=== PATIENT | male | born 1975 | race Caucasian/White ===

== ENCOUNTER 2021-03-02 14:43 | Inpatient (IN) ==
--- NOTE | 2021-03-02 15:54 | XRay Report ---
XR chest 2V PA/lateral CLINICAL HISTORY: Atypical chest pain TECHNIQUE: AP and lateral frontal radiograph of the chest was obtained. Comparison: None available at the time of this dictation. FINDINGS: No lines and tubes are seen. Cardiomegaly is noted. Faint bibasilar airspace opacities are seen. No e vidence of pleural effusion or pneumothorax. IMPRESSION: Faint bibasilar airspace opacities which may represent atelectasis, pneumonia, and/or aspiration. ACT 112: Negative or not required by law. Electronically signed by: Bhavesh Bourgeois M.D. 03/02/2021 3:52 PM
[2021-03-02 16:29] LABS: Basophils # (auto) 0.03 K/uL (0-0.2); Basophils % (auto) 0.5 %; Eosinophils # (auto) 0.11 K/uL (0-0.5); Eosinophils % (auto) 1.8 %; Hematocrit (blood only) 40.8 % (42-52); Hemoglobin 13.3 g/dL (14.0-18.0); Lymphocytes # (auto) 0.91 K/uL (1.2-3.4); Mean Corpuscular Hgb Conc 32.6 g/dL (32-36); Mean Corpuscular Volume 89.1 fL (80-100); Mean Platelet Volume 10.5 fL (7.4-10.4); Monocytes # (auto) 0.48 K/uL (0.11-0.59); Monocytes % (auto) 7.9 %; Neutrophils # (auto) 4.53 K/uL (1.4-6.5); Neutrophils % (auto) 74.8 %; Platelet Count 204 K/uL (130-400); RDW Coefficient of Variation 13.8 % (11.5-14.5); RDW Standard Deviation 44.6 fL (36.4-46.3); Red Blood Count 4.58 M/uL (4.7-6.1); White Blood Count 6.06 K/uL (4.8-10.8)
[2021-03-02 16:40] LABS: INR 1.1 (0.9-1.1); Partial Thromboplastin Time 25.7 Seconds (21.0-31.0); Prothrombin Time 11.5 Seconds (9.0-12.0)
[2021-03-02 16:46] LABS: Albumin Level 3.4 gm/dl (3.4-5.0); BUN Creatinine Ratio 17.5 (10-20); Creatinine Clr Calc Pharmacy 90.6 ml/min; Est GFR (African American) 81.1 ml/min; Potassium 3.5 mmol/L (3.5-5.1)
[2021-03-02] MEDS ORDERED: FUROSEMIDE 40 MG/4 ML VIAL IV ONE (16:54)
[2021-03-02] MEDS ORDERED: NITROGLYCERIN 2% OINTMENT 30GM TUBE EXT STA (16:57)
--- NOTE | 2021-03-02 16:57 | Emergency Department Note ---
Impression & Plan SOB (shortness of breath), Cardiomyopathy, Pedal edema, CHF (congestive heart failure), Elevated troponin ED Provider Note NAME: SUE QUINN AGE: 45 SEX: M : 1975 ARRIVES VIA: Walk-In INFORMANT: [Patient] ED PROVIDER(S): [Parrish Summers MD] CHIEF COMPLAINT: Swelling, short of breath HISTORY OF PRESENT ILLNESS: The patient is a 45-year-old male who presents to the ER with a cough that has been ongoing for multiple months. No fever. The cough has been dry. In the last several months, he has also noticed increasing edema. The swelling started in his feet and has now spread to his abdomen. He has noticed exertional shortness of breath and some difficulty sleeping. The patient states that any exertion causes him to be winded. There has been no chest pain. No vomiting or diarrhea. No urinary difficulty. He has no history of heart or lung disease. The patient spoke with his [facility] office and was referred to the ED for further testing. Of note, the patient is not vaccinated for COVID-19 or influenza. No Covid exposures. REVIEW OF SYSTEMS: See HPI for pertinent positives and negatives. A total of ten systems were reviewed and were otherwise negative. PMHx/PSHx: See Below SOCIAL HISTORY: See Below. PHYSICAL EXAM: GENERAL: Patient is in no acute distress. HEENT: No acute trauma, normocephalic atraumatic, mucous membranes moist, no nasal congestion, no scleral icterus. NECK: No stridor, no adenopathy, no meningismus, trachea is midline. LUNGS: He does have some crackles bilaterally, worse on the left. No wheezing. No respiratory distress. HEART: Tachycardic, no murmurs, regular rhythm. ABDOMEN: Soft, nontender, bowel sounds positive, no hernias, no peritonitis. Abdominal wall edema noted. EXTREMITIES: No cyanosis. Marked bilateral pedal edema extending up from the feet to the thighs. NEUROLOGIC: Oriented x 3, no acute motor or sensory deficits, no focal weakness. SKIN: No rash, no jaundice, no diaphoresis. DIFFERENTIAL DIAGNOSIS: Reactive airway disease, pneumonia, cardiomyopathy, COVID-19, renal or liver failure, pleural effusion, pneumothorax, COPD, CHF, infection, cardiac ischemia, pulmonary embolism, bronchitis, musculoskeletal, gastrointestinal, as well as other pathologies. EMERGENCY DEPARTMENT COURSE/PROCEDURES: ECG: Indication was shortness of breath. The ECG shows a sinus tachycardia with a rate of 109. There is some nonspecific ST change particularly in the lateral leads. There is no ST elevation, no PVCs. The QTc is 495. No old ECGs available for comparison. Continuous Cardiac Monitoring: An order was placed for continuous cardiac monitoring. The monitor shows a rate of 106 with sinus tachycardia. MEDICAL DECISION MAKING: There is no leukocytosis. A very mild anemia was present. There was a normal platelet count. No coagulopathy. No significant electrolyte abnormality or kidney failure. No concerning liver enzyme elevation. TSH was normal. BNP was quite elevated consistent with fluid overload and CHF. Chest film does show marked cardiomegaly as well as some presumed mild CHF. ECG shows a sinus tachycardia with some nonspecific change, no ST elevation. Cardiac enzyme testing x1 does show a slight elevation indicating some cardiac injury or strain. Covid testing is pending. The patient presents hypertensive, tachycardic and short of breath. He is markedly edematous. He appears to have CHF and cardiomegaly by work-up. The patient had a Dias catheter ordered. He was given IV Lasix, nitroglycerin paste. I did speak with cardiology. Hospitalization, diuresis, further work-up is in order. He will require a cardiac echo. I did speak with the patient about his findings, I spoke with the employment case manager. The on-call hospitalist was consulted. Past Med/Surg History Medical History No significant medical problems Social History Smoking Status: Never smoker Feels Safe at Home: Yes Allergies Allergies Allergy/AdvReac Type Severity Reaction Status Date / Time No Known Allergies Allergy Unverified 03/02/21 17:41 Home Meds Home Medications Medication Instructions Recorded Confirmed ibuprofen 200 mg tablet 0 mg PO Q6H PRN 03/02/21 03/02/21 Results & Data (ED) Vital Signs Vital Signs - 24 hr 03/02/21 15:15 Temperature 36.8 C Temperature Source Temporal Artery Scan Pulse Rate 110 H Respiratory Rate 22 Respiratory Effort / Characteristics Non-Labored Spontaneous Respiratory Depth Normal Blood Pressure 221/140 H Blood Pressure Mean 167 Pulse Oximetry 99 Oxygen Delivery Method Room Air Sepsis Recent Fever Within 48 Hours No Sepsis New/Unexplained Change in Mental Status No Sepsis Action Taken by Nursing No Action Required Home Medications Current Medication List: was personally reviewed by me Laboratory Data Attestation: I reviewed the patient's lab results. Result diagrams: 03/02/21 16:10 03/02/21 16:10 Lab Results 03/02/21 03/02/21 03/02/21 Range/Units 16:10 16:10 16:10 WBC 6.06 (4.8-10.8) K/uL RBC 4.58 L (4.7-6.1) M/uL Hgb 13.3 L (14.0-18.0) g/dL Hct 40.8 L (42-52) % MCV 89.1 (80-100) fL MCH 29.0 (25-34) pg MCHC 32.6 (32-36) g/dL RDW Std Deviation 44.6 (36.4-46.3) fL RDW Coeff of Sri 13.8 (11.5-14.5) % Plt Count 204 (130-400) K/uL MPV 10.5 H (7.4-10.4) fL Immature Gran % (Auto) 0.0 % Neut % (Auto) 74.8 % Lymph % (Auto) 15.0 % [place] % (Auto) 7.9 % Eos % (Auto) 1.8 % Baso % (Auto) 0.5 % Neut # (Auto) 4.53 (1.4-6.5) K/uL Lymph # (Auto) 0.91 L (1.2-3.4) K/uL [place] # (Auto) 0.48 (0.11-0.59) K/uL Eos # (Auto) 0.11 (0-0.5) K/uL Baso # (Auto) 0.03 (0-0.2) K/uL Immature Gran # (Auto) 0.00 (0.00-0.02) K/uL PT 11.5 (9.0-12.0) Seconds INR 1.1 (0.9-1.1) APTT 25.7 (21.0-31.0) Seconds PTT Ratio 1.0 Sodium 138 (136-145) mmol/L Potassium 3.5 (3.5-5.1) mmol/L Chloride 103 (98-107) mmol/L Carbon Dioxide 30 (21-32) mmol/L Anion Gap 5.0 (3-11) BUN 22 H (7-18) mg/dl Creatinine 1.23 (0.6-1.4) mg/dl Est Cr Clr Drug Dosing 90.6 ml/min Est GFR ( Amer) 81.1 ml/min Est GFR (Non-Af Amer) 70.0 ml/min BUN/Creatinine Ratio 17.5 (10-20) Glucose 124 H (70-99) mg/dl Calcium 9.0 (8.5-10.1) mg/dl Magnesium (1.8-2.4) mg/dl Total Bilirubin 0.9 (0.2-1) mg/dl AST 29 (15-37) U/L ALT 41 (12-78) Alkaline Phosphatase 81 (45-117) U/L Troponin I 0.059 H* (0-0.045) ng/ml NT-Pro-B Natriuret Pep (0-450) pg/ml Total Protein 7.7 (6.4-8.2) gm/dl Albumin 3.4 (3.4-5.0) gm/dl Globulin 4.3 H (2.5-4.0) gm/dl Albumin/Globulin Ratio 0.8 L (0.9-2) TSH (0.300-4.500) uIu/ml 03/02/21 Range/Units 16:10 WBC (4.8-10.8) K/uL RBC (4.7-6.1) M/uL Hgb (14.0-18.0) g/dL Hct (42-52) % MCV (80-100) fL MCH (25-34) pg MCHC (32-36) g/dL RDW Std Deviation (36.4-46.3) fL RDW Coeff of Sri (11.5-14.5) % Plt Count (130-400) K/uL MPV (7.4-10.4) fL Immature Gran % (Auto) % Neut % (Auto) % Lymph % (Auto) % [place] % (Auto) % Eos % (Auto) % Baso % (Auto) % Neut # (Auto) (1.4-6.5) K/uL Lymph # (Auto) (1.2-3.4) K/uL [place] # (Auto) (0.11-0.59) K/uL Eos # (Auto) (0-0.5) K/uL Baso # (Auto) (0-0.2) K/uL Immature Gran # (Auto) (0.00-0.02) K/uL PT (9.0-12.0) Seconds INR (0.9-1.1) APTT (21.0-31.0) Seconds PTT Ratio Sodium (136-145) mmol/L Potassium (3.5-5.1) mmol/L Chloride (98-107) mmol/L Carbon Dioxide (21-32) mmol/L Anion Gap (3-11) BUN (7-18) mg/dl Creatinine (0.6-1.4) mg/dl Est Cr Clr Drug Dosing ml/min Est GFR ( Amer) ml/min Est GFR (Non-Af Amer) ml/min BUN/Creatinine Ratio (10-20) Glucose (70-99) mg/dl Calcium (8.5-10.1) mg/dl Magnesium 2.2 (1.8-2.4) mg/dl Total Bilirubin (0.2-1) mg/dl AST (15-37) U/L ALT (12-78) Alkaline Phosphatase (45-117) U/L Troponin I (0-0.045) ng/ml NT-Pro-B Natriuret Pep 96295 H (0-450) pg/ml Total Protein (6.4-8.2) gm/dl Albumin (3.4-5.0) gm/dl Globulin (2.5-4.0) gm/dl Albumin/Globulin Ratio (0.9-2) TSH 2.190 (0.300-4.500) uIu/ml Imaging Data Radiologist's Impression: Chest X-Ray 03/02/21 15:18 XR chest 2V PA/lateral CLINICAL HISTORY: Atypical chest pain TECHNIQUE: AP and lateral frontal radiograph of the chest was obtained. Comparison: None available at the time of this dictation. FINDINGS: No lines and tubes are seen. Cardiomegaly is noted. Faint bibasilar airspace opacities are seen. No evidence of pleural effusion or pneumothorax. IMPRESSION: Faint bibasilar airspace opacities which may represent atelectasis, pneumonia, and/or aspiration. ACT 112: Negative or not required by law. Electronically signed by: Bhavesh Bourgeois M.D. 03/02/2021 3:52 PM Discharge Plan Visit Data Chief Complaint: Swelling/Edema to Extremity Stated Complaint: SWELLING IN FEET, SOB, COUGH ED Provider: Parrish Summers Discharge Problem: SOB (shortness of breath), Cardiomyopathy, Pedal edema, CHF (congestive heart failure), Elevated troponin Patient Disposition: Admitted As Inpatient Condition: Fair Forms Stand Alone Forms: [facility] Prescriptions Prescriptions: No Action ibuprofen 200 mg Tablet 0 mg PO Q6H PRN (Reason: Pain) RF: 0 Referrals Referrals: PCP,NO [Primary Care Provider] -
[2021-03-02 16:58] LABS: Albumin Globulin Ratio 0.8 (0.9-2); Bilirubin,Total 0.9 mg/dl (0.2-1); Globulin 4.3 gm/dl (2.5-4.0); Total Protein 7.7 gm/dl (6.4-8.2); Troponin I 0.059 ng/ml (0-0.045)
[2021-03-02 17:24] LABS: Magnesium 2.2 mg/dl (1.8-2.4); Thyroid Stimulating Hormone 2.19 uIu/ml (0.300-4.500)
--- NOTE | 2021-03-02 18:05 | History & Physical Report ---
Date of Service March 02, 2021 Assessment & Plan (1) Hypertensive emergency: Plan: This is a 45-year-old male with no known past medical history who presents with progressive swelling over the past 2 months and was found to have hypertensive emergency with decompensated heart failure. Initial BP 221/140, received 1" paste, repeat BP 234/153 Evidence of heart failure, proteinuria indicating end organ damage Given 20mg IV Labetalol in ED, but BP increased again Case discussed with Dr. Weller and Dr. Mark. Admitting to ICU for ntg drip and close monitoring During first 24 hours, SBP no lower than 170 (2) Acute decompensated heart failure: Plan: Progressive edema over past 2 months extending from feet up to chest. Also with cough, dyspnea on exertion, orthopnea, PND pro-BNP 17,147 CXR with faint bibasilar airspace opacities which may represent atelectasis, pneumonia, and/or aspiration Case discussed with Dr. Weller in ED and 60mg IV Lasix given in ED Echocardiogram in AM Strict I&Os with barrientos in place, daily weights, low sodium diet, supplemental O2 as needed (3) Elevated troponin: Plan: Initial trop 0.059 in setting of hypertensive emergency and heart failure No CP or significant ischemia on EKG Trend troponin, monitor on tele (4) Alcohol use: Plan: History of heavy alcohol use, has decreased to 2 beers 3x/week AWSS protocol, IV ativan as needed DVT Ppx: SQ heparin Code status: FULL PCP: Previously followed with [facility] Dispo: Admitted to ICU Patient seen in collaboration with Dr. De Luna. Please see addendum. History of Present Illness Chief Complaint: Edema Primary Care Provider: NO PCP This is a 45-year-old male with no known past medical history who presents with progressive swelling over the past 2 months. First noted swelling in feet and then legs and it extended up to chest earlier this week. Patient endorsing dry cough, dyspnea on exertion, orthopnea and PND. Has a high sodium diet. Denies any previous diagnosis of cardiomyopathy or heart failure but does have significant heart disease history and family. Denies any fever, chills or chest pain. No nausea, vomiting, abdominal pain, dysuria, diarrhea constipation. Did not take any home medications besides occasional Advil. Last seen by [facility] provider back in 2014. States he was started on a blood pressure med then that was discontinued. Has not followed up with primary care since then. Chews tobacco. Has significant alcohol history but is decreased use to 2 beers 3x/week. Called [facility] for appointment today but was directed to come to ER for further evaluation. Allergies Allergy/AdvReac Type Severity Reaction Status Date / Time No Known Allergies Allergy Unverified 03/02/21 17:41 Home Medications Medication Instructions Recorded Confirmed Type ibuprofen 200 mg tablet 0 mg PO Q6H PRN 03/02/21 03/02/21 History Past Med/Surg History Medical History (Updated 03/03/21 @ 15:37 by Laly De Luna, DO) No significant medical problems Surgical History No history of previous surgery Family History Other Diabetes Heart disease Social History (Updated 03/02/21 @ 21:28 by Monica Santos PA-C) Smoking Status: Never smoker Tobacco Type: Smokeless Tobacco (Dip or Chew) Hx Alcohol Use: Yes Alcohol type: beer Alcohol type Comment: 2 beers 3x/week Hx Substance Use: No Preferred Language: Hungarian Communication Ability: Effective Director News Required: No Beliefs That Will Affect Care: None marital status: Current Living Situation: Spouse and Family Feels Safe at Home: Yes Assistive Devices: Oxygen - at Night Review of Systems Review of Systems: At least ten systems reviewed and negative except as noted in the HPI. Physical Exam Physical Exam: General Appearance: WD/WN, vitals as above, NAD, sitting up in bed, pleasant, conversing easily Head: normocephalic, atraumatic Eyes: normal inspection, PERRL, conjunctivae normal, anicteric sclerae ENT: external ear and nose normal, oropharynx normal Neck: normal visual inspection, trachea midline, no thyromegaly Respiratory: normal respiratory effort, bibasilar rales. No accessory muscle use Cardiovascular: tachycardic rate, regular rhythm, no murmur, normal peripheral pulses, 2+ BLE edema extending from feet up to chest wall. Vessels: + JVD Chest: normal inspection of chest Abdomen/GI: normal bowel sounds, soft but distended, nontender, no hepatosplenomegaly Extremities/Musculoskeletal: no cyanosis or clubbing, extremities motor strength 5/5 Neurologic: PERRL, EOMI, accommodation nl, no face palsy, no dysarthria, CN's II-XI intact bilaterally and moves all extremities Psychiatric: A+Ox3, euthymic affect Skin: no rashes, normal color, warm/dry Results & Data Results & Data ([facility]) Vital Signs (Past 12 Hours) Vital Signs Temp Pulse Resp BP Pulse Ox 03/02/21 15:15 36.8 C 110 H 22 221/140 H 99 Laboratory Results Short CBC 03/02/21 Range/Units 16:10 WBC 6.06 (4.8-10.8) K/uL Hgb 13.3 L (14.0-18.0) g/dL Hct 40.8 L (42-52) % Plt Count 204 (130-400) K/uL BMP 03/02/21 16:10 Sodium 138 Potassium 3.5 Chloride 103 Carbon Dioxide 30 BUN 22 H Creatinine 1.23 Glucose 124 H Calcium 9.0 Cardiac Enzymes 03/02/21 Range/Units 16:10 Troponin I 0.059 H* (0-0.045) ng/ml Liver Function 03/02/21 Range/Units 16:10 Total Bilirubin 0.9 (0.2-1) mg/dl AST 29 (15-37) U/L ALT 41 (12-78) Alkaline Phosphatase 81 (45-117) U/L Albumin 3.4 (3.4-5.0) gm/dl Urine 03/02/21 Range/Units 18:40 Urine Color Dark Yellow Urine Appearance Clear (Clear) Urine pH 5.0 (4.5-7.5) Ur Specific [place] 1.020 (1.000-1.030) Urine Protein 3+ H (Negative) Urine Glucose (UA) Negative (Negative) Diagnostic Findings Chest X-Ray 03/02/21 15:18 XR chest 2V PA/lateral CLINICAL HISTORY: Atypical chest pain TECHNIQUE: AP and lateral frontal radiograph of the chest was obtained. Comparison: None available at the time of this dictation. FINDINGS: No lines and tubes are seen. Cardiomegaly is noted. Faint bibasilar airspace opacities are seen. No evidence of pleural effusion or pneumothorax. IMPRESSION: Faint bibasilar airspace opacities which may represent atelectasis, pneumonia, and/or aspiration. ACT 112: Negative or not required by law. Electronically signed by: Bhavesh Bourgeois M.D. 03/02/2021 3:52 PM Code Status & VTE Plan VTE Prophylaxis Plan VTE Prophylaxis will be ordered: Yes Supervising Physician Co-Signing Physician Notes I have seen and examined the patient and have discussed the case with the provider above. I agree with the assessment and plan as stated. 45 yo M with hypervolemia 2/2 uncertain etiology. No medical history. Suspect involvement from heart, liver and/or kidneys. He appears WNWD and hypervolemic. He is comfortable and laid back, not working to breathe. Lungs are clear to auscultation and cardiac auscultation reveals S1/2 without murmurs, gallops or rubs. There is pitting edema above his hips bilaterally. He reports scrotum is swollen and , who is at bedside, states that he has sacral pitting edema. Check UA for protein, echo as above. Agree with ICU for parenteral management of hypertensive emergency and continued investigation. Otherwise cont plan as above. DO Calixto
[2021-03-02] MEDS ORDERED: LABETALOL HCL IV 5 MG/ML 20ML IV STA ×2 (18:33→22:00)
[2021-03-02 18:53] LABS: Appearance Urine Clear (Clear); Bacteria Urine Automated Negative (Negative); Bilirubin Urine Negative (Negative); Blood Urine 1+ (Negative); Color Urine Dark Yellow; Epithelial Cell Urine Auto >30 /lpf (0-5); Glucose Urine UA Negative (Negative); Ketones Urine Negative (Negative); Leukocyte Esterase Urine Negative (Negative); Nitrite Urine Negative (Negative); Protein Urine 3+ (Negative); Urobilinogen Urine Negative (Negative)
[2021-03-02] MEDS ORDERED: STAT IV Infusion **Titration per Protocol STA (19:00)
[2021-03-02] MEDS ORDERED: NITROGLYCERIN/D5W 100MCG/ML 250 ML IV SCH (19:32)
[2021-03-02] MEDS ORDERED: POLYETHYLENE (MIRALAX) 17 GM PACK PO PRN (19:32)
[2021-03-02] MEDS ORDERED: ONDANSETRON INJ 2 MG/ML 2 ML VIAL IV PRN (19:32)
[2021-03-02] MEDS ORDERED: ACETAMINOPHEN 325 MG TAB PO PRN (19:32)
[2021-03-02] MEDS ORDERED: ICU PROTOCOL FOR HYPERGLYCEMIA PRN (19:32)
[2021-03-02] MEDS: NITROGLYCERIN/D5W 100 MCG/ML BTL ONE ×2 (19:37)
[2021-03-02] MEDS ORDERED: LORazepam 1 MG/2 ML VIAL IV PRN (21:34)
[2021-03-02] MEDS ORDERED: amLODIPine BESYLATE 5 MG TAB PO ONE (22:03)
--- NOTE | 2021-03-02 22:05 | Critical Care Consultation ---
Date of Consultation March 02, 2021 Assessment & Plan (1) Hypertensive emergency: Impression: 45-year-old male presents to the ICU with hypertensive emergency requiring nitro drip and decompensated heart failure. Currently undergoing blood pressure control with high parameters and diuresis. Neuro - [facility] ICU: Negative Cardiac - Hypertensive emergencyinitial blood pressure of 221/140 treated with IV labetalol and Nitropaste but became increasingly hypertensive and now requiring nitro drip. -Mildly elevated troponin, will trend for now. +3 proteins in urine -Added on IV labetalol as needed in hopes to titrate nitro drip. Goal SBP 170-190 for the first 24 hours -Cardiology consulted, will appreciate recommendations Decompensated heart failureno known history of heart failure but does have family history -Received IV Lasix in ED with good response, thus far -1.6 L. We will continue with diuresis as patient has BNP 17,000 and volume overloaded on exam. -Mildly elevated troponin (trending), no ST changes on EKG -Follow-up cardiology recommendations -Echo pending -Continuous monitoring on telemetry Respiratory - No history of pulmonary disease. History of tobacco use is smokeless. Patient does have dyspnea with exertion, expect to improve with diuresis. He is currently maintaining oxygen saturation on room air without respiratory distress. Continuous monitoring pulse ox BLE Doppler negative for DVT GI - Low-sodium diet RENAL/LYTES - Creatinine stable at 1.23. Monitor routine BMPs and replete electrolytes as indicated. - Strict I's and O's ENDO - No history of diabetes or thyroid disease. TSH within normal limits ICU hyperglycemic protocol HEME - H&H stable, monitor routine CBCs ID - No indication for infectious process at this time LINES/IV ACCESS - Peripheral IVs x2 DVT PROPHYLAXIS - SCDs, subcu heparin Thank you for allowing us to participate in the care of this patient. Please refer to my attending physician's documentation for any further recommendations. (2) Elevated troponin: (3) Acute decompensated heart failure: (4) Alcohol use: History of Present Illness Attending Physician: Laly De Luna, History of Present Illness Patient is a 45-year-old male with out known past medical history who presents today emergency department with complaints of generalized swelling primarily in the lower extremities bilaterally, cough, dyspnea with exertion. Patient states that he has not been to primary care physician in the past 6 years but has no previous history of hypertension or heart failure. Patient had attempted to schedule a clinic appointment earlier today but was directed to come to the ER for evaluation. On arrival to the emergency department he was found to be in hypertensive emergency with blood pressure 221/140. Patient had mildly elevated troponin and +3 proteins in urine, elevated BNP 17,000. He is initially given Lasix and labetalol and 1 inch Nitropaste was administered. Patient became hypertensive again and was placed on nitro drip. He is now admitted to ICU for further management. On evaluation, patient denies headache or dizziness, recent illnesses or fevers or sore throat, chest pain or palpitations, abdominal pain, nausea or vomiting or diarrhea. He does condone shortness of breath and's what appears to be pleuritic chest pain with coughing. Patient states that he has had a dry cough for the past few months without sputum production. Patient has +3 edema bilaterally in lower extremities. Allergies Allergy/AdvReac Type Severity Reaction Status Date / Time No Known Allergies Allergy Unverified 03/02/21 17:41 Home Medications Medication Instructions Recorded Confirmed Type ibuprofen 200 mg tablet 0 mg PO Q6H PRN 03/02/21 03/02/21 History Patient History Medical History (Updated 03/02/21 @ 21:20 by Monica Santos PA-C) No significant medical problems Surgical History No history of previous surgery Family History Other Diabetes Heart disease Social History (Updated 03/02/21 @ 21:28 by Monica Santos PA-C) Tobacco Type: Smokeless Tobacco (Dip or Chew) Hx Alcohol Use: Yes Alcohol type: beer Alcohol type Comment: 2 beers 3x/week Hx Substance Use: No Feels Safe at Home: Yes Review of Systems Review of Systems: All systems reviewed & are unremarkable except as noted in HPI & below Physical Exam Constitutional: cooperative and comfortable Eyes: PERRL, conjunctivae normal, anicteric sclerae ENMT: external ear and nose normal, oropharynx normal Neck: trachea midline, no thyromegaly Respiratory: normal respiratory effort, lungs clear to auscultation + cough (Nonproductive); no labored breathing and not tachypneic Cardiovascular: RRR, no murmur, no edema Heart Sounds: normal S1 and normal S2; no murmur Extremities: + edema (+3 bilateral lower extremity) Gastrointestinal (Abdomen): Inspection/Auscultation: normal bowel sounds and + abdominal edema Percussion/Palpation: abdomen nontender Musculoskeletal: no cyanosis or clubbing, extremities motor strength 5/5 Skin: no rashes, warm and dry Neurologic: PERRL, EOMI, accommodation nl, no face palsy, no dysarthria Psychiatric: A+Ox3, euthymic affect Results & Data Results & Data ([facility]) Vital Signs (Past 12 Hours) Vital Signs Temp Pulse Pulse Resp BP BP Pulse Ox 03/02/21 20:45 97 H 22 189/124 H 92 03/02/21 20:40 97 H 20 179/115 H 92 03/02/21 20:35 97 H 20 175/109 H 92 03/02/21 20:30 98 H 20 181/118 H 95 03/02/21 20:26 94 H 20 179/107 H 96 03/02/21 20:20 96 H 20 191/130 H 94 03/02/21 20:10 80 20 172/124 H 94 03/02/21 20:05 78 20 185/140 H 94 03/02/21 20:00 83 20 179/123 H 94 03/02/21 19:55 75 18 165/123 H 95 03/02/21 19:50 79 18 168/120 H 95 03/02/21 19:41 78 18 167/115 H 96 03/02/21 18:46 191/149 H 03/02/21 18:00 234/153 H 03/02/21 15:15 36.8 C 110 H 22 221/140 H 99 Coding Level of Care Code 95659 Inpt Consult Level 3 Diagnoses Elevated troponin R77.8 Hypertensive emergency I16.1 Acute decompensated heart failure I50.9 Alcohol use Z72.89
[2021-03-02] MEDS: HEPARIN SOD 5,000 UNIT/0.5 ML VIAL SQ SCH (22:25)
--- NOTE | 2021-03-02 22:32 | Ultrasound Report ---
US venous doppler LE BI CLINICAL HISTORY: Bilateral leg swelling COMPARISON: None available at the time of this dictation. TECHNIQUE: Bilateral lower extremity real-time compression venous ultrasound with Color Doppler imagi ng. Utilizing real-time ultrasonic imaging multiple real time high-resolution ultrasonic images with comp ression and noncompression maneuvers of the deep venous system in addition to color doppler imaging w ere performed from the common femoral vein through the proximal calf veins. FINDINGS: Currently there is normal compressibility of the deep venous system from the common femoral vein thro ugh the proximal calf veins. No current evidence of acute thrombosis is identified. Incidental note is made of a popliteal cyst on the right measuring approximately 2.8 x 3.5 x 1.1 cm. Impression: No evidence of deep venous thrombus. Right popliteal cyst. ACT 112: Negative or not required by law. Electronically signed by: Jackson Juares M.D. 03/02/2021 10:30 PM
[2021-03-03] MEDS ORDERED: COUGH DROP (SUGAR FREE) LOZ 24 LOZ/1 BOX BUCCAL ONE (01:05)
[2021-03-03] MEDS: LABETALOL HCL IV 5 MG/ML 20ML IV PRN ×4 (04:28→23:41)
[2021-03-03] MEDS ORDERED: KETOROLAC TROMETHAMINE 15 MG/ML VIAL IV ONE (04:42)
[2021-03-03 04:51] LABS: Hematocrit (blood only) 37.9 % (42-52); Hemoglobin 12.2 g/dL (14.0-18.0); Mean Corpuscular Hemoglobin 28.9 pg (25-34); Mean Corpuscular Hgb Conc 32.2 g/dL (32-36); Mean Corpuscular Volume 89.8 fL (80-100); Mean Platelet Volume 10.4 fL (7.4-10.4); Platelet Count 210 K/uL (130-400); RDW Standard Deviation 45.4 fL (36.4-46.3); Red Blood Count 4.22 M/uL (4.7-6.1); White Blood Count 6.51 K/uL (4.8-10.8)
[2021-03-03 05:20] LABS: BUN Creatinine Ratio 17.2 (10-20); Calcium 8.7 mg/dl (8.5-10.1); Creatinine Clr Calc Pharmacy 82.5 ml/min; Est GFR (African American) 68.7 ml/min; Est GFR (Non-African American) 59.3 ml/min; Magnesium 2.1 mg/dl (1.8-2.4); Potassium 3.3 mmol/L (3.5-5.1)
[2021-03-03 05:24] LABS: Phosphorus 3.8 mg/dl (2.5-4.9)
[2021-03-03] MEDS ORDERED: LABETALOL HCL IV 5 MG/ML 20ML IV STA (05:37)
[2021-03-03] MEDS: HEPARIN SOD 5,000 UNIT/0.5 ML VIAL SQ SCH ×3 (05:54→21:25)
[2021-03-03] MEDS ORDERED: NITROGLYCERIN 2% OINTMENT 30GM TUBE EXT SCH (06:00)
--- NOTE | 2021-03-03 07:33 | XRay Report ---
XR chest 1V portable CLINICAL HISTORY: Resp failure TECHNIQUE: Single frontal radiograph of the chest was obtained. Comparison: Comparison is made to chest 2 views 03/02/2021 FINDINGS: No lines and tubes are seen. Cardiomegaly is noted. Prominence and cephalization of the vasculature i s seen. There is a left retrocardiac opacity. No evidence of pleural effusion or pneumothorax. IMPRESSION: Mild pulmonary edema. A left retrocardiac opacity may reflect atelectasis, pneumonia, and/or aspirati on. ACT 112: Negative or not required by law. Electronically signed by: Bhavesh Bourgeois M.D. 03/03/2021 7:31 AM
[2021-03-03 07:38] LABS: Estimated Average Glucose 120 mg/dl; Hemoglobin A1C 5.8 % (4.5-5.6)
[2021-03-03] MEDS ORDERED: POTASSIUM CHLORIDE CRTAB 20 MEQ TABCR PO STA ×2 (08:07→17:21)
--- NOTE | 2021-03-03 08:29 | Cardiology Consultation ---
Date of Consultation March 03, 2021 Assessment & Plan (1) Hypertensive emergency: (2) Acute HFrEF (heart failure with reduced ejection fraction): (3) Proteinuria: -Bedside Echocardiogram performed this morning and reviewed independently. Formal report to follow. At least moderate (perhaps severe) concentric left ventricular hypertrophy is present along with a trace circumferential pericardial effusion, and severe global left ventricular hypokinesis, qualitative left ventricular ejection fraction 25-29%. Patient has been found to have 3+ protein on urinalysis. A Dias catheter is in place. The patient has risk factors for coronary heart disease especially given his family history, his presentation suggests a nonischemic cardiomyopathy. Perhaps this is related to severe longstanding uncontrolled hypertension with hypertension related heart and kidney disease. Secondary hypertension is a consideration. Also echocardiogram findings could be consistent with infiltrative cardiomyopathy such as cardiac amyloidosis. With regards to his hypertension, his systolic blood pressure is now down from a presenting measurement of greater than 200 mmHg, to the 170s to 180s mm Hg range. IV nitroglycerin has been discontinued. Continue toprical nitroglycerin for now. Continue furosemide 40 mg IV this am , although , an additional dose this afternoon will be considered. Amlodipine has been discontinued due to concerns that it may worsend fluide retention. The patient's mildly elevated troponin is related to his volume overload, and left ventricular systolic dysfunction and does not represent an acute coronary syndrome. His EKG may be reflective of underlying ischemia or left ventricular hypertrophy. Diagnostics: Proceed with 24-hour urine collection for protein, urine catecholamines, urine metanephrines. Serum aldosterone and renin levels have been ordered. Serum electrophoresis, protein electrophoresis have been requested. A renal ultrasound has been requested. Therapeutics: Potassium chloride supplementation already ordered per the ICU team. We will consider adding spironolactone after the serum renin/aldosterone levels have been drawn as well as the 24-hour urine collection. Start carvedilol furosemide as noted, topical nitrates. A goal reduction in the presenting systolic BP of 25% has already been achieved. Agree with SQ heparin for DVT prophylaxis. History of Present Illness Attending Physician: Laly De Luna, History of Present Illness Dayton Holliday is a 45 year old male seen in cardiology consultation per the request of Monica Santos PA-C for the evaluation of edema, cardiomegaly on chest X-ray, and hypertensive emergency. The patient states that his recent complaints detracted to October, when he started noticing a cough and shortness of breath. Shortness of breath would occur both at rest when trying to lie down as well as with minimal exertion. By November, he started noticing swelling, first in his feet, but it has since progressed. Over the last few weeks, the patient spouse became progressively more concerned with the degree of severe swelling in his lower legs and abdomen. He ultimately presented to the emergency room yesterday and was found to have edema up to his mid chest. Chest x-ray revealed severe enlargement of the cardiac silhouette, left pleural effusion is noted. He was severely hypertensive upon presentation with a systolic blood pressure in excess of 200 mmHg. Patient has not seen medical care for approximately 5 years. He recalls being diagnosed with high blood pressure when he was around 39 years old and there was discussion with regards to placing him on medication. He was later diagnosed with "whitecoat" hypertension, and has not been on medication. Due to the severe hypertension requiring IV medications he was admitted to the intensive care unit from the emergency room last evening and received transient treatment with IV nitroglycerin which has since been titrated off. He received 60 mg of IV furosemide last evening, and is due to receive another 40 mg now. Dias catheter has been placed, and he has also received several doses of IV labetalol. His most recent systolic blood pressure is down to the upper 170s to 180 range. He feels comfortable, lying flat at present. He denies any chest discomfort. Denies subjective palpitations. Telemetry reveals sinus rhythm in the 90s. Past Medical History: Perhaps hypertension, untreated Family History: Mother at the age of 64 with h/o brain aneurysm possibly esophageal or lung carcinoma (pt not sure) Father, Dayton Holliday, alive at age of 67, h/o CAD, MS, CABG, coronary stents Perhaps has a pacemaker or AICD 2 Brothers, no heart disease Social History: Non smoker 2 beers, 3 x per week. Previously worked in construction More recently works in [email or web address] , spouse, Maddie Allergies Allergy/AdvReac Type Severity Reaction Status Date / Time No Known Allergies Allergy Unverified 03/02/21 17:41 Home Medications Medication Instructions Recorded Confirmed Type ibuprofen 200 mg tablet 0 mg PO Q6H PRN 03/02/21 03/02/21 History Patient History Medical History (Updated 03/03/21 @ 09:48 by Randy Weller DO) No significant medical problems Surgical History No history of previous surgery Family History Other Diabetes Heart disease Social History (Updated 03/02/21 @ 21:28 by Monica Santos PA-C) Smoking Status: Never smoker Tobacco Type: Smokeless Tobacco (Dip or Chew) Hx Alcohol Use: Yes Alcohol type: beer Alcohol type Comment: 2 beers 3x/week Hx Substance Use: No Preferred Language: Luxembourgish Communication Ability: Effective Analytical Engineer Required: No Beliefs That Will Affect Care: None Current Living Situation: Spouse and Family Other Information That Helps Us Care for You: No Feels Safe at Home: Yes Safety Concerns: Feels Safe At This Time Assistive Devices: None Review of Systems Review of Systems: All systems reviewed & are unremarkable except as noted in HPI & below Physical Exam Physical Exam: Temp Pulse Resp BP Pulse Ox 36.8 C 96 H 21 177/122 H 99 03/03/21 00:22 03/03/21 08:45 03/03/21 08:45 03/03/21 08:45 03/03/21 08:45 Constitutional: WD/WN, vitals as above Respiratory: Auscultation: + diminished lung sounds (decreased BS bilaterally at the bases) Cardiovascular: Rate/Rhythm: regular rhythm Heart Sounds: no murmur Vessels: + JVD Extremities: + edema (2+ BL LE edema) Gastrointestinal (Abdomen): findings consistent with fluid retention Results & Data ([facility]) Vital Signs (Past 12 Hours) Vital Signs Temp Pulse Pulse Resp BP BP Pulse Ox 03/03/21 06:21 79 22 170/103 H 92 03/03/21 06:05 86 22 193/112 H 92 03/03/21 04:46 94 H 22 181/104 H 98 03/03/21 04:30 197/126 H 03/03/21 04:00 101 H 20 178/109 H 92 03/03/21 02:31 104 H 18 174/114 H 92 03/03/21 02:28 99 H 22 182/115 H 94 03/03/21 02:18 100 H 22 174/103 H 93 01/04/22 01:00 102 H 20 170/104 H 96 03/03/21 00:22 36.8 C 96 H 20 181/120 H 98 03/02/21 23:50 96 H 24 164/113 H 92 03/02/21 23:40 96 H 22 177/120 H 94 03/02/21 23:36 96 H 22 179/119 H 94 03/02/21 23:35 98 H 22 175/124 H 96 03/02/21 23:30 80 22 171/125 H 97 03/02/21 23:22 81 18 173/118 H 97 03/02/21 23:15 78 20 172/122 H 96 03/02/21 22:50 78 22 163/115 H 96 03/02/21 22:35 86 22 163/99 H 96 03/02/21 22:30 91 H 22 163/103 H 96 03/02/21 22:29 98 H 22 167/104 H 97 03/02/21 22:15 98 H 24 183/120 H 95 03/02/21 22:10 95 H 22 183/114 H 96 03/02/21 22:05 93 H 22 173/117 H 96 03/02/21 21:55 97 H 22 185/122 H 95 03/02/21 21:50 95 H 24 175/119 H 95 03/02/21 21:45 96 H 22 175/118 H 95 03/02/21 21:40 98 H 20 187/117 H 95 03/02/21 21:35 98 H 22 190/121 H 95 03/02/21 21:30 98 H 22 177/121 H 95 03/02/21 21:25 94 H 20 193/115 H 95 03/02/21 21:20 94 H 20 180/117 H 95 03/02/21 21:15 92 H 20 183/112 H 94 03/02/21 21:10 96 H 22 180/116 H 94 03/02/21 21:05 96 H 22 194/108 H 94 03/02/21 20:55 99 H 22 195/119 H 95 03/02/21 20:50 97 H 20 196/117 H 95 03/02/21 20:45 97 H 22 189/124 H 92 03/02/21 20:40 97 H 20 179/115 H 92 03/02/21 20:35 97 H 20 175/109 H 92 03/02/21 20:30 98 H 20 181/118 H 95 03/02/21 20:26 94 H 20 179/107 H 96 Laboratory Results Cardiac Enzymes 03/02/21 03/02/21 Range/Units 16:10 22:34 AST 29 (15-37) U/L Troponin I 0.059 H* 0.037 (0-0.045) ng/ml Coagulation 03/02/21 Range/Units 16:10 PT 11.5 (9.0-12.0) Seconds APTT 25.7 (21.0-31.0) Seconds Lipids 03/03/21 Range/Units 04:20 Triglycerides 70 (0-150) mg/dl Cholesterol 103 (0-200) mg/dl HDL Cholesterol 27 mg/dl Cholesterol/HDL Ratio 4 CBC 03/02/21 03/03/21 Range/Units 16:10 04:20 WBC 6.06 6.51 (4.8-10.8) K/uL RBC 4.58 L 4.22 L (4.7-6.1) M/uL Hgb 13.3 L 12.2 L (14.0-18.0) g/dL Hct 40.8 L 37.9 L (42-52) % Plt Count 204 210 (130-400) K/uL Neut # (Auto) 4.53 (1.4-6.5) K/uL Lymph # (Auto) 0.91 L (1.2-3.4) K/uL Armstrong # (Auto) 0.48 (0.11-0.59) K/uL Eos # (Auto) 0.11 (0-0.5) K/uL Baso # (Auto) 0.03 (0-0.2) K/uL Comprehensive Metabolic Panel 03/02/21 03/03/21 Range/Units 16:10 04:20 Sodium 138 144 (136-145) mmol/L Potassium 3.5 3.3 L (3.5-5.1) mmol/L Chloride 103 108 H (98-107) mmol/L Carbon Dioxide 30 30 (21-32) mmol/L BUN 22 H 24 H (7-18) mg/dl Creatinine 1.23 1.41 H (0.6-1.4) mg/dl Glucose 124 H 147 H (70-99) mg/dl Calcium 9.0 8.7 (8.5-10.1) mg/dl AST 29 (15-37) U/L ALT 41 (12-78) Alkaline Phosphatase 81 (45-117) U/L Total Protein 7.7 (6.4-8.2) gm/dl Albumin 3.4 (3.4-5.0) gm/dl Intake and Output 03/02/21 03/03/21 03/03/21 22:59 06:59 14:59 Intake Total 7.15 / 744.05 736.9 / 744.05 Output Total 1599 250 / 1850 Balance -1592.85 / -1105.95 486.9 / -1105.95 Intake: IV 7.15 / 44.05 36.9 / 44.05 Nitroglycerin/D5w 100Mcg/ml 250 7.15 / 44.05 36.9 / 44.05 ml @ 0 MCG/MIN IV .Q0M [facility] Rx# :[id number] Oral 700 / 700 Output: Urine Amount (Catheter) 1599 250 / 1850 Dias/Indwelling 1599 250 / 1850 Other: Weight 96.9 kg 105.1 kg Weight Measurement Method Chair Scale Built in [facility] Diagnostic Findings EKG this am reveals SR at 84 bpm with T wave inversions in the precordial leads V3-V6 which are new compared to 03/02/21, QT is prolonged at just over 500 ms , but this is likely related to the morphology of the T waves
[2021-03-03] MEDS ORDERED: HEPARIN SOD 5,000 UNIT/0.5 ML VIAL SQ SCH (09:00)
[2021-03-03] MEDS ORDERED: FUROSEMIDE 40 MG/4 ML VIAL IV SCH (09:00)
[2021-03-03] MEDS ORDERED: amLODIPine BESYLATE 5 MG TAB PO SCH (09:00)
[2021-03-03] MEDS ORDERED: lisinopril 20 MG TAB PO SCH (09:00)
[2021-03-03] MEDS ORDERED: carvediloL 3.125 MG TAB PO SCH (09:30)
[2021-03-03] MEDS ORDERED: IBUPROFEN 200 MG TAB PO STA (10:27)
--- NOTE | 2021-03-03 10:35 | Ultrasound Report ---
ULTRASOUND KIDNEYS AND BLADDER CLINICAL HISTORY: Hypertension. COMPARISON STUDY: No priors. TECHNIQUE: Real-time, grayscale, and color flow sonography of the kidneys and bladder is performed. I mages are reviewed in the transverse and longitudinal planes. FINDINGS: Kidneys: The kidneys are normal in size and echotexture. The right kidney measures 11.9 cm length and the left kidney measures 11.0 cm in length. There is no hydronephrosis. No shadowing renal calculi a re identified. There is no sonographic evidence of contour deforming renal mass lesion. No perinephri c fluid is identified. Bladder: The bladder is decompressed around a Dias catheter and cannot be assessed. Ureteral jets co uld not be evaluated. Upper abdomen: Survey images of the liver show cirrhotic morphology. The spleen is enlarged measuring 15 cm in length. There is trace perisplenic ascites. IMPRESSION: 1. The kidneys are normal in size and without hydronephrosis. 2. The bladder was decompressed and could not be assessed. 3. Cirrhotic liver morphology and splenomegaly. 4. There is trace perisplenic ascites. ACT 112: Negative or not required by law. Electronically signed by: Parrish Edmonds M.D. 03/03/2021 10:34 AM
--- NOTE | 2021-03-03 11:40 | Electrocardiogram Report ---
Test Reason : Blood Pressure : / mmHG Vent. Rate : 109 BPM Atrial Rate : 109 BPM P-R Int : 152 ms QRS Dur : 102 ms QT Int : 368 ms P-R-T Axes : 079 -19 106 degrees QTc Int : 495 ms Sinus tachycardia Possible Left atrial enlargement Nonspecific T wave abnormality Abnormal ECG When compared with ECG of 23-JUL-1996 05:54, Vent. rate has increased BY 37 BPM T wave amplitude has decreased in Inferior leads QT has lengthened Confirmed by Jarret Fu ([id number]) on 03/03/2021 11:40:24 AM Referred By: REFERRED SELF Confirmed By:Jarret Fu
--- NOTE | 2021-03-03 11:53 | Electrocardiogram Report ---
Test Reason : Blood Pressure : / mmHG Vent. Rate : 084 BPM Atrial Rate : 084 BPM P-R Int : 166 ms QRS Dur : 108 ms QT Int : 436 ms P-R-T Axes : 087 -43 109 degrees QTc Int : 515 ms Normal sinus rhythm Possible Left atrial enlargement Left axis deviation T wave abnormality, consider anterolateral ischemia Prolonged QT Abnormal ECG When compared with ECG of 02-MAR-2021 16:15, (unconfirmed) T wave inversion now evident in Anterior leads Confirmed by Jarret Fu ([id number]) on 03/03/2021 11:52:31 AM Referred By: REFERRED SELF Confirmed By:Jarret Fu
--- NOTE | 2021-03-03 13:42 | Critical Care Progress Note ---
Date of Service March 03, 2021 Assessment & Plan (1) Acute HFrEF (heart failure with reduced ejection fraction): (2) Hypertensive emergency: (3) Elevated troponin: (4) Alcohol use: (5) Acute decompensated heart failure: Plan: Impression: 45-year-old male presents to the ICU with hypertensive emergency requiring nitro drip and decompensated heart failure. Currently undergoing blood pressure control with high parameters and diuresis. Neuro - [facility] ICU: Negative Cardiac - Hypertensive emergencyinitial blood pressure of 221/140 treated with IV labetalol and Nitropaste -Mildly elevated troponin, will trend for now. +3 proteins in urine -Added on IV labetalol as needed in hopes to titrate nitro drip. Goal SBP 170 for the first 24 hours -Cardiology on board Decompensated heart failureno known history of heart failure but does have family history - BNP 17,000 on presentation -Mildly elevated troponin (trending), no ST changes on EKG -2D echo shows ejection fraction 25% -Continuous monitoring on telemetry There is possibility of pheochromocytoma. Metanephrines for the urine 24-hour urine has been ordered by cardiology. I will order serum metanephrines Cardiology also thinking for possible amyloidosis. Follow-up serum when urine electrophoresis. Respiratory - No history of pulmonary disease. History of tobacco use is smokeless. Patient does have dyspnea with exertion, expect to improve with diuresis. He is currently maintaining oxygen saturation on room air without respiratory distress. Continuous monitoring pulse ox BLE Doppler negative for DVT --Left-sided pleural effusion Likely from underlying CHF Continue with diuresis GI - Low-sodium diet RENAL/LYTES - -- ANGELES Monitor BUN/creatinine Avoid nephrotoxic medications Strict ins and outs - Strict I's and O's ENDO - No history of diabetes or thyroid disease. TSH within normal limits ICU hyperglycemic protocol HEME - H&H stable, monitor routine CBCs ID - No indication for infectious process at this time --Prophylaxis VTE: Heparin GI: None Lines: Peripheral Diet: Cardiorenal Plan: In/out: -1 L, urine output 1850 Patient has been off nitro drip Hypokalemia being replaced Hold Lasix given the creatinine has gone up. Patient is still in good amount of urine I will repeat BMP later in the afternoon around 3 PM if the creatinine is improved at that time then give 40 mg of Lasix at night There is a possibility of pheochromocytoma as well. Coreg has been started which is nonselective beta-josh along with alpha-josh which can be used when there is a possibility of pheochromocytoma Avoid pure beta-blockers Try to go down on the blood pressure to systolic around 165-175, diastolic 100- 110. Can target lower after 6 PM Patient likely has central sleep apnea from the decreased ejection fraction as well BiPAP nightly Plan was discussed with Dr. Weller I have personally spent 35 minutes of critical care time in the direct management of this patient. This is a life/limb threatening event. This includes time spent evaluating patient, direct bedside care, chart review, placing orders, interpretation of diagnostic studies, discussion with consultants, patient, and family members, as well as other required patient management activities. This time is exclusive of all separately billable procedures, and teaching time and separate from and in addition to any other critical care service time. Please note the above document was generated using voice recognition software. It may contain grammatical, syntax or spelling errors. Admission and Anticipated Discharge Date Admission Date: March 02, 2021 Subjective Patient seen and examined at bedside. No acute distress, no adverse events overnight. Patient has been off nitro drip. At time of examination patient blood pressure was systolic 175, diastolic 121 He said he is feeling better compared to before He did have headache in the morning for which she got ibuprofen Denies any nausea or vomiting. No blurry vision. Review of Systems Review of Systems: All systems reviewed & are unremarkable except as noted in Subjective Physical Exam Physical Exam: Constitutional: No acute distress HEENT: EOMI, PERRLA Respiratory system: Decreased antibiotic, no wheeze, rhonchi, positive crackles bilateral lower lobes CVS: S1-S2 positive, no murmurs or gallops Abdomen: Soft, nontender, nondistended, positive bowel sounds x4, obese Extremities: +2 pulses bilaterally radialis/ dorsalis pedis, no cyanosis, +2 pitting edema bilateral lower extremity, anasarca Neuro: Awake alert oriented x3 Psych: Normal mood and affect G/U: Positive Dias Skin: no rashes, warm and dry Lymphatic: no cervical or axillary lymphadenopathy Results & Data Results & Data ([facility]) Vital Signs (Past 12 Hours) Vital Signs Temp Pulse Pulse Resp BP BP Pulse Ox 03/03/21 12:15 75 26 H 175/116 H 89 L 03/03/21 12:00 93 H 18 192/119 H 96 03/03/21 11:45 93 H 7 L 165/126 H 96 03/03/21 11:31 90 21 169/125 H 97 03/03/21 11:30 93 H 33 H 92 03/03/21 11:25 80 18 173/121 H 95 03/03/21 11:23 92 H 24 179/118 H 95 03/03/21 11:15 85 16 181/127 H 85 L 03/03/21 11:00 93 H 10 L 167/109 H 96 03/03/21 10:45 74 12 175/114 H 94 03/03/21 10:30 95 H 13 197/139 H 87 L 03/03/21 10:19 97 H 21 192/124 H 91 03/03/21 10:00 95 H 29 H 03/03/21 09:30 96 H 16 03/03/21 09:15 93 H 30 H 180/129 H 97 03/03/21 09:00 90 20 183/118 H 97 03/03/21 08:45 96 H 21 177/122 H 99 03/03/21 08:30 36.9 C 91 H 15 185/107 H 96 03/03/21 08:15 88 15 180/101 H 96 03/03/21 08:00 91 H 178/116 H 95 03/03/21 07:45 85 173/119 H 94 03/03/21 07:31 166/106 H 03/03/21 07:15 133/86 03/03/21 07:00 146/90 H 03/03/21 06:21 79 22 170/103 H 92 03/03/21 06:05 86 22 193/112 H 92 03/03/21 04:46 94 H 22 181/104 H 98 03/03/21 04:30 197/126 H 03/03/21 04:00 101 H 20 178/109 H 92 03/03/21 02:31 104 H 18 174/114 H 92 03/03/21 02:28 99 H 22 182/115 H 94 03/03/21 02:18 100 H 22 174/103 H 93 03/03/21 04:20 03/03/21 04:20 Coding Level of Care Code Critical Care 03 29- mins Diagnoses Acute HFrEF (heart failure with reduced ejection fraction) I50.21 Hypertensive emergency I16.1 Elevated troponin R77.8 Alcohol use Z72.89 Acute decompensated heart failure I50.9 Time Spent (min) 35
[2021-03-03 14:26] LABS: Calcium 8.6 mg/dl (8.5-10.1); Creatinine Clr Calc Pharmacy 85.1 ml/min; Est GFR (African American) 71.8 ml/min; Potassium 3.5 mmol/L (3.5-5.1)
--- NOTE | 2021-03-03 15:37 | Hospitalist Progress Note ---
Date of Service March 03, 2021 Assessment & Plan (1) Hypertensive emergency: Plan: Continues on IV labetalol and Nitropaste. Improved. Continue management per ICU. (2) Acute HFrEF (heart failure with reduced ejection fraction): Plan: Progressive edema over past 2 months extending from feet up to chest. Also with cough, dyspnea on exertion, orthopnea, PND pro-BNP 17,147 Cardiac enzymes trended and no concerning acceleration. No ischemic changes on EKG that are acute and concerning. Continue Lasix as renal function allows. Strict I&Os with barrientos in place, daily weights, low sodium diet, supplemental O2 as needed Guideline directed medical therapy per cardiology. (3) Elevated troponin: Plan: Likely related to demand ischemia. No further work-up at this time. No immediate concerns for ACS. (4) Alcohol use: Plan: History of heavy alcohol use, has decreased to 2 beers 3x/week AWSS protocol, IV ativan as needed (5) Cirrhosis: Plan: Seen on imaging. Not biopsy-proven. Outpatient work-up to follow discharge. (6) Proteinuria: Plan: New finding this admission. Renal ultrasound requested. Urine studies inclu ding 24-hour urine collection for protein, catecholamines and metanephrines as above. Secondary hypertension work-up as above. Continue to monitor. (7) DVT prophylaxis: Plan: Heparin Full code Disposition-to home when medically cleared, currently remains in ICU DO Sofia Rader Hospitalist Admission and Anticipated Discharge Date Admission Date: March 02, 2021 Subjective 45-year-old man admitted for hypertensive emergency and edema. Proteinuria found on work-up echocardiogram reveals small pericardial effusion without tamponade with severe global LV dysfunction and an ejection fraction of 25 to 29%. Echo pattern may be consistent with an infiltrative cardiomyopathy such as amyloid. Cirrhotic liver morphology seen on imaging. Patient denies any shortness of breath, chest pain, nausea, vomiting. No GI issues. Overall feels about the same as yesterday. at bedside and was updated on plan. Review of Systems Review of Systems: All systems reviewed negative except as indicated above. Physical Exam Physical Exam: CONSTITUTIONAL: WNWD, vitals as above, generally well- appearing, NAD EYES: normal conjunctivae, no scleral icterus ENT: external ear and nose normal, MMM NECK: trachea midline, RESPIRATORY: clear to auscultation bilaterally, no crackles, rales or wheezes, normal respiratory effort CARDIOVASCULAR: regular rate and rhythm, S1 and 2 heard without murmurs, gallops or rubs, no JVD, 2+ peripheral edema to lower abdomen from bilateral lower extremities. CHEST: inspection of chest was normal GASTROINTESTINAL: soft, nontender, no guarding, ND MUSCULOSKELETAL: strength 5/5 throughout, head is normocephalic and atraumatic SKIN: warm and dry, NEUROLOGIC: CN 2-12 grossly intact, no sensory deficit, normal cognition, normal speech, no tremor, no gross focal deficits. PSYCHIATRIC: alert cooperative and oriented to person, place and time. Results & Data Results & Data ([facility]) Vital Signs (Past 12 Hours) Vital Signs Temp Pulse Pulse Resp BP BP Pulse Ox 03/03/21 15:15 82 26 H 161/111 H 95 03/03/21 15:00 73 14 179/127 H 96 03/03/21 14:45 67 23 187/127 H 92 03/03/21 14:30 90 9 L 177/125 H 93 03/03/21 14:15 76 21 158/102 H 92 03/03/21 14:00 77 20 159/99 H 92 03/03/21 13:45 88 24 176/100 H 93 03/03/21 13:30 76 23 178/115 H 91 03/03/21 13:15 69 19 183/109 H 89 L 03/03/21 13:00 72 20 177/110 H 91 03/03/21 12:45 94 H 22 180/103 H 93 03/03/21 12:30 103 H 26 H 180/135 H 86 L 03/03/21 12:15 75 26 H 175/116 H 89 L 03/03/21 12:00 93 H 18 192/119 H 96 03/03/21 11:45 93 H 7 L 165/126 H 96 03/03/21 11:31 90 21 169/125 H 97 03/03/21 11:30 93 H 33 H 92 03/03/21 11:25 80 18 173/121 H 95 03/03/21 11:23 92 H 24 179/118 H 95 03/03/21 11:15 85 16 181/127 H 85 L 03/03/21 11:00 93 H 10 L 167/109 H 96 03/03/21 10:45 74 12 175/114 H 94 03/03/21 10:30 95 H 13 197/139 H 87 L 03/03/21 10:19 97 H 21 192/124 H 91 03/03/21 10:00 95 H 29 H 03/03/21 09:30 96 H 16 03/03/21 09:15 93 H 30 H 180/129 H 97 03/03/21 09:00 90 20 183/118 H 97 03/03/21 08:45 96 H 21 177/122 H 99 03/03/21 08:30 36.9 C 91 H 15 185/107 H 96 03/03/21 08:15 88 15 180/101 H 96 03/03/21 08:00 91 H 178/116 H 95 03/03/21 07:45 85 173/119 H 94 03/03/21 07:31 166/106 H 03/03/21 07:15 133/86 03/03/21 07:00 146/90 H 03/03/21 06:21 79 22 170/103 H 92 03/03/21 06:05 86 22 193/112 H 92 03/03/21 04:46 94 H 22 181/104 H 98 03/03/21 04:30 197/126 H 03/03/21 04:00 101 H 20 178/109 H 92 Laboratory Results Short CBC 03/02/21 03/03/21 Range/Units 16:10 04:20 WBC 6.06 6.51 (4.8-10.8) K/uL Hgb 13.3 L 12.2 L (14.0-18.0) g/dL Hct 40.8 L 37.9 L (42-52) % Plt Count 204 210 (130-400) K/uL BMP 03/02/21 03/03/21 03/03/21 16:10 04:20 13:41 Sodium 138 144 139 Potassium 3.5 3.3 L 3.5 Chloride 103 108 H 106 Carbon Dioxide 30 30 28 BUN 22 H 24 H 27 H Creatinine 1.23 1.41 H 1.36 Glucose 124 H 147 H 177 H Calcium 9.0 8.7 8.6 Cardiac Enzymes 03/02/21 03/02/21 Range/Units 16:10 22:34 Troponin I 0.059 H* 0.037 (0-0.045) ng/ml Liver Function 03/02/21 Range/Units 16:10 Total Bilirubin 0.9 (0.2-1) mg/dl AST 29 (15-37) U/L ALT 41 (12-78) Alkaline Phosphatase 81 (45-117) U/L Albumin 3.4 (3.4-5.0) gm/dl Urine 03/02/21 Range/Units 18:40 Urine Color Dark Yellow Urine Appearance Clear (Clear) Urine pH 5.0 (4.5-7.5) Ur Specific [place] 1.020 (1.000-1.030) Urine Protein 3+ H (Negative) Urine Glucose (UA) Negative (Negative) Diagnostic Findings Chest X-Ray 03/03/21 07:00 XR chest 1V portable CLINICAL HISTORY: Resp failure TECHNIQUE: Single frontal radiograph of the chest was obtained. Comparison: Comparison is made to chest 2 views 03/02/2021 FINDINGS: No lines and tubes are seen. Cardiomegaly is noted. Prominence and cephalization of the vasculature is seen. There is a left retrocardiac opacity. No evidence of pleural effusion or pneumothorax. IMPRESSION: Mild pulmonary edema. A left retrocardiac opacity may reflect atelectasis, pneumonia, and/or aspiration. ACT 112: Negative or not required by law. Electronically signed by: Bhavesh Bourgeois M.D. 03/03/2021 7:31 AM Renal Ultrasound 03/03/21 09:28 ULTRASOUND KIDNEYS AND BLADDER CLINICAL HISTORY: Hypertension. COMPARISON STUDY: No priors. TECHNIQUE: Real-time, grayscale, and color flow sonography of the kidneys and bladder is performed. Images are reviewed in the transverse and longitudinal planes. FINDINGS: Kidneys: The kidneys are normal in size and echotexture. The right kidney measures 11.9 cm length and the left kidney measures 11.0 cm in length. There is no hydronephrosis. No shadowing renal calculi are identified. There is no sonographic evidence of contour deforming renal mass lesion. No perinephric fluid is identified. Bladder: The bladder is decompressed around a Barrientos catheter and cannot be assessed. Ureteral jets could not be evaluated. Upper abdomen: Survey images of the liver show cirrhotic morphology. The spleen is enlarged measuring 15 cm in length. There is trace perisplenic ascites. IMPRESSION: 1. The kidneys are normal in size and without hydronephrosis. 2. The bladder was decompressed and could not be assessed. 3. Cirrhotic liver morphology and splenomegaly. 4. There is trace perisplenic ascites. ACT 112: Negative or not required by law. Electronically signed by: Parrish Edmonds M.D. 03/03/2021 10:34 AM Medications Administered Current Inpatient Medications Acetaminophen (Acetaminophen 325 Mg Tab) 650 mg PO Q4H PRN PRN Reason: Pain or Fever Stop: 04/01/21 19:31 Carvedilol (Carvedilol 3.125 Mg Tab) 3.125 mg PO BID [facility] Stop: 04/02/21 09:29 Last Admin: 03/03/21 11:29 Dose: 3.125 mg Documented by: Furosemide (Furosemide 40 Mg/4 Ml Vial) 40 mg IV DAILY [facility] Stop: 04/03/21 08:59 Heparin Sodium (Porcine) (Heparin Sod 5,000 Unit/0.5 Ml Vial) 5,000 units SQ Q8 SHONDA Stop: 04/01/21 21:59 Last Admin: 03/03/21 14:42 Dose: 5,000 units Documented by: Lorazepam (Ativan) 1 mg in 2 mls @ 2 mls/min IV ONE PRN; Protocol PRN Reason: EtoH Withdrawal AWSS 6-10 Stop: 04/01/21 21:33 Labetalol HCl (Labetalol Hcl Iv 5 Mg/Ml 20ml) 10 mg IV Q2H PRN PRN Reason: Hypertension Stop: 04/01/21 22:01 Last Admin: 03/03/21 10:35 Dose: 10 mg Documented by: Miscellaneous (Icu Protocol For Hyperglycemia) 1 ea N/A PRN PRN; Protocol PRN Reason: Hyperglycemia Protocol Stop: 03/04/21 19:31 Ondansetron HCl (Ondansetron Inj 2 Mg/Ml 2 Ml Vial) 4 mg IV Q6H PRN PRN Reason: Nausea Stop: 04/01/21 19:31 Polyethylene Glycol (Polyethylene (Miralax) 17 Gm Pack) 17 gm PO DAILY PRN PRN Reason: Constipation Stop: 04/01/21 19:31
--- NOTE | 2021-03-03 15:42 | Communication Note ---
Date of Service: March 03, 2021 Furosemide dose held this am, due to creatinine having trended up. Creatine stable/ mildly improved upon repeat this afternoon at 1.36. Will transition to bumex, first dose 0.5 mg IV x 1 now. Repeat BMP in am. If renal function stable, will likely add spironolactone after 24 hr urine samples collected.
[2021-03-03] MEDS ORDERED: BUMETANIDE 0.5 MG in SYRINGE 0 ML IV ONE (16:30)
[2021-03-03] MEDS ORDERED: carvediloL 6.25 MG TAB PO SCH (21:00)
[2021-03-03] MEDS ORDERED: STAT IV Infusion **Titration per Protocol STA (21:33)
[2021-03-03] MEDS ORDERED: NITROGLYCERIN/D5W 100MCG/ML 250 ML IV SCH (21:45)
[2021-03-04] MEDS: LABETALOL HCL IV 5 MG/ML 20ML IV PRN (02:55)
[2021-03-04 04:48] LABS: Hematocrit (blood only) 35.1 % (42-52); Hemoglobin 11.3 g/dL (14.0-18.0); Mean Corpuscular Hgb Conc 32.2 g/dL (32-36); Mean Platelet Volume 10.5 fL (7.4-10.4); Platelet Count 185 K/uL (130-400); RDW Standard Deviation 45.6 fL (36.4-46.3); White Blood Count 5.86 K/uL (4.8-10.8)
[2021-03-04 05:05] LABS: BUN Creatinine Ratio 18.2 (10-20); Calcium 8.5 mg/dl (8.5-10.1); Est GFR (African American) 73.8 ml/min; Est GFR (Non-African American) 63.7 ml/min; Magnesium 2.2 mg/dl (1.8-2.4); Potassium 3.9 mmol/L (3.5-5.1)
[2021-03-04 05:08] LABS: Phosphorus 3.8 mg/dl (2.5-4.9)
[2021-03-04] MEDS ORDERED: POTASSIUM CHLORIDE CRTAB 20 MEQ TABCR PO STA (06:18)
[2021-03-04] MEDS: HEPARIN SOD 5,000 UNIT/0.5 ML VIAL SQ SCH ×3 (06:39→20:56)
--- NOTE | 2021-03-04 07:53 | Critical Care Progress Note ---
Date of Service March 04, 2021 Assessment & Plan (1) Acute HFrEF (heart failure with reduced ejection fraction): (2) Hypertensive emergency: (3) Elevated troponin: (4) Alcohol use: (5) Acute decompensated heart failure: Plan: Impression: 45-year-old male presents to the ICU with hypertensive emergency requiring nitro drip and decompensated heart failure. Currently undergoing blood pressure control with high parameters and diuresis. Neuro - CAM ICU: Negative Patient does have heavy alcohol drinking history He has been cutting down for more than 3 weeks prior to coming to the hospital Monitor for signs of withdrawal Ativan as needed Cardiac - Hypertensive emergencyinitial blood pressure of 221/140 treated with IV labetalol -Mildly elevated troponin, will trend for now. +3 proteins in urine -Cardiology on board Decompensated heart failureno known history of heart failure but does have family history - BNP 17,000 on presentation -Mildly elevated troponin (trending), no ST changes on EKG -2D echo shows ejection fraction 25% -Continuous monitoring on telemetry There is possibility of pheochromocytoma. Metanephrines for the urine 24-hour urine has been ordered by cardiology. I will order serum metanephrines Cardiology also thinking for possible amyloidosis. Follow-up serum when urine electrophoresis. Respiratory - No history of pulmonary disease. History of tobacco use is smokeless. Patient does have dyspnea with exertion, expect to improve with diuresis. He is currently maintaining oxygen saturation on room air without respiratory distress. Continuous monitoring pulse ox BLE Doppler negative for DVT --Left-sided pleural effusion Likely from underlying CHF Continue with diuresis --Probable central sleep apnea Patient does get apneic when he is sleeping He will benefit from outpatient sleep study BiPAP nightly GI - Low-sodium diet RENAL/LYTES - -- ANGELES Monitor BUN/creatinine Avoid nephrotoxic medications Strict ins and outs - Strict I's and O's ENDO - No history of diabetes or thyroid disease. TSH within normal limits ICU hyperglycemic protocol HEME - H&H stable, monitor routine CBCs ID - No indication for infectious process at this time --Prophylaxis VTE: Heparin GI: None Lines: Peripheral Diet: Cardiorenal Plan: In/out: -342, urine output 910 Plan for the patient had to be restarted on nitro drip later last night Patient has been started on Entresto, Coreg has been increased to 6.25 mg twice daily. And spironolactone has been added Patient given 1 mg of Bumex today. We will see what the In-N-Out is at the end of the shift He still has no negative balance we will give another milligram of Bumex Goal is to take the patient off nitroglycerin drip Patient has past the first 24 hours. Goal SBP 150-160. Plan was discussed with Dr. Weller I have personally spent 35 minutes of critical care time in the direct management of this patient. This is a life/limb threatening event. This includes time spent evaluating patient, direct bedside care, chart review, placing orders, interpretation of diagnostic studies, discussion with consultants, patient, and family members, as well as other required patient management activities. This time is exclusive of all separately billable procedures, and teaching time and separate from and in addition to any other critical care service time. Please note the above document was generated using voice recognition software. It may contain grammatical, syntax or spelling errors. Admission and Anticipated Discharge Date Admission Date: March 02, 2021 Subjective Patient seen and examined at bedside. No acute distress, no delusions overnight Patient did get a Ativan dose overnight for anxiety. He says is feeling better. Denies any headache, no nausea or vomiting He is lethargic since the time he came into the hospital Denies any blurry vision. His blood pressure at bedside for systolic 156 on nitro drip. He has not gotten any p.o. medications yet Review of Systems Review of Systems: All systems reviewed & are unremarkable except as noted in Subjective Physical Exam Physical Exam: Constitutional: No acute distress HEENT: EOMI, PERRLA Respiratory system: Decreased antibiotic, no wheeze, rhonchi, positive crackles bilateral lower lobes CVS: S1-S2 positive, no murmurs or gallops Abdomen: Soft, nontender, nondistended, positive bowel sounds x4, obese Extremities: +2 pulses bilaterally radialis/ dorsalis pedis, no cyanosis, +2 pitting edema bilateral lower extremity, anasarca Neuro: Awake alert oriented x3 Psych: Normal mood and affect G/U: Positive Dias Skin: no rashes, warm and dry Lymphatic: no cervical or axillary lymphadenopathy Results & Data Results & Data ([facility]) Vital Signs (Past 12 Hours) Vital Signs Pulse Resp BP Pulse Ox 03/04/21 06:01 96 H 34 H 196/113 H 98 03/04/21 06:00 97 H 24 100 03/04/21 05:30 76 22 150/75 H 100 03/04/21 05:00 83 17 160/106 H 96 03/04/21 04:30 89 24 183/104 H 95 03/04/21 04:00 98 H 28 H 157/115 H 98 03/04/21 03:30 76 19 157/103 H 98 03/04/21 03:00 82 21 156/95 H 99 03/04/21 02:30 95 H 24 180/115 H 100 03/04/21 02:00 91 H 21 179/113 H 100 03/04/21 01:38 98 H 35 H 170/120 H 97 03/04/21 01:30 95 H 13 183/124 H 99 03/04/21 01:00 81 20 175/116 H 99 03/04/21 00:30 82 29 H 146/102 H 98 03/04/21 00:00 73 13 137/84 93 03/03/21 23:37 97 H 25 H 208/128 H 90 03/03/21 23:30 90 21 202/117 H 88 L 03/03/21 23:00 89 21 93 03/03/21 22:30 97 H 21 193/143 H 87 L 03/03/21 22:00 80 22 168/104 H 97 03/03/21 21:30 94 H 25 H 184/132 H 99 03/03/21 21:00 91 H 20 194/115 H 100 03/03/21 20:35 83 22 175/121 H 95 03/03/21 20:31 88 19 210/124 H 98 03/03/21 20:30 95 H 34 H 99 03/03/21 20:00 80 16 191/139 H 93 03/04/21 04:23 03/04/21 04:23 Laboratory Results 03/04/21 04:23 03/04/21 04:23 Coding Level of Care Code Critical Care 1st 30-74 mins Diagnoses Acute HFrEF (heart failure with reduced ejection fraction) I50.21 Hypertensive emergency I16.1 Elevated troponin R77.8 Alcohol use Z72.89 Acute decompensated heart failure I50.9 Time Spent (min) 35
[2021-03-04] MEDS ORDERED: carvediloL 12.5 MG TAB PO SCH (09:00)
[2021-03-04] MEDS ORDERED: FUROSEMIDE 40 MG/4 ML VIAL IV SCH ×2 (09:00)
[2021-03-04] MEDS ORDERED: BUMETANIDE 1 MG in SYRINGE 0 ML IV ONE (09:15)
[2021-03-04] MEDS ORDERED: carvediloL 6.25 MG TAB PO SCH (09:15)
--- NOTE | 2021-03-04 09:21 | Cardiology Progress Note ---
Date of Service March 04, 2021 Assessment & Plan (1) Hypertensive emergency: (2) Acute HFrEF (heart failure with reduced ejection fraction): (3) Proteinuria: Plan: Diagnostics: -Bedside Echocardiogram performed 03/03/21 reveled severe concentric LVH, small circumferential pericardial effusion without tamponade, severe global LV systolic dysfunction, LVEF 25-29%. Abnormal Global Longitudinal strain pattern with sparing of apical segments which is suggestive of infiltrative cardiomyopathy / amyloid. Renal US reveals normal kidney size , no hydronephrosis. Cirrhotic liver morphology (past h/o of ETOH use, or perhaps related to cardiomyopathy with hepatic congestion). Total cholesterol, TG, LDL controlled , LDL 62 mg/dl. Patient has been found to have 3+ protein on urinalysis. 24 hr urine collection to finish 03/04/21 at 9:10 am. -24-hour urine collection for protein, urine catecholamines, urine metanephrines. Serum aldosterone and renin levels have been ordered. Serum electrophoresis, protein electrophoresis have been requested. Therapeutics: Wean nitroglycerin IV as tolerated, Goal SBP in 160s to 170s today. Proceed with bumex 1 mg IV x 1. Had 1.8 L urine output 03/03. Coreg 6.25 mg BID Add spironolactone 12.5 mg daily, Entresto BID (will need to work on prior auth to obtain this as outpatient) DC Dias catheter at 12 noon today, to help mobilize patient, limit risk of infection, VTE. Discussed with patient's nurse at bedside. Agree with SQ heparin for DVT prophylaxis. Admission and Anticipated Discharge Date Admission Date: March 02, 2021 Subjective Mr Holliday is seen in cardiology follow up today of edema, hypertension, newly diagnosed cardiomyopathy. No complaints. Sleeping comfortably. Dias catheter remains in place draining clear yellow urine. BP readings elevated last evening and overnight, promptimg severe doses of IV labetolol, and he is back on at nitroglycerin infusion at 15 mcg/m. Telemetry reveals SR in the 80s to 90s. Review of Systems Review of Systems: All systems reviewed & are unremarkable except as noted in HPI & below Cardiovascular: Additional Comments: LE edema Physical Exam Physical Exam: HR 80 bpm, SR, BP taken personally at time of assessment at 9 am, 171/104 mm Hg (improved from 196/113 at 6 am) Constitutional: WD/WN, vitals as above Respiratory: Auscultation: + diminished lung sounds (decreased BS bilaterally at the bases) Cardiovascular: Rate/Rhythm: regular rhythm Heart Sounds: no murmur Vessels: + JVD Extremities: + edema (2+ BL LE edema) Genitourinary: Dias catheter draining clear yellow urine Results & Data ([facility]) Vital Signs (Past 12 Hours) Vital Signs Pulse Resp BP Pulse Ox 03/04/21 06:01 96 H 34 H 196/113 H 98 03/04/21 06:00 97 H 24 100 03/04/21 05:30 76 22 150/75 H 100 03/04/21 05:00 83 17 160/106 H 96 03/04/21 04:30 89 24 183/104 H 95 03/04/21 04:00 98 H 28 H 157/115 H 98 03/04/21 03:30 76 19 157/103 H 98 03/04/21 03:00 82 21 156/95 H 99 03/04/21 02:30 95 H 24 180/115 H 100 03/04/21 02:00 91 H 21 179/113 H 100 03/04/21 01:38 98 H 35 H 170/120 H 97 03/04/21 01:30 95 H 13 183/124 H 99 03/04/21 01:00 81 20 175/116 H 99 03/04/21 00:30 82 29 H 146/102 H 98 03/04/21 00:00 73 13 137/84 93 03/03/21 23:37 97 H 25 H 208/128 H 90 03/03/21 23:30 90 21 202/117 H 88 L 03/03/21 23:00 89 21 93 03/03/21 22:30 97 H 21 193/143 H 87 L 03/03/21 22:00 80 22 168/104 H 97 03/03/21 21:30 94 H 25 H 184/132 H 99 Laboratory Results CBC 03/04/21 Range/Units 04:23 WBC 5.86 (4.8-10.8) K/uL RBC 3.90 L (4.7-6.1) M/uL Hgb 11.3 L (14.0-18.0) g/dL Hct 35.1 L (42-52) % Plt Count 185 (130-400) K/uL Comprehensive Metabolic Panel 03/03/21 03/04/21 Range/Units 13:41 04:23 Sodium 139 140 (136-145) mmol/L Potassium 3.5 3.9 (3.5-5.1) mmol/L Chloride 106 107 (98-107) mmol/L Carbon Dioxide 28 27 (21-32) mmol/L BUN 27 H 24 H (7-18) mg/dl Creatinine 1.36 1.33 (0.6-1.4) mg/dl Glucose 177 H 123 H (70-99) mg/dl Calcium 8.6 8.5 (8.5-10.1) mg/dl Intake and Output 03/03/21 03/04/21 03/04/21 22:59 06:59 14:59 Intake Total 443.05 / 567.95 24.9 / 567.95 Output Total 550 / 910 200 / 910 Balance -106.95 / -342.05 -175.1 / -342.05 Intake: IV 3.05 / 27.95 24.9 / 27.95 Nitroglycerin/D5w 100Mcg/ml 250 3.05 / 27.95 24.9 / 27.95 ml @ 15 MCG/MIN 9 mls/hr IV . Q24H [facility] Rx#:[id number] Oral 440 / 540 Output: Urine Amount (Catheter) 550 / 910 200 / 910 Dias/Indwelling 550 / 910 200 / 910 Other: Weight 107.6 kg Weight Measurement Method Built in [facility]
[2021-03-04] MEDS: VALSARTAN/SACUBITRIL 26/24MG TAB PO SCH ×2 (10:12→20:56)
[2021-03-04] MEDS: SPIRONOLACTONE 12.5 MG TAB PO SCH (10:12)
[2021-03-04 10:24] LABS: Total Protein 24 Hour Urine 419.1 mg/24 Hr (0-149.1); Urine Total Protein 49.3 mg/dl
--- NOTE | 2021-03-04 12:52 | Hospitalist Progress Note ---
Date of Service March 04, 2021 Assessment & Plan (1) Hypertensive emergency: Plan: Started on nitroglycerin drip overnight for management of elevated blood pressure. Started on guideline directed therapy with Entresto 26/24 1 tab p.o. twice daily and Aldactone 12.5 mg p.o. daily and carvedilol 6.25 mg p.o. twice daily. Secondary work-up ongoing including rule out pheochromocytoma and Hyperaldosteronism. Renal us revealed normal-sized kidneys without hydroneph rosis. Continue labetalol as needed. Continue ICU monitoring. (2) Acute HFrEF (heart failure with reduced ejection fraction): Plan: Progressive edema over past 2 months extending from feet up to chest. Also with cough, dyspnea on exertion, orthopnea, PND pro-BNP 17,147 Cardiac enzymes trended and no concerning acceleration. No ischemic changes on EKG that are acute and concerning. Continue Lasix as renal function allows per Cardiology. Strict I&Os with barrientos in place, daily weights, low sodium diet, supplemental O2 as needed Guideline directed medical therapy per cardiology. (3) Elevated troponin: Plan: Likely related to demand ischemia. No further work-up at this time. No immediate concerns for ACS. (4) Alcohol use: Plan: History of heavy alcohol use, has decreased to 2 beers 3x/week AWSS protocol, IV ativan as needed (5) Cirrhosis: Plan: Seen on imaging. Not biopsy-proven. Outpatient work-up to follow discharge. (6) Proteinuria: Plan: New finding this admission. Renal ultrasound requested. Urine studies including 24-hour urine collection for protein, catecholamines and metanephrines as above. Secondary hypertension work-up as above. Continue to monitor. (7) DVT prophylaxis: Plan: Heparin Full code Disposition-to home when medically cleared, currently remains in [facility] and Anticipated Discharge Date Admission Date: March 02, 2021 Subjective 45-year-old man admitted for hypertensive emergency and edema. Placed back on nitroglycerin drip for management of blood pressure overnight. Patient denies any shortness of breath, chest pain, nausea, vomiting. No GI issues. Overall feels improved. Notably patient was very somnolent and had just woken up from sleep, falling asleep frequently but oriented during exam. Review of Systems Review of Systems: All systems reviewed negative except as indicated above. Physical Exam Physical Exam: CONSTITUTIONAL: WNWD, vitals as above, generally well- appearing, somnolent EYES: normal conjunctivae, no scleral icterus ENT: external ear and nose normal, MMM NECK: trachea midline, RESPIRATORY: clear to auscultation bilaterally, no crackles, rales or wheezes, normal respiratory effort CARDIOVASCULAR: regular rate and rhythm, S1 and 2 heard without murmurs, gallops or rubs, no JVD, 2+ peripheral edema to lower abdomen from bilateral lower extremities-appears improved CHEST: inspection of chest was normal GASTROINTESTINAL: soft, nontender, no guarding, ND MUSCULOSKELETAL: strength 5/5 throughout, head is normocephalic and atraumatic SKIN: warm and dry, NEUROLOGIC: CN 2-12 grossly intact, no sensory deficit, normal cognition, radha l speech, no tremor, no gross focal deficits. PSYCHIATRIC: alert cooperative and oriented to person, place and time. Results & Data Results & Data ([facility]) Vital Signs (Past 12 Hours) Vital Signs Temp Pulse Resp BP Pulse Ox 03/04/21 10:30 79 20 146/92 H 97 03/04/21 10:00 93 H 23 178/117 H 99 03/04/21 09:30 71 21 184/118 H 95 03/04/21 09:00 36.6 C 88 23 172/109 H 99 03/04/21 08:58 91 H 22 171/104 H 99 03/04/21 08:52 93 H 24 156/91 H 100 03/04/21 08:30 74 15 191/111 H 100 03/04/21 08:00 95 H 25 H 178/99 H 97 03/04/21 07:31 97 H 27 H 198/129 H 91 03/04/21 07:30 100 H 16 95 03/04/21 07:00 80 21 156/95 H 100 03/04/21 06:30 75 22 181/106 H 100 03/04/21 06:01 96 H 34 H 196/113 H 98 03/04/21 06:00 97 H 24 100 03/04/21 05:30 76 22 150/75 H 100 03/04/21 05:00 83 17 160/106 H 96 03/04/21 04:30 89 24 183/104 H 95 03/04/21 04:00 98 H 28 H 157/115 H 98 03/04/21 03:30 76 19 157/103 H 98 03/04/21 03:00 82 21 156/95 H 99 03/04/21 02:30 95 H 24 180/115 H 100 03/04/21 02:00 91 H 21 179/113 H 100 03/04/21 01:38 98 H 35 H 170/120 H 97 03/04/21 01:30 95 H 13 183/124 H 99 03/04/21 01:00 81 20 175/116 H 99 Laboratory Results Short CBC 03/04/21 Range/Units 04:23 WBC 5.86 (4.8-10.8) K/uL Hgb 11.3 L (14.0-18.0) g/dL Hct 35.1 L (42-52) % Plt Count 185 (130-400) K/uL BMP 03/03/21 03/04/21 13:41 04:23 Sodium 139 140 Potassium 3.5 3.9 Chloride 106 107 Carbon Dioxide 28 27 BUN 27 H 24 H Creatinine 1.36 1.33 Glucose 177 H 123 H Calcium 8.6 8.5 Medications Administered Current Inpatient Medications Acetaminophen (Acetaminophen 325 Mg Tab) 650 mg PO Q4H PRN PRN Reason: Pain or Fever Stop: 04/01/21 19:31 Carvedilol (Carvedilol 6.25 Mg Tab) 6.25 mg PO BID [facility] Stop: 04/03/21 09:14 Last Admin: 03/04/21 10:12 Dose: 6.25 mg Documented by: Heparin Sodium (Porcine) (Heparin Sod 5,000 Unit/0.5 Ml Vial) 5,000 units SQ Q8 [facility] Stop: 04/01/21 21:59 Last Admin: 03/04/21 06:39 Dose: 5,000 units Documented by: Nitroglycerin/Dextrose (Nitroglycerin/D5w 100 Mcg/Ml) 250 mls @ 6 mls/hr IV .Q24H [facility]ONDA; Protocol Stop: 04/02/21 21:44 Last Titration: 03/04/21 11:07 Dose: 10 mcg/min, 6 mls/hr Documented by: Lorazepam (Ativan) 1 mg in 2 mls @ 2 mls/min IV Q3H PRN PRN Reason: anxiety Stop: 04/03/21 10:19 Labetalol HCl (Labetalol Hcl Iv 5 Mg/Ml 20ml) 10 mg IV Q2H PRN PRN Reason: Hypertension Stop: 04/01/21 22:01 Last Admin: 03/04/21 02:55 Dose: 10 mg Documented by: Miscellaneous (Icu Protocol For Hyperglycemia) 1 ea N/A PRN PRN; Protocol PRN Reason: Hyperglycemia Protocol Stop: 03/04/21 19:31 Ondansetron HCl (Ondansetron Inj 2 Mg/Ml 2 Ml Vial) 4 mg IV Q6H PRN PRN Reason: Nausea Stop: 04/01/21 19:31 Polyethylene Glycol (Polyethylene (Miralax) 17 Gm Pack) 17 gm PO DAILY PRN PRN Reason: Constipation Stop: 04/01/21 19:31 Sacubitril/Valsartan (Valsartan/Sacubitril 26/24mg Tab) 1 tab PO BID [facility] Stop: 04/03/21 09:14 Last Admin: 03/04/21 10:12 Dose: 1 tab Documented by: Spironolactone (Spironolactone 12.5 Mg Tab) 12.5 mg PO DAILY [facility] Stop: 04/03/21 09:14 Last Admin: 03/04/21 10:12 Dose: 12.5 mg Documented by:
[2021-03-04] MEDS ORDERED: carvediloL 6.25 MG TAB PO STA (16:01)
[2021-03-04] MEDS: carvediloL 6.25 MG TAB PO SCH (20:56)
[2021-03-05 05:04] LABS: Hematocrit (blood only) 37.8 % (42-52); Hemoglobin 12.2 g/dL (14.0-18.0); Mean Corpuscular Hemoglobin 29.1 pg (25-34); Mean Corpuscular Hgb Conc 32.3 g/dL (32-36); Mean Corpuscular Volume 90.2 fL (80-100); Mean Platelet Volume 10.2 fL (7.4-10.4); Platelet Count 180 K/uL (130-400); RDW Coefficient of Variation 13.8 % (11.5-14.5); RDW Standard Deviation 45.6 fL (36.4-46.3); Red Blood Count 4.19 M/uL (4.7-6.1); White Blood Count 4.84 K/uL (4.8-10.8)
[2021-03-05 05:20] LABS: Albumin Level 2.4 gm/dl (3.4-5.0); BUN Creatinine Ratio 17.3 (10-20); Calcium 8.3 mg/dl (8.5-10.1); Creatinine Clr Calc Pharmacy 104.4 ml/min; Est GFR (African American) 90.8 ml/min; Est GFR (Non-African American) 78.4 ml/min; Magnesium 2.2 mg/dl (1.8-2.4); Potassium 3.7 mmol/L (3.5-5.1)
[2021-03-05 05:22] LABS: Albumin Globulin Ratio 0.7 (0.9-2); Bilirubin,Total 0.9 mg/dl (0.2-1); Globulin 3.4 gm/dl (2.5-4.0); Total Protein 5.8 gm/dl (6.4-8.2)
[2021-03-05] MEDS: HEPARIN SOD 5,000 UNIT/0.5 ML VIAL SQ SCH ×3 (06:32→21:34)
[2021-03-05] MEDS ORDERED: POTASSIUM CHLORIDE CRTAB 20 MEQ TABCR PO STA (06:35)
--- NOTE | 2021-03-05 08:01 | Critical Care Progress Note ---
Date of Service March 05, 2021 Assessment & Plan (1) Acute HFrEF (heart failure with reduced ejection fraction): (2) Hypertensive emergency: (3) Elevated troponin: (4) Alcohol use: (5) Acute decompensated heart failure: Plan: Impression: 45-year-old male presents to the ICU with hypertensive emergency requiring nitro drip and decompensated heart failure. Currently undergoing blood pressure control with high parameters and diuresis. Neuro - [facility] ICU: Negative Patient does have heavy alcohol drinking history He has been cutting down for more than 3 weeks prior to coming to the hospital Monitor for signs of withdrawal Ativan as needed Cardiac - Hypertensive emergencyinitial blood pressure of 221/140 treated with IV labetalol -Mildly elevated troponin, will trend for now. +3 proteins in urine -Cardiology on board Decompensated heart failureno known history of heart failure but does have family history - BNP 17,000 on presentation -Mildly elevated troponin (trending), no ST changes on EKG -2D echo shows ejection fraction 25% -Continuous monitoring on telemetry There is possibility of pheochromocytoma. Metanephrines for the urine 24-hour urine has been ordered by cardiology. I will order serum metanephrines Cardiology also thinking for possible amyloidosis. Follow-up serum when urine electrophoresis. Respiratory - No history of pulmonary disease. History of tobacco use is smokeless. Patient does have dyspnea with exertion, expect to improve with diuresis. He is currently maintaining oxygen saturation on room air without respiratory distress. Continuous monitoring pulse ox BLE Doppler negative for DVT --Left-sided pleural effusion Likely from underlying CHF Continue with diuresis --Probable central sleep apnea Patient does get apneic when he is sleeping He will benefit from outpatient sleep study BiPAP nightly GI - Low-sodium diet RENAL/LYTES - -- ANGELES Monitor BUN/creatinine Avoid nephrotoxic medications Strict ins and outs - Strict I's and O's ENDO - No history of diabetes or thyroid disease. TSH within normal limits ICU hyperglycemic protocol HEME - H&H stable, monitor routine CBCs ID - No indication for infectious process at this time --Prophylaxis VTE: Heparin GI: None Lines: Peripheral Diet: Cardiorenal Plan: In/out: -1.6 L, urine output 2375 Patient has been off nitro drip since yesterday evening. He did needed an extra dose of Coreg 6.25 around 4 PM yesterday on top of 6.25 mg twice daily Bumetanide 1 mg to be given to the patient now Can target the blood pressure less than 140 systolic now Patient is hemodynamically stable to be downgraded to medical floor Please note the above document was generated using voice recognition software. It may contain grammatical, syntax or spelling errors. Admission and Anticipated Discharge Date Admission Date: March 02, 2021 Subjective Patient seen and examined at bedside. No acute distress, no delusions overnight He has been off nitro drip. Denies any headache, no nausea, no vomiting Good appetite Urinating well Review of Systems Review of Systems: All systems reviewed & are unremarkable except as noted in Subjective Physical Exam Physical Exam: Constitutional: No acute distress HEENT: EOMI, PERRLA Respiratory system: Decreased antibiotic, no wheeze, rhonchi, positive crackles bilateral lower lobes CVS: S1-S2 positive, no murmurs or gallops Abdomen: Soft, nontender, nondistended, positive bowel sounds x4, obese Extremities: +2 pulses bilaterally radialis/ dorsalis pedis, no cyanosis, +2 pitting edema bilateral lower extremity, anasarca Neuro: Awake alert oriented x3 Psych: Normal mood and affect G/U: No Dias Skin: no rashes, warm and dry Lymphatic: no cervical or axillary lymphadenopathy Results & Data Results & Data ([facility]) Vital Signs (Past 12 Hours) Vital Signs Pulse Resp BP Pulse Ox 03/05/21 03:30 78 24 155/82 H 96 03/05/21 03:00 77 23 144/85 H 85 L 03/05/21 02:30 84 25 H 136/75 93 03/05/21 02:00 83 23 133/80 92 03/05/21 01:30 77 24 147/99 H 94 03/05/21 01:00 81 22 152/96 H 95 03/05/21 00:30 87 24 167/99 H 96 03/05/21 00:00 82 20 159/92 H 96 03/04/21 23:30 82 30 H 164/98 H 98 03/04/21 23:00 85 27 H 169/114 H 93 03/04/21 22:30 85 28 H 153/107 H 98 03/04/21 22:00 82 19 152/108 H 97 03/04/21 21:30 86 25 H 177/108 H 95 03/04/21 21:00 84 27 H 177/120 H 97 03/04/21 20:30 83 30 H 161/112 H 96 03/04/21 20:00 85 27 H 166/122 H 89 L Laboratory Results 03/05/21 04:51 03/05/21 04:51 Coding Level of Care Code 22717 Subseq Hosp Care Lvl 3 Diagnoses Acute HFrEF (heart failure with reduced ejection fraction) I50.21 Hypertensive emergency I16.1 Elevated troponin R77.8 Alcohol use Z72.89 Acute decompensated heart failure I50.9
[2021-03-05] MEDS: carvediloL 6.25 MG TAB PO SCH ×2 (08:28→21:33)
[2021-03-05] MEDS: SPIRONOLACTONE 12.5 MG TAB PO SCH (08:28)
[2021-03-05] MEDS: VALSARTAN/SACUBITRIL 26/24MG TAB PO SCH ×2 (08:29→21:33)
[2021-03-05] MEDS ORDERED: BUMETANIDE 1 MG in SYRINGE 0 ML IV ONE (08:30)
--- NOTE | 2021-03-05 10:10 | Cardiology Progress Note ---
Date of Service March 05, 2021 Assessment & Plan (1) Hypertensive emergency: (2) Acute HFrEF (heart failure with reduced ejection fraction): (3) Proteinuria: Plan: Diagnostics: -Bedside Echocardiogram performed 03/03/21 reveled severe concentric LVH, small circumferential pericardial effusion without tamponade, severe global LV systolic dysfunction, LVEF 25-29%. Abnormal Global Longitudinal strain pattern with sparing of apical segments which is suggestive of infiltrative cardiomyopathy / amyloid. Renal US reveals normal kidney size , no hydronephrosis. Cirrhotic liver morphology (past h/o of ETOH use, or perhaps related to cardiomyopathy with hepatic congestion). Total cholesterol, TG, LDL controlled , LDL 62 mg/dl. Patient has been found to have 3+ protein on urinalysis. 24 hr urine collection to finish 03/04/21 at 9:10 am. serum albumin had been normal at 3.4 on admission, with diuretic therapy is now low at 2.4. -24-hour Urine protein= 419.1 milligrams - urine catecholamines, urine metanephrines pending Serum aldosterone and renin levels have been ordered. Serum electrophoresis, protein electrophoresis have been requested. Therapeutics: 2 liters of urine output noted yesterday, creatinine actually improved with blood pressure control, diuretic administration. Increase Bumex to 1 milligram IV twice daily Supplement potassium. Coreg 6.25 mg BID Increase Spironolactone to 25 mg daily Entresto BID ( need to work on look and options with regards to helping the patient for this medication as he is uninsured). Transition to telemetry status. SQ heparin for DVT prophylaxis. Will patient's permission, I called and spoke to the patient's spouse, Sharyn, by phone. He has a history of past heavy alcohol use, up to a 12 pack of beer per day up until a few weeks ago. 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 He used cocaine for about a year, but ceased since 2018 or 2019. He has been having daily headaches for months. Sharyn applied for medical assistance on his behalf on 03/04/21. Admission and Anticipated Discharge Date Admission Date: March 02, 2021 Subjective Mr Holliday Is seen in ongoing cardiology follow-up of his chief complaint of edema, shortness of breath, findings of hypertension, presumed nonischemic cardiomyopathy. He remains in the intensive care unit, however I am optimistic that we will be able to downgrade him to telemetry status today. As previously noted, he had been placed back on IV nitroglycerin due to recurrent hypert ension, this was ultimately titrated off as of 2:30 p.m. on 03/04/2021, and his blood pressures have been trending toward significant improvement on oral medications, most recent measurement at 8:44 a.m. this morning was 152/98, much improved considering his presenting blood pressure was greater than 200/100 millimeters Hg. He has no significant subjective complaint this morning. Stating that he just woke up. Still has significant lower extremity edema. Dias catheter discontinued 03/04/2021. Telemetry reveals sinus rhythm in the 80s to 90s. Review of Systems Cardiovascular: Additional Comments: LE edema Physical Exam Physical Exam: Temp Pulse Resp BP Pulse Ox 36.6 C 79 18 152/98 H 96 03/04/21 09:00 03/05/21 08:44 03/05/21 07:31 03/05/21 08:30 03/05/21 03:30 Constitutional: WD/WN, vitals as above Neck: trachea midline, no thyromegaly Respiratory: Auscultation: + diminished lung sounds (decreased BS bilaterally at the bases) Cardiovascular: Rate/Rhythm: regular rhythm Heart Sounds: no murmur Vessels: + JVD Extremities: + edema (2+ BL LE edema) Gastrointestinal (Abdomen): normal bowel sounds, soft, nontender, no hepatosplenomegaly Neurologic: PERRL, EOMI, accommodation nl, no face palsy, no dysarthria Genitourinary: Dias catheter removed 03/04/2021, voiding spontaneously Results & Data ([facility]) Vital Signs (Past 12 Hours) Vital Signs Pulse Resp BP Pulse Ox 03/05/21 08:44 79 03/05/21 08:30 86 152/98 H 03/05/21 08:00 87 149/88 H 03/05/21 07:31 84 18 144/80 H 03/05/21 07:01 79 18 144/80 H 03/05/21 03:30 78 24 155/82 H 96 03/05/21 03:00 77 23 144/85 H 85 L 03/05/21 02:30 84 25 H 136/75 93 03/05/21 02:00 83 23 133/80 92 03/05/21 01:30 77 24 147/99 H 94 03/05/21 01:00 81 22 152/96 H 95 03/05/21 00:30 87 24 167/99 H 96 03/05/21 00:00 82 20 159/92 H 96 03/04/21 23:30 82 30 H 164/98 H 98 03/04/21 23:00 85 27 H 169/114 H 93 03/04/21 22:30 85 28 H 153/107 H 98 Laboratory Results Cardiac Enzymes 03/05/21 Range/Units 04:51 AST 12 L (15-37) U/L CBC 03/05/21 Range/Units 04:51 WBC 4.84 (4.8-10.8) K/uL RBC 4.19 L (4.7-6.1) M/uL Hgb 12.2 L (14.0-18.0) g/dL Hct 37.8 L (42-52) % Plt Count 180 (130-400) K/uL Comprehensive Metabolic Panel 03/05/21 Range/Units 04:51 Sodium 140 (136-145) mmol/L Potassium 3.7 (3.5-5.1) mmol/L Chloride 106 (98-107) mmol/L Carbon Dioxide 30 (21-32) mmol/L BUN 19 H (7-18) mg/dl Creatinine 1.12 (0.6-1.4) mg/dl Glucose 106 H (70-99) mg/dl Calcium 8.3 L (8.5-10.1) mg/dl AST 12 L (15-37) U/L ALT 20 (12-78) Alkaline Phosphatase 59 (45-117) U/L Total Protein 5.8 L (6.4-8.2) gm/dl Albumin 2.4 L (3.4-5.0) gm/dl Intake and Output 03/04/21 03/05/21 03/05/21 22:59 06:59 14:59 Intake Total 0 / 0 Output Total 600 / 2375 425 / 2375 Balance -600 / -1606.25 -425 / -1606.25 0 / 0 Intake: IV 0 / 0 Nitroglycerin/D5w 100Mcg/ml 250 0 / 0 ml @ 0 MCG/MIN IV .Q0M [facility]ON[facility] Rx# :[id number] Oral 0 / 0 Output: Urine 600 / 600 Urine Amount (Catheter) 1774 Dias/Indwelling 1774 Other: Weight 107.9 kg Weight Measurement Method Built in [facility]
--- NOTE | 2021-03-05 10:17 | Hospitalist Progress Note ---
Date of Service March 05, 2021 Assessment & Plan (1) Hypertensive emergency: Plan: Continues on guideline directed therapy with Entresto 26/24 1 tab p.o. twice daily and Aldactone 12.5 mg p.o. daily and carvedilol 6.25 mg p.o. twice daily. Secondary work-up ongoing including rule out pheochromocytoma and Hyperaldosteronism. Renal us revealed normal-sized kidneys without hydronephrosis. As he is now off the nitro drip and BP is more controlled at 152/98, will transfer to PCU for ongoing care. Continues on Bumex intermittently. (2) Acute HFrEF (heart failure with reduced ejection fraction): Plan: Progressive edema over past 2 months extending from feet up to chest. Also with cough, dyspnea on exertion, orthopnea, PND pro-BNP 17,147 Cardiac enzymes trended and no concerning acceleration. No ischemic changes on EKG that are acute and concerning. Continue Bumex as renal function allows per Cardiology. Strict I&Os with barrientos in place, daily weights, low sodium diet, supplemental O2 as needed Guideline directed medical therapy per cardiology. Patient doesn't have medical insurance, looking into applying for MA. Also there are concerns for possibly infiltrative cardiomyopathy on the echocardiogram--cardiology following this. (3) Elevated troponin: Plan: Likely related to demand ischemia. No further work-up at this time. No immediate concerns for ACS. (4) Alcohol use: Plan: History of heavy alcohol use, has decreased to 2 beers 3x/week AWSS protocol, IV ativan as needed (5) Cirrhosis: Plan: Seen on imaging. Not biopsy-proven. Outpatient work-up to follow discharge. (6) Proteinuria: Plan: New finding this admission. Renal ultrasound is normal. Nonnephrotic range proteinuria on the 24 hour collection. Urine studies still pending for catecholamines and metanephrines as above. Secondary hypertension work-up as above. Continue to monitor. (7) DVT prophylaxis: Plan: Heparin Full code Disposition-to home when medically cleared, transfer to PCU. PT/OT to see him. Laly De Luna DO [facility] Admission and Anticipated Discharge Date Admission Date: March 02, 2021 Subjective 45-year-old man admitted for hypertensive emergency and edema, found to have acute systolic heart failure. Patient denies any shortness of breath, chest pain, nausea, vomiting. No GI issues. Overall states he doesn't know how he feels because he just woke up. Reluctantly compliant with exam. Mentating clearly. Review of Systems Review of Systems: All systems reviewed negative except as indicated above. Physical Exam Physical Exam: CONSTITUTIONAL: WNWD, vitals as above, generally well- appearing, appears fatigued-just woke up. EYES: normal conjunctivae, no scleral icterus ENT: external ear and nose normal, MMM NECK: trachea midline, RESPIRATORY: clear to auscultation bilaterally, no crackles, rales or wheezes, normal respiratory effort CARDIOVASCULAR: regular rate and rhythm, S1 and 2 heard without murmurs, gallops or rubs, no JVD, trace peripheral edema to bilateral lower extremities, appears improved. CHEST: inspection of chest was normal GASTROINTESTINAL: soft, nontender, no guarding, ND MUSCULOSKELETAL: strength 5/5 throughout, head is normocephalic and atraumatic SKIN: warm and dry, NEUROLOGIC: CN 2-12 grossly intact, no sensory deficit, normal cognition, normal speech, no tremor, no gross focal deficits. PSYCHIATRIC: alert cooperative and oriented to person, place and time. Results & Data Results & Data ([facility]) Vital Signs (Past 12 Hours) Vital Signs Pulse Resp BP Pulse Ox 03/05/21 08:44 79 03/05/21 08:30 86 152/98 H 03/05/21 08:00 87 149/88 H 03/05/21 07:31 84 18 144/80 H 03/05/21 07:01 79 18 144/80 H 03/05/21 03:30 78 24 155/82 H 96 03/05/21 03:00 77 23 144/85 H 85 L 03/05/21 02:30 84 25 H 136/75 93 03/05/21 02:00 83 23 133/80 92 03/05/21 01:30 77 24 147/99 H 94 03/05/21 01:00 81 22 152/96 H 95 03/05/21 00:30 87 24 167/99 H 96 03/05/21 00:00 82 20 159/92 H 96 03/04/21 23:30 82 30 H 164/98 H 98 03/04/21 23:00 85 27 H 169/114 H 93 03/04/21 22:30 85 28 H 153/107 H 98 Laboratory Results Short CBC 03/05/21 Range/Units 04:51 WBC 4.84 (4.8-10.8) K/uL Hgb 12.2 L (14.0-18.0) g/dL Hct 37.8 L (42-52) % Plt Count 180 (130-400) K/uL BMP 03/05/21 04:51 Sodium 140 Potassium 3.7 Chloride 106 Carbon Dioxide 30 BUN 19 H Creatinine 1.12 Glucose 106 H Calcium 8.3 L Liver Function 03/05/21 Range/Units 04:51 Total Bilirubin 0.9 (0.2-1) mg/dl AST 12 L (15-37) U/L ALT 20 (12-78) Alkaline Phosphatase 59 (45-117) U/L Albumin 2.4 L (3.4-5.0) gm/dl Medications Administered Current Inpatient Medications Acetaminophen (Acetaminophen 325 Mg Tab) 650 mg PO Q4H PRN PRN Reason: Pain or Fever Stop: 04/01/21 19:31 Carvedilol (Carvedilol 6.25 Mg Tab) 6.25 mg PO BID [facility] Stop: 04/03/21 20:59 Last Admin: 03/05/21 08:28 Dose: 6.25 mg Documented by: Heparin Sodium (Porcine) (Heparin Sod 5,000 Unit/0.5 Ml Vial) 5,000 units SQ Q8 [facility] Stop: 04/01/21 21:59 Last Admin: 03/05/21 06:32 Dose: 5,000 units Documented by: Lorazepam (Ativan) 1 mg in 2 mls @ 2 mls/min IV Q3H PRN PRN Reason: anxiety Stop: 04/03/21 10:19 Bumetanide 1 mg/ Syringe 4 mls @ 4 mls/min IV [id number] [facility] Stop: 04/04/21 13:59 Labetalol HCl (Labetalol Hcl Iv 5 Mg/Ml 20ml) 10 mg IV Q2H PRN PRN Reason: Hypertension Stop: 04/01/21 22:01 Last Admin: 03/04/21 02:55 Dose: 10 mg Documented by: Ondansetron HCl (Ondansetron Inj 2 Mg/Ml 2 Ml Vial) 4 mg IV Q6H PRN PRN Reason: Nausea Stop: 04/01/21 19:31 Polyethylene Glycol (Polyethylene (Miralax) 17 Gm Pack) 17 gm PO DAILY PRN PRN Reason: Constipation Stop: 04/01/21 19:31 Potassium Chloride (Potassium Chloride Crtab 20 Meq Tabcr) 20 meq PO ONE ONE Stop: 03/05/21 14:01 Sacubitril/Valsartan (Valsartan/Sacubitril 26/24mg Tab) 1 tab PO BID [facility] Stop: 04/03/21 09:14 Last Admin: 03/05/21 08:29 Dose: 1 tab Documented by: Spironolactone (Spironolactone 25 Mg Tab) 25 mg PO DAILY [facility] Stop: 04/05/21 08:59
[2021-03-05] MEDS ORDERED: POTASSIUM CHLORIDE CRTAB 20 MEQ TABCR PO ONE (14:00)
[2021-03-05] MEDS: BUMETANIDE 1 MG in SYRINGE 0 ML IV SCH (15:07)
[2021-03-05] MEDS: LORazepam 1 MG/2 ML VIAL IV PRN (21:34)
[2021-03-06 05:17] LABS: BUN Creatinine Ratio 15.2 (10-20); Calcium 8.7 mg/dl (8.5-10.1); Creatinine Clr Calc Pharmacy 94.5 ml/min; Est GFR (African American) 80.3 ml/min; Est GFR (Non-African American) 69.3 ml/min; Potassium 3.7 mmol/L (3.5-5.1)
[2021-03-06] MEDS: HEPARIN SOD 5,000 UNIT/0.5 ML VIAL SQ SCH (06:29)
[2021-03-06] MEDS ORDERED: POTASSIUM CHLORIDE CRTAB 20 MEQ TABCR PO STA (08:54)
[2021-03-06] MEDS: BUMETANIDE 1 MG in SYRINGE 0 ML IV SCH ×2 (09:31→14:06)
[2021-03-06] MEDS: carvediloL 6.25 MG TAB PO SCH ×2 (09:32→20:16)
[2021-03-06] MEDS: VALSARTAN/SACUBITRIL 26/24MG TAB PO SCH ×2 (09:32→20:16)
[2021-03-06] MEDS: SPIRONOLACTONE 25 MG TAB PO SCH (09:33)
[2021-03-06 09:51] LABS: Abnormal Protein Band 1 DNR mg/24 h (NONE DETECTED); Abnormal Protein Band 2 DNR mg/24 h (NONE DETECTED); Abnormal Protein Band 3 DNR mg/24 h (NONE DETECTED); Creatinine, 24 hr Urine 1.39 g/24 h (0.50-2.15); Protein, Urine 24 Hour 383 mg/24 h (<150); Ur Protein/Creatinine Rat mg/g 276 mg/g creat (< OR = 114); Urine Protein/Creatinine Ratio 0.276 (< OR = 0.114)
--- NOTE | 2021-03-06 10:03 | XRay Report ---
XR chest 2V PA/lateral CLINICAL HISTORY: follow up CHF, left pleural effusion TECHNIQUE: AP and lateral frontal radiograph of the chest was obtained. Comparison: Comparison is made to chest one view 03/03/2021 FINDINGS: No lines and tubes are seen. Cardiomegaly is noted. A left retrocardiac opacity is seen. Overall airs pace opacities are improved from prior exam. There is a small left pleural effusion. IMPRESSION: Small left pleural effusion and left retrocardiac opacity. These are improved from prior exam. ACT 112: Negative or not required by law. Electronically signed by: Bhavesh Bourgeois M.D. 03/06/2021 10:02 AM
[2021-03-06] MEDS: ENOXAPARIN INJ 40 MG/0.4 ML SYR SQ SCH (10:18)
[2021-03-06 12:14] LABS: Appearance Urine Clear (Clear); Bilirubin Urine Negative (Negative); Blood Urine Negative (Negative); Color Urine Yellow; Glucose Urine UA Negative (Negative); Ketones Urine Negative (Negative); Leukocyte Esterase Urine Negative (Negative); Nitrite Urine Negative (Negative); Protein Urine Negative (Negative); Specific Gravity Urine 1.006 (1.000-1.030); Urobilinogen Urine Negative (Negative); pH Urine 7.5 (4.5-7.5)
--- NOTE | 2021-03-06 12:21 | Cardiology Progress Note ---
Date of Service March 06, 2021 Assessment & Plan (1) Hypertensive emergency: (2) Acute HFrEF (heart failure with reduced ejection fraction): (3) Proteinuria: Plan: Diagnostics: -Bedside Echocardiogram performed 03/03/21 reveled severe concentric LVH, small circumferential pericardial effusion without tamponade, severe global LV systolic dysfunction, LVEF 25-29%. Abnormal Global Longitudinal strain pattern with sparing of apical segments which is suggestive of infiltrative cardiomyopathy / amyloid. Renal US reveals normal kidney size , no hydronephrosis. Cirrhotic liver morphology (past h/o of ETOH use, or perhaps related to cardiomyopathy with hepatic congestion). Total cholesterol, TG, LDL controlled , LDL 62 mg/dl. Patient has been found to have 3+ protein on urinalysis. serum albumin had been normal at 3.4 on admission, with diuretic therapy is now low at 2.4. -24-hour Urine protein= 419.1 milligrams - repeat urinalysis with microscopic evaluation - urine catecholamines, urine metanephrines pending Serum aldosterone and renin levels have been ordered. Serum protein electrophoresis within normal limits Urine Protein electrophoresis within normal limits. Therapeutics: vigorous urine output noted yesterday, creatinine actually improved with blood pressure control, diuretic administration. Continue Bumex to 1 milligram IV twice daily Supplement potassium. Coreg 6.25 mg BID Spironolactone to 25 mg daily Entresto / BID ( need to work on look and options with regards to helping the patient for this medication as he is uninsured). If Entresto not an option in terms of cost at discharge, can transition him to losartan, 50 milligrams daily at discharge pending approval of Entresto in the future. Renal function stable, transition from subcutaneous heparin 3 times per day to Lovenox 40 milligrams subcutaneously daily. Rationale for need for Lovenox regarding DVT prophylaxis described to the patient. He is agreeable. Will start order process for a [place] Life Vest. Await Medical Assistance. Will patient's permission, I called and spoke to the patient's spouse, Sharyn, by phone on 03/05/21. He has a history of past heavy alcohol use, up to a 12 pack of beer per day up until a few weeks ago. 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 He used cocaine for about a year, but ceased since 2018 or 2019. He has been having daily headaches for months. Sharyn applied for medical assistance on his behalf on 03/04/21. - Disposition: Remain in hospital, pending further diuretic therapy, optimization of medications. Although blood pressure is still high, it is drastically improved, and for today, I favor continuing the same medication regimen. Admission and Anticipated Discharge Date Admission Date: March 02, 2021 Subjective Patient seen in cardiology significant urine output noted the last 24 hours, with 3.9 liters of urine output yesterday, 1.4 liters thus far today. Review of Systems Review of Systems: All systems reviewed & are unremarkable except as noted in HPI & below Cardiovascular: Additional Comments: LE edema Physical Exam Physical Exam: Temp Pulse Resp BP Pulse Ox 36.8 C 91 H 23 169/109 H 97 03/06/21 11:33 03/06/21 11:23 03/06/21 11:23 03/06/21 11:23 03/06/21 11:23 Constitutional: WD/WN, vitals as above Neck: trachea midline, no thyromegaly Respiratory: Auscultation: + diminished lung sounds (decreased BS bilaterally at the bases) Cardiovascular: Rate/Rhythm: regular rhythm Heart Sounds: no murmur Vessels: + JVD Extremities: + edema (2+ BL LE edema) Gastrointestinal (Abdomen): normal bowel sounds, soft, nontender, no hepatosplenomegaly Neurologic: PERRL, EOMI, accommodation nl, no face palsy, no dysarthria Results & Data ([facility]) Vital Signs (Past 12 Hours) Vital Signs Temp Pulse Resp BP Pulse Ox 03/06/21 11:33 36.8 C 03/06/21 11:23 91 H 23 169/109 H 97 03/06/21 09:00 80 21 161/105 H 96 03/06/21 08:03 82 03/06/21 07:00 85 23 134/104 H 03/06/21 06:15 81 21 03/06/21 06:00 88 24 154/86 H 03/06/21 05:45 89 20 03/06/21 05:30 87 24 03/06/21 05:25 89 21 172/95 H 03/06/21 05:15 93 H 20 03/06/21 05:00 82 24 03/06/21 04:30 81 23 03/06/21 04:00 36.7 C 91 H 22 172/95 H 91 03/06/21 03:30 84 23 92 03/06/21 03:04 90 26 H 161/90 H 95 03/06/21 03:01 90 24 94 03/06/21 03:00 89 22 96 03/06/21 02:03 93 H 26 H 93 03/06/21 01:17 87 03/06/21 01:01 86 23 95 03/06/21 01:00 89 25 H 96 Laboratory Results Comprehensive Metabolic Panel 03/06/21 Range/Units 04:26 Sodium 138 (136-145) mmol/L Potassium 3.7 (3.5-5.1) mmol/L Chloride 105 (98-107) mmol/L Carbon Dioxide 29 (21-32) mmol/L BUN 19 H (7-18) mg/dl Creatinine 1.24 (0.6-1.4) mg/dl Glucose 118 H (70-99) mg/dl Calcium 8.7 (8.5-10.1) mg/dl Intake and Output 03/05/21 03/06/21 03/06/21 22:59 06:59 14:59 Intake Total 800 / 1280 680 / 680 Output Total 1440 / 3940 1100 / 3940 1400 / 1400 Balance -1440 / -2660 -300 / -2660 -720 / -720 Intake: Oral 800 / 1280 680 / 680 Output: Urine 1200 / 2300 1100 / 2300 Urine Amount (Catheter) 240 / 1640 1400 / 1400 Dias/Indwelling 240 / 1640 1400 / 1400
[2021-03-06] MEDS: POTASSIUM CHLORIDE CRTAB 20 MEQ TABCR PO SCH (14:04)
--- NOTE | 2021-03-06 16:14 | Communication Note ---
Date of Service: March 06, 2021 Results from this morning reviewed Chest x-ray improved, with residual small left pleural effusion. Repeat urinalysis without any proteinuria.
--- NOTE | 2021-03-06 17:36 | Hospitalist Progress Note ---
Date of Service March 06, 2021 Assessment & Plan (1) Hypertensive emergency: Plan: Continues on guideline directed therapy with Entresto 26/24 1 tab p.o. twice daily and Aldactone 12.5 mg p.o. daily and carvedilol 6.25 mg p.o. twice daily. Secondary work-up ongoing including rule out pheochromocytoma and Hyperaldosteronism. Renal us revealed normal-sized kidneys without hydronephrosis. As he is now off the nitro drip and BP is more controlled. Continues on scheduled Bumex with good diuretic response. (2) Acute HFrEF (heart failure with reduced ejection fraction): Plan: Progressive edema over past 2 months extending from feet up to chest. Also with cough, dyspnea on exertion, orthopnea, PND pro-BNP 17,147 on admission Cardiac enzymes trended and no concerning acceleration. No ischemic changes on EKG that are acute and concerning. Continue Bumex as renal function allows per Cardiology. Strict I&Os with barrientos in place, daily weights, low sodium diet, supplemental O2 as needed Guideline directed medical therapy per cardiology. Patient doesn't have medical insurance, pending application for MA. Also there are concerns for possibly infiltrative cardiomyopathy on the echocardiogram--cardiology following this. Life vest prior to discharge. (3) Elevated troponin: Plan: Likely related to demand ischemia. No further work-up at this time. No immediate concerns for ACS. (4) Alcohol use: Plan: History of heavy alcohol use, has decreased to 2 beers 3x/week AWSS protocol, IV ativan as needed (5) Cirrhosis: Plan: Seen on imaging. Not biopsy-proven. Outpatient work-up to follow discharge. (6) Proteinuria: Plan: New finding this admission. Renal ultrasound is normal. Nonnephrotic range proteinuria on the 24 hour collection. Urine studies still pending for catecholamines and metanephrines as above. Secondary hypertension work-up as above. Continue to monitor. (7) DVT prophylaxis: Plan: Heparin Full code Disposition-to home when medically cleared DO Sofia Rader Hospitalist Admission and Anticipated Discharge Date Admission Date: March 02, 2021 Subjective 45-year-old man admitted for hypertensive emergency and edema, found to have acute systolic heart failure. Patient denies any shortness of breath, chest pain, nausea, vomiting. No issues today Reportedly ambulating around the room wihtout issue Swelling is improving. Review of Systems Review of Systems: All systems reviewed negative except as indicated above. Physical Exam Physical Exam: CONSTITUTIONAL: WNWD, vitals as above, generally well- appearing, NAD EYES: normal conjunctivae, no scleral icterus ENT: external ear and nose normal, MMM NECK: trachea midline, RESPIRATORY: clear to auscultation bilaterally, no crackles, rales or wheezes, normal respiratory effort CARDIOVASCULAR: regular rate and rhythm, S1 and 2 heard without murmurs, gallops or rubs, no JVD, trace peripheral edema to bilateral lower extremities, appears improved. CHEST: inspection of chest was normal GASTROINTESTINAL: soft, nontender, no guarding, ND MUSCULOSKELETAL: strength 5/5 throughout, head is normocephalic and atraumatic SKIN: warm and dry, NEUROLOGIC: CN 2-12 grossly intact, no sensory deficit, normal cognition, normal speech, no tremor, no gross focal deficits. PSYCHIATRIC: alert cooperative and oriented to person, place and time. Results & Data Results & Data ([facility]) Vital Signs (Past 12 Hours) Vital Signs Temp Pulse Resp BP Pulse Ox 03/06/21 11:33 36.8 C 03/06/21 11:23 91 H 23 169/109 H 97 03/06/21 09:00 80 21 161/105 H 96 03/06/21 08:03 82 03/06/21 07:00 85 23 134/104 H 03/06/21 06:15 81 21 03/06/21 06:00 88 24 154/86 H 03/06/21 05:45 89 20 Laboratory Results BMP 03/06/21 04:26 Sodium 138 Potassium 3.7 Chloride 105 Carbon Dioxide 29 BUN 19 H Creatinine 1.24 Glucose 118 H Calcium 8.7 Urine 03/06/21 Range/Units 12:00 Urine Color Yellow Urine Appearance Clear (Clear) Urine pH 7.5 (4.5-7.5) Ur Specific [place] 1.006 (1.000-1.030) Urine Protein Negative (Negative) Urine Glucose (UA) Negative (Negative) Diagnostic Findings Chest X-Ray 03/06/21 08:56 XR chest 2V PA/lateral CLINICAL HISTORY: follow up CHF, left pleural effusion TECHNIQUE: AP and lateral frontal radiograph of the chest was obtained. Comparison: Comparison is made to chest one view 03/03/2021 FINDINGS: No lines and tubes are seen. Cardiomegaly is noted. A left retrocardiac opacity is seen. Overall airspace opacities are improved from prior exam. There is a small left pleural effusion. IMPRESSION: Small left pleural effusion and left retrocardiac opacity. These are improved from prior exam. ACT 112: Negative or not required by law. Electronically signed by: Bhavesh Bourgeois M.D. 03/06/2021 10:02 AM Medications Administered Current Inpatient Medications Acetaminophen (Acetaminophen 325 Mg Tab) 650 mg PO Q4H PRN PRN Reason: Pain or Fever Stop: 04/01/21 19:31 Carvedilol (Carvedilol 6.25 Mg Tab) 6.25 mg PO BID [facility] Stop: 04/03/21 20:59 Last Admin: 03/06/21 09:32 Dose: 6.25 mg Documented by: Enoxaparin Sodium (Enoxaparin Inj 40 Mg/0.4 Ml Syr) 40 mg SQ QAM [facility] Stop: 04/05/21 08:59 Last Admin: 03/06/21 10:18 Dose: 40 mg Documented by: Lorazepam (Ativan) 1 mg in 2 mls @ 2 mls/min IV Q3H PRN PRN Reason: anxiety Stop: 04/03/21 10:19 Last Admin: 03/05/21 21:34 Dose: 2 mls/min Documented by: Bumetanide 1 mg/ Syringe 4 mls @ 4 mls/min IV [id number] [facility] Stop: 04/04/21 13:59 Last Admin: 03/06/21 14:06 Dose: 4 mls/min Documented by: Ondansetron HCl (Ondansetron Inj 2 Mg/Ml 2 Ml Vial) 4 mg IV Q6H PRN PRN Reason: Nausea Stop: 04/01/21 19:31 Polyethylene Glycol (Polyethylene (Miralax) 17 Gm Pack) 17 gm PO DAILY PRN PRN Reason: Constipation Stop: 04/01/21 19:31 Potassium Chloride (Potassium Chloride Crtab 20 Meq Tabcr) 20 meq PO [id number] [facility] Stop: 04/05/21 13:59 Last Admin: 03/06/21 14:04 Dose: 20 meq Documented by: Sacubitril/Valsartan (Valsartan/Sacubitril 26/24mg Tab) 1 tab PO BID [facility] Stop: 04/03/21 09:14 Last Admin: 03/06/21 09:32 Dose: 1 tab Documented by: Spironolactone (Spironolactone 25 Mg Tab) 25 mg PO DAILY [facility] Stop: 04/05/21 08:59 Last Admin: 03/06/21 09:33 Dose: 25 mg Documented by:
[2021-03-06] MEDS: LORazepam 1 MG/2 ML VIAL IV PRN (22:37)
[2021-03-07 05:54] LABS: Hematocrit (blood only) 41.8 % (42-52); Hemoglobin 13.4 g/dL (14.0-18.0); Mean Corpuscular Hemoglobin 28.6 pg (25-34); Mean Corpuscular Hgb Conc 32.1 g/dL (32-36); Mean Corpuscular Volume 89.3 fL (80-100); Platelet Count 193 K/uL (130-400); RDW Coefficient of Variation 13.5 % (11.5-14.5); RDW Standard Deviation 44.3 fL (36.4-46.3); Red Blood Count 4.68 M/uL (4.7-6.1); White Blood Count 4.52 K/uL (4.8-10.8)
[2021-03-07 06:19] LABS: Potassium 3.6 mmol/L (3.5-5.1)
[2021-03-07 06:25] LABS: BUN Creatinine Ratio 15.5 (10-20); Calcium 8.6 mg/dl (8.5-10.1); Est GFR (African American) 78.8 ml/min; Magnesium 2.2 mg/dl (1.8-2.4)
[2021-03-07 06:27] LABS: Albumin Globulin Ratio 0.7 (0.9-2); Albumin Level 2.6 gm/dl (3.4-5.0); Bilirubin,Total 0.8 mg/dl (0.2-1); Globulin 3.5 gm/dl (2.5-4.0); Phosphorus 2.6 mg/dl (2.5-4.9); Total Protein 6.1 gm/dl (6.4-8.2)
[2021-03-07] MEDS: VALSARTAN/SACUBITRIL 26/24MG TAB PO SCH ×2 (09:34→20:56)
[2021-03-07] MEDS: SPIRONOLACTONE 25 MG TAB PO SCH (09:34)
[2021-03-07] MEDS: POTASSIUM CHLORIDE CRTAB 20 MEQ TABCR PO SCH ×2 (09:35→14:39)
[2021-03-07] MEDS: carvediloL 6.25 MG TAB PO SCH ×2 (09:35→20:56)
[2021-03-07] MEDS: ENOXAPARIN INJ 40 MG/0.4 ML SYR SQ SCH (09:35)
[2021-03-07] MEDS: BUMETANIDE 1 MG in SYRINGE 0 ML IV SCH ×2 (09:37→14:42)
--- NOTE | 2021-03-07 10:36 | Cardiology Progress Note ---
Date of Service March 07, 2021 Assessment & Plan (1) Acute HFrEF (heart failure with reduced ejection fraction): (2) Hypertensive emergency: (3) Proteinuria: (4) Alcohol use: Plan: Patient clinically improving. He will receive a.m. medications including Entresto, Aldactone, carvedilol, and Bumex. Consider titration of Entresto or carvedilol pending blood pressure assessment over the next 24 hours. If he is unable to afford Entresto will transition to ARB, losartan 50 mg daily. Monitor daily weight, fluid balance, GFR, and electrolytes. LifeVest ordered. Await medical assistance. Admission and Anticipated Discharge Date Admission Date: March 02, 2021 Subjective Patient seen examined the bedside. Fluid balance negative more than 1100 cc. Edema improving. Blood pressure elevated this a.m. prior to receiving medication. Tolerating diuretic and evidence-based heart failure therapy. No orthopnea or PND. Denies palpitations, lightheadedness, or dizziness. Telemetry reveals sinus rhythm. No sustained dysrhythmia. Review of Systems Review of Systems: All systems reviewed & are unremarkable except as noted in Subjective Physical Exam Constitutional: well nourished and + ill appearing; no acute distress Respiratory: normal respiratory effort; no respiratory distress and no retractions Auscultation: + diminished lung sounds (Bases bilateral); no rales, no rhonchi and no wheezes Cardiovascular: Rate/Rhythm: regular rate and regular rhythm Heart Sounds: normal S1 and normal S2; no murmur Vessels: + JVD; no carotid bruit Extremities: + edema (2+ bilateral pretibial edema) Gastrointestinal (Abdomen): Inspection/Auscultation: abdomen normal to inspection and normal bowel sounds; abdomen not distended Percussion/Palpation: abdomen soft; abdomen nontender, no guarding and abdomen not rigid Neurologic: CN's II-XI intact bilaterally and moves all extremities; no focal motor deficits Motor/Sensory: no tremor Psychiatric: A+Ox3, euthymic affect Results & Data ([facility]) Vital Signs (Past 12 Hours) Vital Signs Temp Pulse Pulse Resp BP BP BP 03/07/21 09:37 36.8 C 79 20 185/103 H 03/07/21 08:00 81 03/07/21 03:23 36.8 C 87 20 148/84 H 01/08/22 00:19 88 03/07/21 00:00 36.8 C 86 18 157/94 H Pulse Ox 03/07/21 09:37 98 03/07/21 08:00 03/07/21 03:23 96 03/07/21 00:19 03/07/21 00:00 99
--- NOTE | 2021-03-07 11:41 | Hospitalist Progress Note ---
Date of Service March 07, 2021 Assessment & Plan (1) Hypertensive emergency: Plan: Continues on guideline directed therapy with Entresto 26/24 1 tab p.o. twice daily and Aldactone 12.5 mg p.o. daily and carvedilol 6.25 mg p.o. twice daily. Secondary work-up ongoing including rule out pheochromocytoma and Hyperaldosteronism. Renal US revealed normal-sized kidneys without hydronephrosis. Off the nitro drip and BP is more controlled. Continues on scheduled Bumex with good diuretic response. (2) Acute HFrEF (heart failure with reduced ejection fraction): Plan: Progressive edema over past 2 months extending from feet up to chest. Also with cough, dyspnea on exertion, orthopnea, PND pro-BNP 17,147 on admission Cardiac enzymes trended and no concerning acceleration. No ischemic changes on EKG that are acute and concerning. Continue Bumex as renal function allows per Cardiology. Strict I&Os with barrientos in place, daily weights, low sodium diet, supplemental O2 as needed Guideline directed medical therapy per cardiology. Patient doesn't have medical insurance, pending application for MA. Also there are concerns for possibly infiltrative cardiomyopathy on the echocardiogram--cardiology following this. Life vest prior to discharge. LifeVest ordered, await medical assistance. (3) Elevated troponin: Plan: Likely related to demand ischemia. No further work-up at this time. No immediate concerns for ACS. (4) Alcohol use: Plan: History of heavy alcohol use, has decreased to 2 beers 3x/week AWSS protocol, IV ativan as needed (5) Cirrhosis: Plan: Seen on imaging. Not biopsy-proven. Outpatient work-up to follow discharge. (6) Proteinuria: Plan: New finding this admission. Renal ultrasound is normal. Nonnephrotic range proteinuria on the 24 hour collection. Urine studies still pending for catecholamines and metanephrines as above. Secondary hypertension work-up as above. Continue to monitor. (7) DVT prophylaxis: Plan: Heparin Full code Disposition-to home when medically cleared Admission and Anticipated Discharge Date Admission Date: March 02, 2021 Subjective 45 yo M admitted for hypertensive emergency and edema, found to have acute systolic heart failure. Patient is currently sitting up in bed, in no acute distress Reports that his swelling is much improved Denies any chest pain shortness of breath, also denies fevers chills, feeling dizzy or lightheaded when ambulating He does report feeling anxious at night Patient's at the bedside Review of Systems Review of Systems: All systems reviewed & are unremarkable except as noted in Subjective Physical Exam Physical Exam: CONSTITUTIONAL: W N/WD M in NAD EYES : normal conjunct ivae, no scleral i cterus ENT: exter nal ear and nose n ormal, MMM NECK:s upple RESPIRATORY: clear to auscult ation bilaterally, no crackles, rale s or wheezes, norm al respiratory eff ort CARDIOVASCULAR : regular rate an d rhythm, S1 and 2 heard without mur murs, gallops or r ubs, no JVD, trace peripheral edema to bilateral lower extremities, appe ars improved. CHES T: inspection of chest was normal G ASTROINTESTINAL: soft, nontender, n o guarding, ND MUS CULOSKELETAL: str ength 5/5 througho ut, head is normoc ephalic and atraum atic SKIN: warm a nd dry, NEUROLOGIC :Alert and orient ed, answering ques tions appropriatel y, no facial asymm etry, speech fluen t, moves extremiti es PSYCHIATRIC: a lert cooperative a nd oriented to per son, place and chelita e. Results & Data Results & Data ([facility]) Vital Signs (Past 12 Hours) Vital Signs Temp Pulse Pulse Resp BP BP BP 03/07/21 09:37 36.8 C 79 20 185/103 H 03/07/21 08:00 81 03/07/21 03:23 36.8 C 87 20 148/84 H 03/07/21 00:19 88 03/07/21 00:00 36.8 C 86 18 157/94 H Pulse Ox 03/07/21 09:37 98 03/07/21 08:00 03/07/21 03:23 96 03/07/21 00:19 03/07/21 00:00 99 Laboratory Results 03/07/21 03/07/21 03/06/21 Range/Units 05:24 05:24 12:00 WBC 4.52 L (4.8-10.8) K/uL RBC 4.68 L (4.7-6.1) M/uL Hgb 13.4 L (14.0-18.0) g/dL Hct 41.8 L (42-52) % MCV 89.3 (80-100) fL MCH 28.6 (25-34) pg MCHC 32.1 (32-36) g/dL RDW Std Deviation 44.3 (36.4-46.3) fL RDW Coeff of Sri 13.5 (11.5-14.5) % Plt Count 193 (130-400) K/uL MPV 10.0 (7.4-10.4) fL Sodium 137 (136-145) mmol/L Potassium 3.6 (3.5-5.1) mmol/L Chloride 105 (98-107) mmol/L Carbon Dioxide 27 (21-32) mmol/L Anion Gap 5.0 (3-11) BUN 19 H (7-18) mg/dl Creatinine 1.26 (0.6-1.4) mg/dl Est Cr Clr Drug Dosing 93.0 ml/min Est GFR ( Amer) 78.8 ml/min Est GFR (Non-Af Amer) 68.0 ml/min BUN/Creatinine Ratio 15.5 (10-20) Glucose 155 H (70-99) mg/dl Calcium 8.6 (8.5-10.1) mg/dl Phosphorus 2.6 (2.5-4.9) mg/dl Magnesium 2.2 (1.8-2.4) mg/dl Total Bilirubin 0.8 (0.2-1) mg/dl AST 16 (15-37) U/L ALT 20 (12-78) Alkaline Phosphatase 63 (45-117) U/L Total Protein 6.1 L (6.4-8.2) gm/dl Albumin 2.6 L (3.4-5.0) gm/dl Globulin 3.5 (2.5-4.0) gm/dl Albumin/Globulin Ratio 0.7 L (0.9-2) Urine Color Yellow Urine Appearance Clear (Clear) Urine pH 7.5 (4.5-7.5) Ur Specific [place] 1.006 (1.000-1.030) Urine Protein Negative (Negative) Urine Glucose (UA) Negative (Negative) Urine Ketones Negative (Negative) Urine Blood Negative (Negative) Urine Nitrite Negative (Negative) Urine Bilirubin Negative (Negative) Urine Urobilinogen Negative (Negative) Ur Leukocyte Esterase Negative (Negative) Medications Administered Current Inpatient Medications Acetaminophen (Acetaminophen 325 Mg Tab) 650 mg PO Q4H PRN PRN Reason: Pain or Fever Stop: 04/01/21 19:31 Carvedilol (Carvedilol 6.25 Mg Tab) 6.25 mg PO BID [facility] Stop: 04/03/21 20:59 Last Admin: 03/07/21 09:35 Dose: 6.25 mg Documented by: Enoxaparin Sodium (Enoxaparin Inj 40 Mg/0.4 Ml Syr) 40 mg SQ QAM [facility] Stop: 04/05/21 08:59 Last Admin: 03/07/21 09:35 Dose: 40 mg Documented by: Lorazepam (Ativan) 1 mg in 2 mls @ 2 mls/min IV Q3H PRN PRN Reason: anxiety Stop: 04/03/21 10:19 Last Admin: 03/06/21 22:37 Dose: 2 mls/min Documented by: Bumetanide 1 mg/ Syringe 4 mls @ 4 mls/min IV [id number] [facility] Stop: 04/04/21 13:59 Last Admin: 03/07/21 09:37 Dose: 4 mls/min Documented by: Ondansetron HCl (Ondansetron Inj 2 Mg/Ml 2 Ml Vial) 4 mg IV Q6H PRN PRN Reason: Nausea Stop: 04/01/21 19:31 Polyethylene Glycol (Polyethylene (Miralax) 17 Gm Pack) 17 gm PO DAILY PRN PRN Reason: Constipation Stop: 04/01/21 19:31 Potassium Chloride (Potassium Chloride Crtab 20 Meq Tabcr) 20 meq PO [id number] [facility] Stop: 04/05/21 13:59 Last Admin: 03/07/21 09:35 Dose: 20 meq Documented by: Sacubitril/Valsartan (Valsartan/Sacubitril 26/24mg Tab) 1 tab PO BID [facility] Stop: 04/03/21 09:14 Last Admin: 03/07/21 09:34 Dose: 1 tab Documented by: Spironolactone (Spironolactone 25 Mg Tab) 25 mg PO DAILY [facility] Stop: 04/05/21 08:59 Last Admin: 03/07/21 09:34 Dose: 25 mg Documented by:
[2021-03-07] MEDS ORDERED: KETOROLAC TROMETHAMINE 15 MG/ML VIAL IV ONE (14:43)
[2021-03-07 16:30] LABS: Renin Activity 1.9 ng/mL/h (0.25-5.82)
[2021-03-07] MEDS: LORazepam 1 MG/2 ML VIAL IV PRN (22:39)
[2021-03-08 07:01] LABS: BUN Creatinine Ratio 21.6 (10-20); Calcium 8.8 mg/dl (8.5-10.1); Creatinine Clr Calc Pharmacy 90.3 ml/min; Est GFR (African American) 81.1 ml/min; Phosphorus 3.1 mg/dl (2.5-4.9); Potassium 4.4 mmol/L (3.5-5.1)
--- NOTE | 2021-03-08 08:08 | Hospitalist Progress Note ---
Date of Service March 08, 2021 Assessment & Plan (1) Hypertensive emergency: Plan: Continues on guideline directed therapy with Entresto 26/24 1 tab p.o. BID and Aldactone 12.5 mg p.o. daily and carvedilol 6.25 mg p.o. BID. Secondary work-up ongoing including rule out pheochromocytoma and Hyperaldosteronism. Renal US revealed normal-sized kidneys without hydronephrosis. Off the nitro drip and BP is more controlled. Continues on scheduled Bumex with good diuretic response. (2) Acute HFrEF (heart failure with reduced ejection fraction): Plan: Progressive edema over past 2 months extending from feet up to chest. Also with cough, dyspnea on exertion, orthopnea, PND pro-BNP 17,147 on admission Cardiac enzymes trended and no concerning acceleration. No ischemic changes on EKG that are acute and concerning. Continue Bumex as renal function allows per Cardiology. Strict I&Os with barrientos in place, daily weights, low sodium diet, supplemental O2 as needed Guideline directed medical therapy per cardiology. Patient doesn't have medical insurance, pending application for MA. Also there are concerns for possibly infiltrative cardiomyopathy on the echocardiogram--cardiology following this. Life vest prior to discharge. LifeVest ordered, await medical assistance. (3) Elevated troponin: Plan: Likely related to demand ischemia. No further work-up at this time. No immediate concerns for ACS. (4) Alcohol use: Plan: History of heavy alcohol use, has decreased to 2 beers 3x/week AWSS protocol, IV ativan as needed (5) Cirrhosis: Plan: Seen on imaging. Not biopsy-proven. Outpatient work-up to follow discharge. (6) Proteinuria: Plan: New finding this admission. Renal ultrasound is normal. Nonnephrotic range proteinuria on the 24 hour collection. Urine studies pending for catecholamines and metanephrines as above. Secondary hypertension work-up as above. Continue to monitor. (7) DVT prophylaxis: Plan: Heparin Full code Disposition-to home when medically cleared Admission and Anticipated Discharge Date Admission Date: March 02, 2021 Subjective 45 yo M admitted for hypertensive emergency and edema, found to have acute systolic heart failure. Patient is currently sitting up in bed, in no acute distress Reports that his swelling is much improved Denies any chest pain shortness of breath, also denies fevers chills, feeling dizzy or lightheaded when ambulating Patient reports uneventful night patient's was updated yesterday at the bedside Review of Systems Review of Systems: All systems reviewed & are unremarkable except as noted in Subjective Physical Exam Physical Exam: CONSTITUTIONAL: W N/WD M in NAD EYES : normal conjunct ivae, no scleral i cterus ENT: exter nal ear and nose n ormal, MMM NECK:s upple RESPIRATORY: clear to auscult ation bilaterally, no crackles, rale s or wheezes, norm al respiratory eff ort CARDIOVASCULAR : regular rate an d rhythm, S1 and 2 heard without mur murs, gallops or r ubs, no JVD, trace peripheral edema to bilateral lower extremities, (muc h improved). CHEST : inspection of c hest was normal GA STROINTESTINAL: s oft, nontender, no guarding, ND MUSC ULOSKELETAL: stre ngth 5/5 throughou t, head is normoce phalic and atrauma tic SKIN: warm an d dry, NEUROLOGIC: Alert and oriente d, answering quest ions appropriately , no facial asymme try, speech fluent , moves extremitie s PSYCHIATRIC: al ert cooperative an d oriented to pers on, place and time . Results & Data Results & Data ([facility]) Vital Signs (Past 12 Hours) Vital Signs Pulse Resp BP 03/08/21 03:00 76 12 03/08/21 02:00 80 0 L 03/08/21 01:00 81 24 03/08/21 00:00 84 26 H 160/95 H 03/07/21 23:00 84 25 H 03/07/21 22:00 85 20 03/07/21 21:00 82 22 Laboratory Results 03/08/21 03/03/21 Range/Units 05:46 10:42 Sodium 135 L (136-145) mmol/L Potassium 4.4 D (3.5-5.1) mmol/L Chloride 103 (98-107) mmol/L Carbon Dioxide 30 (21-32) mmol/L Anion Gap 2.0 L (3-11) BUN 27 H (7-18) mg/dl Creatinine 1.23 (0.6-1.4) mg/dl Est Cr Clr Drug Dosing 90.3 ml/min Est GFR ( Amer) 81.1 ml/min Est GFR (Non-Af Amer) 70.0 ml/min BUN/Creatinine Ratio 21.6 H (10-20) Glucose 98 (70-99) mg/dl Calcium 8.8 (8.5-10.1) mg/dl Phosphorus 3.1 (2.5-4.9) mg/dl Magnesium 2.0 (1.8-2.4) mg/dl Renin Activity 1.90 (0.25-5.82) ng/mL/h Aldosterone 4 (see note) ng/dL Medications Administered Current Inpatient Medications Acetaminophen (Acetaminophen 325 Mg Tab) 650 mg PO Q4H PRN PRN Reason: Pain or Fever Stop: 04/01/21 19:31 Carvedilol (Carvedilol 6.25 Mg Tab) 6.25 mg PO BID [facility] Stop: 04/03/21 20:59 Last Admin: 03/07/21 20:56 Dose: 6.25 mg Documented by: Enoxaparin Sodium (Enoxaparin Inj 40 Mg/0.4 Ml Syr) 40 mg SQ QAM [facility] Stop: 04/05/21 08:59 Last Admin: 03/07/21 09:35 Dose: 40 mg Documented by: Lorazepam (Ativan) 1 mg in 2 mls @ 2 mls/min IV Q3H PRN PRN Reason: anxiety Stop: 04/03/21 10:19 Last Admin: 03/07/21 22:39 Dose: 2 mls/min Documented by: Bumetanide 1 mg/ Syringe 4 mls @ 4 mls/min IV [id number] [facility] Stop: 04/04/21 13:59 Last Admin: 03/07/21 14:42 Dose: 4 mls/min Documented by: Ondansetron HCl (Ondansetron Inj 2 Mg/Ml 2 Ml Vial) 4 mg IV Q6H PRN PRN Reason: Nausea Stop: 04/01/21 19:31 Polyethylene Glycol (Polyethylene (Miralax) 17 Gm Pack) 17 gm PO DAILY PRN PRN Reason: Constipation Stop: 04/01/21 19:31 Potassium Chloride (Potassium Chloride Crtab 20 Meq Tabcr) 20 meq PO [id number] [facility] Stop: 04/05/21 13:59 Last Admin: 03/07/21 14:39 Dose: 20 meq Documented by: Sacubitril/Valsartan (Valsartan/Sacubitril 26/24mg Tab) 1 tab PO BID [facility] Stop: 04/03/21 09:14 Last Admin: 03/07/21 20:56 Dose: 1 tab Documented by: Spironolactone (Spironolactone 25 Mg Tab) 25 mg PO DAILY [facility] Stop: 04/05/21 08:59 Last Admin: 03/07/21 09:34 Dose: 25 mg Documented by:
[2021-03-08] MEDS: POTASSIUM CHLORIDE CRTAB 20 MEQ TABCR PO SCH ×2 (08:16→14:17)
[2021-03-08] MEDS: ENOXAPARIN INJ 40 MG/0.4 ML SYR SQ SCH (08:16)
[2021-03-08] MEDS: carvediloL 6.25 MG TAB PO SCH ×2 (08:16→20:30)
[2021-03-08] MEDS: VALSARTAN/SACUBITRIL 26/24MG TAB PO SCH ×2 (08:17→20:31)
[2021-03-08] MEDS: SPIRONOLACTONE 25 MG TAB PO SCH (08:17)
[2021-03-08] MEDS: BUMETANIDE 1 MG in SYRINGE 0 ML IV SCH ×2 (08:20→14:17)
--- NOTE | 2021-03-08 14:27 | Cardiology Progress Note ---
Date of Service March 08, 2021 Assessment & Plan (1) Acute HFrEF (heart failure with reduced ejection fraction): (2) Hypertensive emergency: (3) Proteinuria: (4) Alcohol use: Plan: Patient clinically improving. Continue IV Bumex 1 mg twice daily. Follow daily weight, GFR, electrolytes, and fluid balance. Continue current evidence-based medical therapies including beta-josh, Entresto, and Aldactone. If patient unable to afford Entresto will transition to ARB, losartan 50 mg daily. Monitor daily weight, fluid balance, GFR, and electrolytes. LifeVest ordered. Await medical assistance. Admission and Anticipated Discharge Date Admission Date: March 02, 2021 Subjective Patient seen and examined the bedside. Blood pressure improving. Telemetry reveals sinus rhythm in the 80s with 112 beat derick of nonsustained ventricular tachycardia. Denies palpitations or lightheadedness. Admits to feeling "bored". Requesting discharge when possible. Scheduled for LifeVest assessment tomorrow. Tolerating medications listed below. Review of Systems Review of Systems: All systems reviewed & are unremarkable except as noted in Subjective Physical Exam Constitutional: well nourished and + ill appearing; no acute distress Respiratory: normal respiratory effort; no respiratory distress and no retractions Auscultation: + diminished lung sounds (Bases bilateral); no rales, no rhonchi and no wheezes Cardiovascular: Rate/Rhythm: regular rate and regular rhythm Heart Sounds: normal S1 and normal S2; no murmur Vessels: + JVD; no carotid bruit Extremities: + edema (2+ bilateral pretibial edema) Gastrointestinal (Abdomen): Inspection/Auscultation: abdomen normal to inspection and normal bowel sounds; abdomen not distended Percussion/Palpation: abdomen soft; abdomen nontender, no guarding and abdomen not rigid Neurologic: CN's II-XI intact bilaterally and moves all extremities; no focal motor deficits Motor/Sensory: no tremor Psychiatric: A+Ox3, euthymic affect Results & Data ([facility]) Vital Signs (Past 12 Hours) Vital Signs Temp Pulse Pulse Resp BP Pulse Ox 03/08/21 12:00 85 18 146/87 H 95 03/08/21 08:00 36.8 C 80 18 165/112 H 96 03/08/21 03:00 76 12
[2021-03-08] MEDS: LORazepam 1 MG/2 ML VIAL IV PRN (22:06)
[2021-03-09 05:39] LABS: BUN Creatinine Ratio 21.6 (10-20); Calcium 9.2 mg/dl (8.5-10.1); Est GFR (African American) 81.9 ml/min; Est GFR (Non-African American) 70.7 ml/min; Magnesium 2.4 mg/dl (1.8-2.4); Potassium 4.6 mmol/L (3.5-5.1)
[2021-03-09 05:40] LABS: Phosphorus 3.2 mg/dl (2.5-4.9)
[2021-03-09] MEDS: POTASSIUM CHLORIDE CRTAB 20 MEQ TABCR PO SCH (08:37)
[2021-03-09] MEDS: carvediloL 6.25 MG TAB PO SCH (08:38)
[2021-03-09] MEDS: SPIRONOLACTONE 25 MG TAB PO SCH (08:38)
[2021-03-09] MEDS: ENOXAPARIN INJ 40 MG/0.4 ML SYR SQ SCH (08:38)
[2021-03-09] MEDS: VALSARTAN/SACUBITRIL 26/24MG TAB PO SCH (08:38)
[2021-03-09] MEDS: BUMETANIDE 1 MG in SYRINGE 0 ML IV SCH (09:51)
--- NOTE | 2021-03-09 10:30 | Hospitalist Progress Note ---
Date of Service March 09, 2021 Assessment & Plan (1) Hypertensive emergency: Plan: Continued on guideline directed therapy with Entresto 26/24 1 tab p.o. BID and Aldactone 12.5 mg p.o. daily and carvedilol 6.25 mg p.o. BID. Secondary work-up ongoing including rule out pheochromocytoma and Hyperaldosteronism. Renal US revealed normal-sized kidneys without hydronephrosis. Off the nitro drip and BP is more controlled. Continued on scheduled Bumex with good diuretic response. (2) Acute HFrEF (heart failure with reduced ejection fraction): Plan: Progressive edema over past 2 months extending from feet up to chest. Also with cough, dyspnea on exertion, orthopnea, PND pro-BNP 17,147 on admission Cardiac enzymes trended and no concerning acceleration. No ischemic changes on EKG that are acute and concerning. Continue Bumex as renal function allows per Cardiology. Strict I&Os with barrientos in place, daily weights, low sodium diet, supplemental O2 as needed Guideline directed medical therapy per cardiology. Patient doesn't have medical insurance, pending application for MA. Also there are concerns for possibly infiltrative cardiomyopathy on the echocardiogram--cardiology following this. Life vest prior to discharge. LifeVest ordered, await medical assistance. Discharge recommendations per cardiology: Coreg 12.5 mg BID Entresto 26/24 mg BID (or losartan 50 mg daily if cost prohibitive) spironolactone 25 mg daily. Furosemide 40 mg PO BID 7 am, 1400 Potassium chloride 20 MEq daily. At time of post hospital cardio follow up in 1-2 weeks, will consider proceeding with combined low intensity exercise / lexiscan stress. Although he has CAD risk factors, presentation appears to be due to nonischemic CM. (3) Elevated troponin: Plan: Likely related to demand ischemia. No further work-up at this time. No immediate concerns for ACS. (4) Alcohol use: Plan: History of heavy alcohol use, has decreased to 2 beers 3x/week AWSS protocol, IV ativan as needed (5) Cirrhosis: Plan: Seen on imaging. Not biopsy-proven. Outpatient work-up to follow discharge. (6) Proteinuria: Plan: New finding this admission. Renal ultrasound is normal. Nonnephrotic range proteinuria on the 24 hour collection. Urine studies pending for catecholamines and metanephrines as above. Secondary hypertension work-up as above. Continue to monitor. (7) DVT prophylaxis: Plan: Heparin Full code Disposition-to home likely today or tomorrow Admission and Anticipated Discharge Date Admission Date: March 02, 2021 Subjective 45 yo M admitted for hypertensive emergency and edema, found to have acute systolic heart failure. Patient is currently laying in bed,resting, in no acute distress Reports that his LE edema is much improved Denies any chest pain, shortness of breath, also denies fevers chills, feeling dizzy or lightheaded when ambulating Patient reports uneventful night patient's was updated over the weekend at the bedside Plan to DC today or tmrw Review of Systems Review of Systems: All systems reviewed & are unremarkable except as noted in Subjective Physical Exam Physical Exam: CONSTITUTIONAL: W N/WD M in NAD EYES : normal conjunct ivae, no scleral i cterus ENT: exter nal ear and nose n ormal, MMM NECK:s upple RESPIRATORY: clear to auscult ation bilaterally, no crackles, rale s or wheezes, norm al respiratory eff ort CARDIOVASCULAR : regular rate an d rhythm, S1 and 2 heard without mur murs, gallops or r ubs, no JVD, trace peripheral edema to bilateral lower extremities, (muc h improved). CHEST : inspection of c hest was normal [place] STROINTESTINAL: s oft, nontender, no guarding, ND MUSC ULOSKELETAL: stre ngth 5/5 throughou t, head is normoce phalic and atrauma tic SKIN: warm an d dry NEUROLOGIC: Alert and oriented , answering questi ons appropriately, no facial asymmet ry, speech fluent, moves extremities PSYCHIATRIC: catrina rt cooperative and oriented to perso n, place and time. Results & Data Results & Data ([facility]) Vital Signs (Past 12 Hours) Vital Signs Temp Pulse Pulse Resp BP BP Pulse Ox 03/09/21 08:26 139/81 03/09/21 07:33 92 H 03/09/21 07:29 36.5 C 86 16 177/111 H 96 03/09/21 05:30 81 21 03/09/21 05:24 36.8 C 85 25 H 164/98 H 03/09/21 05:15 87 26 H 03/09/21 00:00 83 Laboratory Results 03/09/21 03/09/21 Range/Units 07:26 04:52 Sodium 136 (136-145) mmol/L Potassium 4.6 (3.5-5.1) mmol/L Chloride 102 (98-107) mmol/L Carbon Dioxide 27 (21-32) mmol/L Anion Gap 7.0 (3-11) BUN 26 H (7-18) mg/dl Creatinine 1.22 (0.6-1.4) mg/dl Est Cr Clr Drug Dosing 83.0 ml/min Est GFR ( Amer) 81.9 ml/min Est GFR (Non-Af Amer) 70.7 ml/min BUN/Creatinine Ratio 21.6 H (10-20) Glucose 112 H (70-99) mg/dl POC Glucose 110 H (70-99) mg/dl Calcium 9.2 (8.5-10.1) mg/dl Phosphorus 3.2 (2.5-4.9) mg/dl Magnesium 2.4 (1.8-2.4) mg/dl Medications Administered Current Inpatient Medications Acetaminophen (Acetaminophen 325 Mg Tab) 650 mg PO Q4H PRN PRN Reason: Pain or Fever Stop: 04/01/21 19:31 Carvedilol (Carvedilol 6.25 Mg Tab) 6.25 mg PO BID [facility] Stop: 04/03/21 20:59 Last Admin: 03/09/21 08:38 Dose: 6.25 mg Documented by: Enoxaparin Sodium (Enoxaparin Inj 40 Mg/0.4 Ml Syr) 40 mg SQ QAM [facility] Stop: 04/05/21 08:59 Last Admin: 03/09/21 08:38 Dose: 40 mg Documented by: Lorazepam (Ativan) 1 mg in 2 mls @ 2 mls/min IV Q3H PRN PRN Reason: anxiety Stop: 04/03/21 10:19 Last Admin: 03/08/21 22:06 Dose: 2 mls/min Documented by: Bumetanide 1 mg/ Syringe 4 mls @ 4 mls/min IV [id number] [facility] Stop: 04/04/21 13:59 Last Admin: 03/09/21 09:51 Dose: 4 mls/min Documented by: Ondansetron HCl (Ondansetron Inj 2 Mg/Ml 2 Ml Vial) 4 mg IV Q6H PRN PRN Reason: Nausea Stop: 04/01/21 19:31 Polyethylene Glycol (Polyethylene (Miralax) 17 Gm Pack) 17 gm PO DAILY PRN PRN Reason: Constipation Stop: 04/01/21 19:31 Potassium Chloride (Potassium Chloride Crtab 20 Meq Tabcr) 20 meq PO [id number] [facility] Stop: 04/05/21 13:59 Last Admin: 03/09/21 08:37 Dose: 20 meq Documented by: Sacubitril/Valsartan (Valsartan/Sacubitril 26/24mg Tab) 1 tab PO BID [facility] Stop: 04/03/21 09:14 Last Admin: 03/09/21 08:38 Dose: 1 tab Documented by: Spironolactone (Spironolactone 25 Mg Tab) 25 mg PO DAILY [facility] Stop: 04/05/21 08:59 Last Admin: 03/09/21 08:38 Dose: 25 mg Documented by:
[2021-03-09] MEDS ORDERED: carvediloL 6.25 MG TAB PO ONE (11:44)
[2021-03-09] MEDS ORDERED: POTASSIUM CHLORIDE CRTAB 20 MEQ TABCR PO STA (11:50)
--- NOTE | 2021-03-09 11:57 | Cardiology Progress Note ---
Date of Service March 09, 2021 Assessment & Plan (1) Acute HFrEF (heart failure with reduced ejection fraction): (2) Hypertensive emergency: (3) Proteinuria: (4) Alcohol use: Plan: Patient improved clinically. Some BP readings , are still above goal, but several excellent readings also, most recently 110/76 mm Hg. Continue current evidence-based medical therapies including beta-josh, Entresto, and Aldactone. If patient unable to afford Entresto will transition to ARB, losartan 50 mg daily. LifeVest ordered. Hopefully home today, after LifeVest fitted. Medications: Coreg 12.5 mg BID Entresto 26/24 mg BID (or losartan 50 mg daily if cost prohibitive) spironolactone 25 mg daily. Furosemide 40 mg PO BID 7 am, 1400 Potassium chloride 20 MEq daily. At time of post hospital cardio follow up in 1-2 weeks, will consider proceeding with combined low intensity exercise / lexiscan stress. Although he has CAD risk factors, presentation appears to be due to nonischemic CM. Await medical assistance. Discussed with Dr Marroquin by phone. Admission and Anticipated Discharge Date Admission Date: March 02, 2021 Subjective Mr Holliday is seen in follow up. He is feeling better. He had significant diuretic effect over the weekend on IV bumex, 4 L urine output in last 24hr. Telemetry reveals SR in the 80s to 90s. One salve of narrow complex tachycardia of 10-15 beats in duration at 110-120 bpm at 5:19 am, likely SVT. Review of Systems Review of Systems: All systems reviewed & are unremarkable except as noted in HPI & below Physical Exam Physical Exam: Temp Pulse Resp BP Pulse Ox 36.6 C 94 H 16 110/76 97 03/09/21 11:05 03/09/21 11:05 03/09/21 11:05 03/09/21 11:05 03/09/21 11:05 Constitutional: WD/WN, vitals as above Neck: trachea midline, no thyromegaly Respiratory: Auscultation: + diminished lung sounds (decreased BS bilaterally at the bases) Cardiovascular: Rate/Rhythm: regular rhythm Heart Sounds: no murmur Extremities: + edema (trace LE edema, improved) Gastrointestinal (Abdomen): normal bowel sounds, soft, nontender, no hepatosplenomegaly Neurologic: PERRL, EOMI, accommodation nl, no face palsy, no dysarthria Results & Data ([facility]) Vital Signs (Past 12 Hours) Vital Signs Temp Pulse Pulse Resp BP BP Pulse Ox 03/09/21 11:05 36.6 C 94 H 16 110/76 97 03/09/21 08:26 139/81 03/09/21 07:33 92 H 03/09/21 07:29 36.5 C 86 16 177/111 H 96 03/09/21 05:30 81 21 03/09/21 05:24 36.8 C 85 25 H 164/98 H 03/09/21 05:15 87 26 H 03/09/21 00:00 83
[2021-03-09] MEDS ORDERED: FUROSEMIDE 40 MG TAB PO SCH (14:00)
--- NOTE | 2021-03-09 14:14 | Discharge Summary ---
Date of Service March 09, 2021 Admission HPI Per Admitting Provider This is a 45-year-old male with no known past medical history who presents with progressive swelling over the past 2 months. First noted swelling in feet and then legs and it extended up to chest earlier this week. Patient endorsing dry cough, dyspnea on exertion, orthopnea and PND. Has a high sodium diet. Denies any previous diagnosis of cardiomyopathy or heart failure but does have significant heart disease history and family. Denies any fever, chills or chest pain. No nausea, vomiting, abdominal pain, dysuria, diarrhea constipation. Did not take any home medications besides occasional Advil. Last seen by [facility] provider back in 2014. States he was started on a blood pressure med then that was discontinued. Has not followed up with primary care since then. Chews tobacco. Has significant alcohol history but is decreased use to 2 beers 3x/week. Called [facility] clinic for appointment today but was directed to come to ER for further evaluation. Admission Exam Per Admitting Provider General Appearance:WD/WN, vitals as above, NAD, sitting up in bed, pleasant, conversing easily Head: normocephalic, atraumatic Eyes:normal inspection, PERRL, conjunctivae normal, anicteric sclerae ENT: external ear and nose normal, oropharynx normal Neck: normal visual inspection, trachea midline, no thyromegaly Respiratory:normal respiratory effort, bibasilar rales. No accessory muscle use Cardiovascular:tachycardic rate, regular rhythm, no murmur, normal peripheral pulses, 2+ BLE edema extending from feet up to chest wall. Vessels: + JVD Chest: normal inspection of chest Abdomen/GI: normal bowel sounds, soft but distended, nontender, no hepatosplenomegaly Extremities/Musculoskeletal: no cyanosis or clubbing, extremities motor strength 5/5 Neurologic: PERRL, EOMI, accommodation nl, no face palsy, no dysarthria, CN's II-XI intact bilaterally and moves all extremities Psychiatric:A+Ox3, euthymic affect Skin: no rashes, normal color, warm/dry Principal Diagnosis Acute HFrEF (heart failure with reduced ejection fraction): Hypertensive emergency Proteinuria Discharge Exam CONSTITUTIONAL: WN/WD M in NAD EYES: normal conjunctivae, no scleral icterus ENT: external ear and nose normal, MMM NECK:supple RESPIRATORY: clear to auscultation bilaterally, no crackles, rales or wheezes, normal respiratory effort CARDIOVASCULAR: regular rate and rhythm, S1 and 2 heard without murmurs, gallops or rubs, no JVD, trace peripheral edema to bilateral lower extremities, (much improved). CHEST: inspection of chest was normal GASTROINTESTINAL: soft, nontender, no guarding, ND MUSCULOSKELETAL: strength 5/5 throughout, head is normocephalic and atraumatic SKIN: warm and dry NEUROLOGIC:Alert and oriented, answering questions appropriately, no facial asymmetry, speech fluent, moves extremities PSYCHIATRIC: alert cooperative and oriented to person, place and time. Discharge Data Allergies Allergy/AdvReac Type Severity Reaction Status Date / Time No Known Allergies Allergy Unverified 03/02/21 17:41 Consultations 03/02/21 17:57 ED Decision to Admit Stat 03/02/21 19:32 Consult Cardiology Routine 03/02/21 21:10 Consult Hardware Technician Routine Ordered Studies 03/02/21 16:54 US venous doppler LE BI Stat Impression: No evidence of deep venous thrombus. Right popliteal cyst. 03/03/21 09:28 US renal/blad retro comp Routine IMPRESSION: 1. The kidneys are normal in size and without hydronephrosis. 2. The bladder was decompressed and could not be assessed. 3. Cirrhotic liver morphology and splenomegaly. 4. There is trace perisplenic ascites. Hospital Course (1) Hypertensive emergency: Continued on guideline directed therapy with Entresto / 1 tab p.o. BID and Aldactone 12.5 mg p.o. daily and carvedilol 6.25 mg p.o. BID. Secondary work-up ongoing including rule out pheochromocytoma and Hyperaldosteronism. Renal US revealed normal-sized kidneys without hydronephrosis. Off the nitro drip and BP is more controlled. Continued on scheduled Bumex with good diuretic response. (2) Acute HFrEF (heart failure with reduced ejection fraction): Progressive edema over past 2 months extending from feet up to chest. Also with cough, dyspnea on exertion, orthopnea, PND pro-BNP 17,147 on admission Cardiac enzymes trended and no concerning acceleration. No ischemic changes on EKG that are acute and concerning. Continue Bumex as renal function allows per Cardiology. Strict I&Os with barrientos in place, daily weights, low sodium diet, supplemental O2 as needed Guideline directed medical therapy per cardiology. Patient doesn't have medical insurance, pending application for MA. Also there are concerns for possibly infiltrative cardiomyopathy on the echocardiogram--cardiology following this. Life vest prior to discharge. LifeVest ordered, await medical assistance. Discharge recommendations per cardiology: Coreg 12.5 mg BID Entresto 26/24 mg BID (or losartan 50 mg daily if cost prohibitive) spironolactone 25 mg daily. Furosemide 40 mg PO BID 7 am, 1400 Potassium chloride 20 MEq daily. At time of post hospital cardio follow up in 1-2 weeks, will consider proceeding with combined low intensity exercise / lexiscan stress. Although he has CAD risk factors, presentation appears to be due to nonischemic CM. (3) Elevated troponin: Likely related to demand ischemia. No further work-up at this time. No immediate concerns for ACS. (4) Alcohol use: History of heavy alcohol use, has decreased to 2 beers 3x/week AWSS protocol, IV ativan as needed (5) Cirrhosis: Seen on imaging. Not biopsy-proven. Outpatient work-up to follow discharge. (6) Proteinuria: New finding this admission. Renal ultrasound is normal. Nonnephrotic range proteinuria on the 24 hour collection. Urine studies pending for catecholamines and metanephrines as above. Secondary hypertension work-up as above. Continue to monitor. (7) DVT prophylaxis: Heparin Full code Disposition-to home likely today Total Time Total Time Spent Total Time Spent (In Minutes): 40 Discharge Plan Discharge Items Patient Disposition: Home - Self-Care Reason For Visit: HTNIVE EMERGENCY Discharge Diagnosis: Acute HFrEF (heart failure with reduced ejection fraction): Hypertensive emergency Proteinuria Condition on Discharge: Fair Activity: Per Instructions section Non-emergency contact: Primary Care Provider and Stoker Installer Call non-emergency contact if: you have any medication questions and your symptoms worsen Follow-up/Referrals: Shirley Ren MD [Hospitalist] - (Date & Time 03/11/2021 10:00 AM Provider Shirley Ren MD Department General Internal Medicine [facility] ) Diet: Heart Healthy and Low Sodium (2gm) Fluids: 1500ml (6 cups) Addtl Attending Provider Instructions: Follow-up with primary care doctor, and child health associate. Primary care doctor appointment was scheduled for you for March 11, you will be contacted about the appointment with cardiology. He was started on several new medications, take them as prescribed: Coreg 12.5 mg twice a day Entresto 26/24 twice a day (or losartan 50 mg daily if cost prohibitive) spironolactone 25 mg daily. Furosemide 40 mg PO twice a day 7am, 2pm Potassium chloride 20 MEq daily. Pending Studies at Discharge: Yes Studies:: secondary hypertension work-up Stand-Alone Forms: My [facility], Smoking Cessation Medications and DC Order Prescriptions: New carvedilol 12.5 mg Tablet 12.5 mg PO BID Qty: 60 RF: 0 Entresto 24-26 mg Tablet 1 tab PO BID Qty: 60 RF: 0 spironolactone 25 mg Tablet 25 mg PO DAILY Qty: 30 RF: 0 furosemide 40 mg Tablet 40 mg PO BID Qty: 60 RF: 0 potassium chloride 20 mEq Tablet,Er Particles/Crystals 20 meq PO QAM Qty: 30 RF: 0 Discontinued ibuprofen 200 mg Tablet 0 mg PO Q6H PRN (Reason: Pain) RF: 0 Discharge Orders: Discharge Order (Routine); Ordered 03/09/21 Ordered By: Montana Macias Admission Data Admit Date/Time: 03/02/21 18:03 Attending Provider: Montana Macias Admit Provider: Laly De Luna Primary Care Provider: PCP,NO Other Providers: Laly De Luna ; Randy Weller ; Tamiko Mark
[2021-03-09] MEDS ORDERED: carvediloL 12.5 MG TAB PO SCH (21:00)
[2021-03-10] MEDS ORDERED: POTASSIUM CHLORIDE CRTAB 20 MEQ TABCR PO SCH (09:00)
[2021-03-10 17:11] LABS: Metanephrine, Plasma 66 pg/mL (<=57); Normetanephrine Plasma 369 pg/mL (<=148); Total Metanephrine Plasma 435 pg/mL (<=205)
[2021-03-10 19:36] LABS: Creatinine, 24 hr Urine 2.74 g/24 h (0.50-2.15)
== END 2021-03-09 18:36 | disposition home or self-care (01) | DRG 304 ==
LOC: ED 14:43 → SUATTDRO 18:03 → EDINP 19:03 → 1E 03-03 00:38

== ENCOUNTER 2024-03-20 19:58 | Inpatient (IN) ==
--- NOTE | 2024-03-20 20:35 | Emergency Department Note ---
Impression & Plan Hypertension, Headache, Dizziness, Vomiting ED Provider Note NAME: SUE QUINN AGE: 48 SEX: M : 1975 ARRIVES VIA: Walk-In INFORMANT: [Patient][] ED PROVIDER(S): [Parrish Summers MD] CHIEF COMPLAINT: Hypertension, dizzy HISTORY OF PRESENT ILLNESS: Patient is a 48-year-old male presents to the ER with dizziness and a spinning sensation that began this morning when he got out of bed. He actually fell to the ground but did not suffer any trauma. All day today, he has had higher blood pressure and has been dizzy. There has been some dry heaving. His gave some Zofran that they had at home. The patient's blood pressure has been quite high today. He states that he is taking his medications as prescribed. There has been no cough or congestion. No one-sided weakness, no visual complaint. Of note, the patient has had a right-sided headache for about a week. PMHx/PSHx/Social Hx: See Below PHYSICAL EXAM: GENERAL: Patient is in mild distress, dry heaving. HEENT: No acute trauma, normocephalic atraumatic, mucous membranes moist, no nasal congestion. Pupils equal round and reactive to light. NECK: No stridor, no adenopathy, no meningismus, trachea is midline. LUNGS: Clear to auscultation bilaterally, no wheeze, no rhonchi, breath sounds equal. HEART: Without murmurs gallops or rubs, regular rate and rhythm. ABDOMEN: Soft, nontender, no peritonitis. EXTREMITIES: No cyanosis, full range of motion of all the joints without pain or difficulty. NEUROLOGIC: Oriented x 3, no acute motor or sensory deficits, no focal weakness. No speech slur. SKIN: No jaundice, mild diaphoresis. DIFFERENTIAL DIAGNOSIS: Vertigo, intracranial bleeding, posterior circulation stroke, missed medication dosing, [place], electrolyte imbalance, infection, among others. EMERGENCY DEPARTMENT PROCEDURES: MEDICAL DECISION MAKING: There is no leukocytosis or concerning anemia. There is a normal platelet count. No coagulopathy. No renal failure or significant electrolyte abnormality. No concerning liver enzyme elevation. The patient appears to be in a euthyroid state. ECG shows a sinus rhythm, no ischemia or dysrhythmia. Cardiac enzyme testing x 1 is not consistent with acute cardiac injury. Chest x-ray does not show free air or pneumonia. Brain CT shows no acute bleed or mass effect. On exam, patient was diaphoretic, vomiting and hypertensive. He was complaining of a headache. No speech slur or focal extremity deficit. The patient was out of the window for TNK as his symptoms had been ongoing all day, over 12 hours. The patient was aggressively managed given the hypertension and his presentation. He was given IV Zofran, IV Ativan and IV labetalol. He was given IV Benadryl. With the above medications, the patient's blood pressure decreased, he was feeling improved and resting. No further vomiting. The patient presents with a headache, dizziness, sweating, diaphoresis and hypertension. Certainly, vertigo and uncontrolled hypertension could explain his presentation. There was concern as well for the possibility of a posterior circulation stroke. A hospital stay and further workup was warranted. I spoke with the patient and his , I spoke with case management, the on-call hospitalist was consulted. Prior/Outside records/notes reviewed: None ECG per my interpretation: Indication was hypertension. The ECG shows a normal sinus rhythm with a rate of 66. There is LVH present. There are some inverted T waves in the high lateral leads. There is no acute ST elevation, no PVCs. The QTc was 492. Continuous Cardiac Monitoring per my interpretation: An order was placed for continuous cardiac monitoring. The monitor shows a rate of 88 with normal sinus rhythm. Imaging/x-ray results per my interpretation: Chest x-ray does not show mediastinal widening, pneumonia or pneumothorax. Chronic Medical/Social conditions affecting care: History of hypertension. Care/Management discussed with: Case management, the on-call hospitalist. Level of care consideration(s): After review of the information above and other included data: --I believe the patient requires escalation of care to admission Critical Care Note: I have personally spent 45 minutes of critical care time in the direct management of this patient. This includes bedside care, interpretation of diagnostic studies, and testing, discussion with consultants, patient, and family members, and other required patient management activities. This 45 minutes is in excess of all separately billable procedures. DISPOSITION: Admission Past Med/Surg History Problem List (Updated 03/21/24 @ 01:19 by Parrish Summers MD) Vomiting (Acute) Dizziness (Acute) Headache (Acute) Hypertension (Acute) Hypertensive urgency Encounter for pre-operative examination DVT prophylaxis Proteinuria Acute HFrEF (heart failure with reduced ejection fraction) Acute decompensated heart failure Hypertensive emergency Elevated troponin (Acute) Alcohol use no use since Feb 2021 per pt Cirrhosis following with [facility] GI Medical History Kidney stones passed on own Hypertension hypertensive emergency with hospitalization, acute HFrEF d/c 03/09/2021, ongoing work-up with [facility] cardio and endocrinology including consideration for pheochromocytoma, outpatient 24 hour urine advised by endo-not yet completed by pt Heart failure hospitalization at [facility] with d/c 03/09/2021, EF 25-29% improved to 49% 03/20/2021, LifeVest, following [facility] cardio Tobacco use disorder Idiopathic cardiomyopathy EF 49% 03/20/2021, 25-59% during acute HFrEF hospitalization at [facility] d/c 03/09/2021: most suggestive of nonischemic, hypertension related cardiomyopathy with potential TTR amyloid per cardio Surgical History (Updated 05/21/21 @ 07:44 by Rachel Osman RN) Hx of vasectomy History of esophagogastroduodenoscopy (EGD) History of colonoscopy History of tooth extraction Family History (Updated 05/21/21 @ 07:42 by Rachel Osman RN) Grandmother Diabetes Uncle Diabetes Other Heart disease Social History Smoking Status: Never smoker Tobacco Type: Smokeless Tobacco (Dip or Chew) Second Hand Exposure: No; Do You Dip or Chew Tobacco: Yes (advised npo status); Hx Alcohol Use: Yes Alcohol type: beer Alcohol type Comment: 2 beers 3x/week Hx Substance Use: Yes Substance Use Type Other:: infrequently Preferred Language: Lithuanian Communication Ability: Effective Supervisor Print Line Required: No Beliefs That Will Affect Care: None marital status: Current Living Situation: Spouse Feels Safe at Home: Yes Assistive Devices: Contacts and Glasses Allergies Allergies Allergy/AdvReac Type Severity Reaction Status Date / Time No Known Allergies Allergy Verified 05/21/21 07:36 Home Meds Home Medications Medication Instructions Recorded Confirmed carvedilol 12.5 mg tablet 12.5 mg PO BID 03/21/24 03/21/24 eplerenone 25 mg tablet 12.5 mg PO DAILY 03/21/24 03/21/24 sacubitril 49 mg-valsartan 51 mg 1 tab PO BID 03/21/24 03/21/24 tablet (Entresto) Results & Data (ED) Vital Signs Vital Signs - 24 hr 03/20/24 20:06 03/20/24 20:50 03/20/24 20:51 Temperature 36.8 C Temperature Source Temporal Artery Scan Pulse Rate 72 51 L Pulse Rate from SpO2 Sensor Respiratory Rate 16 Blood Pressure 215/130 H 181/92 H Blood Pressure Mean 158 130 Blood Pressure Position Sitting Pulse Oximetry 99 Oxygen Delivery Method Room Air Sepsis Recent Fever Within 48 Hours No Sepsis New/Unexplained Change in Mental Status No Sepsis Action Taken by Nursing No Action Required 03/20/24 20:51 03/20/24 20:54 03/20/24 20:55 Temperature Temperature Source Pulse Rate 51 L 49 L Pulse Rate from SpO2 Sensor 52 L 50 L Respiratory Rate 12 19 Blood Pressure 216/128 H Blood Pressure Mean 174 Blood Pressure Position Pulse Oximetry 98 96 Oxygen Delivery Method Sepsis Recent Fever Within 48 Hours Sepsis New/Unexplained Change in Mental Status Sepsis Action Taken by Nursing 03/20/24 20:57 03/20/24 21:00 03/20/24 21:00 Temperature Temperature Source Pulse Rate 50 L Pulse Rate from SpO2 Sensor 50 L Respiratory Rate 16 Blood Pressure 209/113 H 209/113 H Blood Pressure Mean 179 179 Blood Pressure Position Pulse Oximetry 96 Oxygen Delivery Method Sepsis Recent Fever Within 48 Hours Sepsis New/Unexplained Change in Mental Status Sepsis Action Taken by Nursing 03/20/24 21:02 03/20/24 21:02 03/20/24 21:05 Temperature Temperature Source Pulse Rate Pulse Rate from SpO2 Sensor Respiratory Rate Blood Pressure 204/126 H Blood Pressure Mean 160 Blood Pressure Position Pulse Oximetry 98 98 Oxygen Delivery Method Room Air Room Air Sepsis Recent Fever Within 48 Hours Sepsis New/Unexplained Change in Mental Status Sepsis Action Taken by Nursing 03/20/24 21:06 03/20/24 21:09 03/20/24 21:10 Temperature Temperature Source Pulse Rate 60 56 L Pulse Rate from SpO2 Sensor 55 L 55 L Respiratory Rate 19 18 Blood Pressure 200/100 H Blood Pressure Mean 144 Blood Pressure Position Pulse Oximetry 96 95 Oxygen Delivery Method Sepsis Recent Fever Within 48 Hours Sepsis New/Unexplained Change in Mental Status Sepsis Action Taken by Nursing 03/20/24 21:12 03/20/24 21:15 03/20/24 21:15 Temperature Temperature Source Pulse Rate 56 L 61 Pulse Rate from SpO2 Sensor Respiratory Rate 19 16 Blood Pressure 190/107 H Blood Pressure Mean 154 Blood Pressure Position Pulse Oximetry Oxygen Delivery Method Sepsis Recent Fever Within 48 Hours Sepsis New/Unexplained Change in Mental Status Sepsis Action Taken by Nursing 03/20/24 21:18 03/20/24 21:20 03/20/24 21:24 Temperature Temperature Source Pulse Rate 54 L 59 L Pulse Rate from SpO2 Sensor Respiratory Rate 19 17 Blood Pressure 182/107 H Blood Pressure Mean 140 Blood Pressure Position Pulse Oximetry Oxygen Delivery Method Sepsis Recent Fever Within 48 Hours Sepsis New/Unexplained Change in Mental Status Sepsis Action Taken by Nursing 03/20/24 21:25 03/20/24 21:27 03/20/24 21:35 Temperature Temperature Source Pulse Rate 58 L Pulse Rate from SpO2 Sensor Respiratory Rate 18 Blood Pressure 177/89 H 188/103 H Blood Pressure Mean 124 144 Blood Pressure Position Pulse Oximetry Oxygen Delivery Method Sepsis Recent Fever Within 48 Hours Sepsis New/Unexplained Change in Mental Status Sepsis Action Taken by Nursing 03/20/24 21:55 03/20/24 22:00 03/20/24 22:05 Temperature Temperature Source Pulse Rate 64 Pulse Rate from SpO2 Sensor Respiratory Rate 16 Blood Pressure 182/86 H 172/85 H 174/100 H Blood Pressure Mean 111 114 137 Blood Pressure Position Pulse Oximetry Oxygen Delivery Method Sepsis Recent Fever Within 48 Hours Sepsis New/Unexplained Change in Mental Status Sepsis Action Taken by Nursing 03/20/24 22:10 03/20/24 22:15 03/20/24 22:15 Temperature Temperature Source Pulse Rate Pulse Rate from SpO2 Sensor Respiratory Rate Blood Pressure 171/85 H 159/87 H 159/87 H Blood Pressure Mean 113 125 125 Blood Pressure Position Pulse Oximetry Oxygen Delivery Method Sepsis Recent Fever Within 48 Hours Sepsis New/Unexplained Change in Mental Status Sepsis Action Taken by Nursing 03/20/24 22:20 03/20/24 22:24 03/20/24 22:30 Temperature Temperature Source Pulse Rate 64 Pulse Rate from SpO2 Sensor Respiratory Rate 17 Blood Pressure 179/92 H 158/85 H Blood Pressure Mean 135 113 Blood Pressure Position Pulse Oximetry Oxygen Delivery Method Sepsis Recent Fever Within 48 Hours Sepsis New/Unexplained Change in Mental Status Sepsis Action Taken by Nursing 03/20/24 22:35 03/20/24 22:36 03/20/24 22:40 Temperature Temperature Source Pulse Rate 58 L Pulse Rate from SpO2 Sensor Respiratory Rate 16 Blood Pressure 166/94 H 179/85 H Blood Pressure Mean 110 130 Blood Pressure Position Pulse Oximetry Oxygen Delivery Method Sepsis Recent Fever Within 48 Hours Sepsis New/Unexplained Change in Mental Status Sepsis Action Taken by Nursing 03/20/24 22:45 03/20/24 22:50 03/20/24 23:00 Temperature Temperature Source Pulse Rate Pulse Rate from SpO2 Sensor Respiratory Rate Blood Pressure 161/105 H 155/80 H 163/83 H Blood Pressure Mean 126 110 135 Blood Pressure Position Pulse Oximetry Oxygen Delivery Method Sepsis Recent Fever Within 48 Hours Sepsis New/Unexplained Change in Mental Status Sepsis Action Taken by Nursing 03/20/24 23:05 03/20/24 23:06 03/20/24 23:10 Temperature Temperature Source Pulse Rate 65 Pulse Rate from SpO2 Sensor Respiratory Rate 16 Blood Pressure 157/86 H 164/92 H Blood Pressure Mean 102 114 Blood Pressure Position Pulse Oximetry Oxygen Delivery Method Sepsis Recent Fever Within 48 Hours Sepsis New/Unexplained Change in Mental Status Sepsis Action Taken by Nursing 03/20/24 23:12 03/20/24 23:15 03/20/24 23:15 Temperature Temperature Source Pulse Rate 65 67 Pulse Rate from SpO2 Sensor Respiratory Rate 17 18 Blood Pressure 154/89 H Blood Pressure Mean 111 Blood Pressure Position Pulse Oximetry Oxygen Delivery Method Sepsis Recent Fever Within 48 Hours Sepsis New/Unexplained Change in Mental Status Sepsis Action Taken by Nursing 03/20/24 23:18 03/20/24 23:20 03/20/24 23:24 Temperature Temperature Source Pulse Rate 62 65 Pulse Rate from SpO2 Sensor Respiratory Rate 17 17 Blood Pressure 155/86 H Blood Pressure Mean 111 Blood Pressure Position Pulse Oximetry Oxygen Delivery Method Sepsis Recent Fever Within 48 Hours Sepsis New/Unexplained Change in Mental Status Sepsis Action Taken by Nursing 03/20/24 23:25 03/20/24 23:30 03/20/24 23:30 Temperature Temperature Source Pulse Rate 69 Pulse Rate from SpO2 Sensor Respiratory Rate 21 Blood Pressure 172/84 H 181/129 H Blood Pressure Mean 115 161 Blood Pressure Position Pulse Oximetry Oxygen Delivery Method Sepsis Recent Fever Within 48 Hours Sepsis New/Unexplained Change in Mental Status Sepsis Action Taken by Nursing 03/20/24 23:35 03/20/24 23:39 03/20/24 23:40 Temperature Temperature Source Pulse Rate 70 Pulse Rate from SpO2 Sensor Respiratory Rate 19 Blood Pressure 180/96 H 169/97 H Blood Pressure Mean 133 129 Blood Pressure Position Pulse Oximetry Oxygen Delivery Method Sepsis Recent Fever Within 48 Hours Sepsis New/Unexplained Change in Mental Status Sepsis Action Taken by Nursing 03/20/24 23:42 03/20/24 23:45 03/20/24 23:45 Temperature Temperature Source Pulse Rate 61 62 Pulse Rate from SpO2 Sensor Respiratory Rate 14 15 Blood Pressure 160/93 H Blood Pressure Mean 126 Blood Pressure Position Pulse Oximetry Oxygen Delivery Method Sepsis Recent Fever Within 48 Hours Sepsis New/Unexplained Change in Mental Status Sepsis Action Taken by Nursing 03/20/24 23:57 03/21/24 00:12 03/21/24 00:21 Temperature Temperature Source Pulse Rate 66 60 61 Pulse Rate from SpO2 Sensor Respiratory Rate 17 13 16 Blood Pressure Blood Pressure Mean Blood Pressure Position Pulse Oximetry Oxygen Delivery Method Sepsis Recent Fever Within 48 Hours Sepsis New/Unexplained Change in Mental Status Sepsis Action Taken by Nursing 03/21/24 00:27 03/21/24 00:30 03/21/24 00:33 Temperature Temperature Source Pulse Rate 76 58 L Pulse Rate from SpO2 Sensor Respiratory Rate 17 15 Blood Pressure 169/94 H Blood Pressure Mean 120 Blood Pressure Position Pulse Oximetry Oxygen Delivery Method Sepsis Recent Fever Within 48 Hours Sepsis New/Unexplained Change in Mental Status Sepsis Action Taken by [facility] Medications Current Medication List: was personally reviewed by me Laboratory Data Attestation: I reviewed the patient's lab results. 03/20/24 20:14 03/20/24 20:14 Lab Results 03/20/24 Range/Units 20:14 WBC 6.28 (4.8-10.8) K/ul RBC 4.77 (4.70-6.10) M/uL Hgb 14.4 (14.0-18.0) g/dl Hct 39.7 L (42.0-52.0) % MCV 83.2 (80.0-100.0) fL MCH 30.2 (25.0-34.0) pg MCHC 36.3 H (32.0-36.0) g/dL RDW Std Deviation 37.7 (36.4-46.3) fL RDW Coeff of Sri 12.6 (11.5-14.5) % Plt Count 183 (130-400) K/uL MPV 9.5 (9.4-12.4) fL Immature Gran % (Auto) 0.5 % Neut % (Auto) 84.8 % Lymph % (Auto) 8.9 % Maries % (Auto) 4.5 % Eos % (Auto) 1.0 % Baso % (Auto) 0.3 % Neut # (Auto) 5.33 (1.40-6.50) K/uL Lymph # (Auto) 0.56 L (1.20-3.40) K/uL Maries # (Auto) 0.28 (0.11-0.59) K/uL Eos # (Auto) 0.06 (0.00-0.50) K/uL Baso # (Auto) 0.02 (0.00-0.20) K/uL Immature Gran # (Auto) 0.03 (0.01-0.20) K/uL PT 10.6 (9.0-12.0) Seconds INR 1.0 (0.9-1.1) APTT 26 (21-31) Seconds PTT Ratio 1.0 Sodium 138 (136-145) mmol/L Potassium 4.2 (3.5-5.1) mmol/L Chloride 104 (98-107) mmol/L Carbon Dioxide 29 (21-32) mmol/L Anion Gap 5 (3-11) BUN 17 (6-23) mg/dl Creatinine 0.86 (0.6-1.4) mg/dl Est Cr Clr Drug Dosing Not Reportable eGFR 106.14 BUN/Creatinine Ratio 19.8 (10-20) Glucose 132 H (70-99(Fasting)) mg/dl Calcium 9.0 (8.6-10.3) mg/dl Magnesium 2.0 (1.7-2.4) mg/dl Total Bilirubin 0.6 (0.2-1.0) mg/dl AST 14 (13-39) U/L ALT 12 (7-52) U/L Alkaline Phosphatase 71 (34-104) U/L Troponin I High Sens 6.1 (0-20) pg/ml Total Protein 7.7 (6.0-8.3) gm/dl Albumin 4.5 (3.4-5.0) gm/dl Globulin 3.2 (2.5-4.0) gm/dl Albumin/Globulin Ratio 1.4 (0.9-2) TSH 0.813 (0.300-4.500) uIu/ml Administered Medications Discontinued Medications Carvedilol (Carvedilol 12.5 Mg Tab) 12.5 mg PO NOW ONE Stop: 03/21/24 00:21 Last Admin: 03/21/24 01:03 Dose: 12.5 mg Documented By: BIB Diphenhydramine HCl (Diphenhydramine 50 Mg/Ml Vial) 12.5 mg IV NOW STA Stop: 03/20/24 20:32 Last Admin: 03/20/24 20:51 Dose: 12.5 mg Documented By: BIB Pantoprazole Sodium 80 mg/ (Dextrose) 120 mls @ 400 mls/hr IV NOW ONE Stop: 03/20/24 21:13 Last Admin: 03/20/24 21:07 Dose: Not Given Documented By: BIB Famotidine (Pepcid 20mg Iv Push) 20 mg in 5 mls @ 2.5 mls/min IV NOW STA Stop: 03/20/24 20:57 Last Admin: 03/20/24 21:07 Dose: Not Given Documented By: BIB Labetalol HCl (Labetalol Hcl Iv 5 Mg/Ml 20ml) 10 mg IV NOW STA Stop: 03/20/24 20:32 Last Admin: 03/20/24 20:40 Dose: 10 mg Documented By: BIB Lorazepam (Lorazepam 1 Mg/1 Ml Syr Ed Inj Use) 0.5 mg IV ONE STA Stop: 03/20/24 20:32 Last Admin: 03/20/24 20:51 Dose: 0.5 mg Documented By: BIB Ondansetron HCl (Ondansetron Inj 2 Mg/Ml 2 Ml Vial) 4 mg IV NOW STA Stop: 03/20/24 20:32 Last Admin: 03/20/24 20:41 Dose: 4 mg Documented By: BIB Sacubitril/Valsartan (Valsartan/Sacubitril 51/49 Mg Tab) 1 tab PO NOW STA Stop: 03/21/24 00:21 Last Admin: 03/21/24 00:56 Dose: Not Given Documented By: BIB Imaging Data Radiologist's Impression: Chest X-Ray 03/20/24 20:14 Exam(s): XR CXR 1 VIEW EXAM: XR Chest, 1 View CLINICAL HISTORY: Chest pain, nonspecific. TECHNIQUE: Frontal view of the chest. COMPARISON: Chest 2 views dated 03/06/2021 FINDINGS: Lungs: No focal consolidation. The pulmonary vasculature demonstrates no significant radiographic abnormality. Pleural space: Unremarkable. No pneumothorax. No large pleural effusion. Heart: Unremarkable. No cardiomegaly. Mediastinum: No significant abnormality identified. The trachea is midline. Bones/joints: Unremarkable. No acute fracture. IMPRESSION: No focal consolidation or acute cardiopulmonary process identified. Electronically signed by: Garret Caldwell MD 03/20/24 21:[address] 03/20/24 20:24 Exam(s): CT HEAD Without Contrast EXAM: CT Head Without Intravenous Contrast CLINICAL HISTORY: fall, high bp. TECHNIQUE: Axial computed tomography images of the head/brain without intravenous contrast. CTDI is 65.5 mGy and DLP is 1100.35 mGy-cm. Automated exposure control was utilized for the study. A dose lowering technique was utilized adhering to the principles of ALARA. COMPARISON: No relevant prior studies available. FINDINGS: Brain: Unremarkable. No hemorrhage. No significant white matter disease. No edema. Ventricles: Unremarkable. No ventriculomegaly. Bones/joints: Unremarkable. No acute fracture. Soft tissues: No significant overlying acute traumatic soft tissue abnormality. No radiopaque foreign body. Sinuses: Unremarkable as visualized. No acute sinusitis. Mastoid air cells: Unremarkable as visualized. No mastoid effusion. IMPRESSION: No acute intracranial process identified. Electronically signed by: Garret Caldwell MD 03/20/24 22:07 PM Discharge Plan Visit Data Chief Complaint: Hypertension Stated Complaint: HYPERTENSION, HIGH BP, NAUSEA, HEADACHE, DIZZY ED Provider: Parrish Summers Discharge Problem: Hypertension, Headache, Dizziness, Vomiting Patient Disposition: Admitted As Inpatient Condition: Fair Forms Stand Alone Forms: [place] Prescriptions Prescriptions: No Action carvedilol 12.5 mg tablet 12.5 mg PO BID eplerenone 25 mg tablet 12.5 mg PO DAILY sacubitril-valsartan [Entresto] 49-51 mg tablet 1 tab PO BID Referrals Referrals: PCP,NO [Physician] - Discharge Problem: Hypertension Qualifiers: Hypertension type: unspecified Qualified Code(s): I10 - Essential (primary) hypertension Headache Qualifiers: Headache type: unspecified Headache chronicity pattern: acute headache I ntractability: not intractable Qualified Code(s): R51.9 - Headache, unspecified Vomiting Qualifiers: Vomiting type: unspecified Nausea presence: with nausea Qualified Code(s): R 11.2 - Nausea with vomiting, unspecified
[2024-03-20] MEDS: LABETALOL HCL IV 5 MG/ML 20ML IV STA (20:40)
[2024-03-20] MEDS: ONDANSETRON INJ 2 MG/ML 2 ML VIAL IV STA (20:41)
[2024-03-20 20:45] LABS: Basophils # (auto) 0.02 K/uL (0.00-0.20); Basophils % (auto) 0.3 %; Eosinophils # (auto) 0.06 K/uL (0.00-0.50); Hematocrit (blood only) 39.7 % (42.0-52.0); Hemoglobin 14.4 g/dl (14.0-18.0); Immature Granulocytes # (auto) 0.03 K/uL (0.01-0.20); Immature Granulocytes % (auto) 0.5 %; Lymphocytes # (auto) 0.56 K/uL (1.20-3.40); Lymphocytes % (auto) 8.9 %; Mean Corpuscular Hemoglobin 30.2 pg (25.0-34.0); Mean Corpuscular Hgb Conc 36.3 g/dL (32.0-36.0); Mean Corpuscular Volume 83.2 fL (80.0-100.0); Mean Platelet Volume 9.5 fL (9.4-12.4); Monocytes # (auto) 0.28 K/uL (0.11-0.59); Monocytes % (auto) 4.5 %; Neutrophils # (auto) 5.33 K/uL (1.40-6.50); Neutrophils % (auto) 84.8 %; Platelet Count 183 K/uL (130-400); RDW Coefficient of Variation 12.6 % (11.5-14.5); RDW Standard Deviation 37.7 fL (36.4-46.3); Red Blood Count 4.77 M/uL (4.70-6.10); White Blood Count 6.28 K/ul (4.8-10.8)
[2024-03-20 20:50] LABS: Alanine Aminotransferase 12 U/L (7-52); Albumin Globulin Ratio 1.4 (0.9-2); Albumin Level 4.5 gm/dl (3.4-5.0); Alkaline Phosphatase 71 U/L (34-104); Anion Gap 5 (3-11); Aspartate Aminotransferase 14 U/L (13-39); BUN Creatinine Ratio 19.8 (10-20); Bilirubin,Total 0.6 mg/dl (0.2-1.0); Blood Urea Nitrogen 17 mg/dl (6-23); Carbon Dioxide 29 mmol/L (21-32); Chloride 104 mmol/L (98-107); Globulin 3.2 gm/dl (2.5-4.0); Glucose 132 mg/dl (70-99(Fasting)); Potassium 4.2 mmol/L (3.5-5.1); Sodium 138 mmol/L (136-145); Total Protein 7.7 gm/dl (6.0-8.3)
[2024-03-20] MEDS: LORazepam 1 MG/1 ML SYR ED Inj Use IV STA (20:51)
[2024-03-20] MEDS: diphenhydrAMINE 50 MG/ML VIAL IV STA (20:51)
[2024-03-20 20:56] LABS: Troponin I High Sensitivity 6.1 pg/ml (0-20)
[2024-03-20 21:05] LABS: Partial Thromboplastin Time 26 Seconds (21-31); Prothrombin Time 10.6 Seconds (9.0-12.0)
[2024-03-20 21:06] LABS: Thyroid Stimulating Hormone 0.813 uIu/ml (0.300-4.500)
[2024-03-20] MEDS: PANTOprazole 80 MG in DEXTROSE 5% 100 ML IV ONE (21:07)
[2024-03-20] MEDS: FAMOTIDINE 20MG IV PUSH 20 MG/5 ML SYR IV STA (21:07)
--- NOTE | 2024-03-20 21:47 | XRay Report ---
Exam(s): XR CXR 1 VIEW EXAM: XR Chest, 1 View CLINICAL HISTORY: Chest pain, nonspecific. TECHNIQUE: Frontal view of the chest. COMPARISON: Chest 2 views dated 03/06/2021 FINDINGS: Lungs: No focal consolidation. The pulmonary vasculature demonstrates no significant radiographic abnormality. Pleural space: Unremarkable. No pneumothorax. No large pleural effusion. Heart: Unremarkable. No cardiomegaly. Mediastinum: No significant abnormality identified. The trachea is midline. Bones/joints: Unremarkable. No acute fracture. IMPRESSION: No focal consolidation or acute cardiopulmonary process identified. Electronically signed by: Garret Caldwell MD 03/20/24 21:46 PM
--- NOTE | 2024-03-20 22:07 | CT Scan Report ---
Exam(s): CT HEAD Without Contrast EXAM: CT Head Without Intravenous Contrast CLINICAL HISTORY: fall, high bp. TECHNIQUE: Axial computed tomography images of the head/brain without intravenous contrast. CTDI is 65.5 mGy and DLP is 1100.35 mGy-cm. Automated exposure control was utilized for the study. A dose lowering technique was utilized adhering to the principles of ALARA. COMPARISON: No relevant prior studies available. FINDINGS: Brain: Unremarkable. No hemorrhage. No significant white matter disease. No edema. Ventricles: Unremarkable. No ventriculomegaly. Bones/joints: Unremarkable. No acute fracture. Soft tissues: No significant overlying acute traumatic soft tissue abnormality. No radiopaque foreign body. Sinuses: Unremarkable as visualized. No acute sinusitis. Mastoid air cells: Unremarkable as visualized. No mastoid effusion. IMPRESSION: No acute intracranial process identified. Electronically signed by: Garret Caldwell MD 03/20/24 22:07 PM
--- NOTE | 2024-03-21 00:41 | History & Physical Report ---
Date of Service March 21, 2024 Assessment & Plan (1) Hypertensive urgency: Plan: 48-year-old male with past medical history significant for hypertension, history of idiopathic cardiomyopathy, history of cirrhosis of liver, polyarthropathy, tobacco use disorder presents with headache, nausea and vertigo and found to have hypertensive urgency. Patient says lights are bothering him. Still has some nausea. Still some headache. Laying down his vertigo is okay. No headache. No sore throat. No cough. No fevers. Today appetite is down. Denies chest pain. Currently resting no shortness of breath. No abdominal pain. Normal bowel and bladder movements. Patient was admitted in February 2021 with hypertensive emergency. At the time admitted to ICU requiring IV nitroglycerin and IV labetalol. Echo showed severe concentric LVH with severe diffuse left ventricular hypokinesis with EF of 25 to 29%. There was a, concern for amyloid cardiomyopathy but amyloid workup was negative. Nuclear stress test was done which was negative for ischemia. And repeat echocardiogram in May 2021 with normalization of EF to 60%. His 24-hour urine and plasma metanephrines levels were also elevated but normal MRI of the abdomen. Currently seems to be on Coreg, eplerenone and Entresto. As per epic he is supposed to also be on hydrochlorothiazide but seems patient not taking. Hypertensive urgency Presented with a blood pressure of 215/130 Received IV labetalol Blood pressure improved to 160s Continue home Coreg eplerenone and Entresto IV labetalol as needed Telemetry Will follow echo Consult cardio in a.m. further recommendations Vertigo Headache Nausea Mostly from above CT head is okay Will also check MRI scan and neurochecks Close monitor DVT prophylaxis Lovenox Disposition Telemetry Full code. History of Present Illness Chief Complaint: Hypotensive urgency, headache, nausea and vertigo Primary Care Provider: Randy Weller DO 48-year-old male with past medical history significant for hypertension, history of idiopathic cardiomyopathy, history of cirrhosis of liver, polyarthropathy, tobacco use disorder presents with headache, nausea and vertigo and found to have hypertensive urgency. Patient says lights are bothering him. Still has some nausea. Still some headache. Laying down his vertigo is okay. No headache. No sore throat. No cough. No fevers. Today appetite is down. Denies chest pain. Currently resting no shortness of breath. No abdominal pa in. Normal bowel and bladder movements. Patient was admitted in February 2021 with hypertensive emergency. At the time admitted to ICU requiring IV nitroglycerin and IV labetalol. Echo showed severe concentric LVH with severe diffuse left ventricular hypokinesis with EF of 25 to 29%. There was a, concern for amyloid cardiomyopathy but amyloid workup was negative. Nuclear stress test was done which was negative for ischemia. And repeat echocardiogram in May 2021 with normalization of EF to 60%. His 24-hour urine and plasma metanephrines levels were also elevated but normal MRI of the abdomen. Currently seems to be on Coreg, eplerenone and Entresto. As per epic he is supposed to also be on hydrochlorothiazide but seems patient not taking. Past medical history. As mentioned above Past surgical history. Colonoscopy and EGD. Social history. . Snuff tobacco. Current alcohol use occasional. No drug use. . Family history. Father had a heart disease in his 40s. Maternal grandfather passed in his 50s from heart disorder. Paternal grandfather passed in 50s from heart disorder. Allergies Allergy/AdvReac Type Severity Reaction Status Date / Time No Known Allergies Allergy Verified 05/21/21 07:36 Home Medications Medication Instructions Recorded Confirmed Type carvedilol 12.5 mg tablet 12.5 mg PO BID 03/21/24 03/21/24 History eplerenone 25 mg tablet 12.5 mg PO DAILY 03/21/24 03/21/24 History sacubitril 49 mg-valsartan 51 mg 1 tab PO BID 03/21/24 03/21/24 History tablet (Entresto) Past Med/Surg History Problem List (Updated 03/21/24 @ 01:19 by Parrish Summers MD) Vomiting (Acute) Dizziness (Acute) Headache (Acute) Hypertension (Acute) Hypertensive urgency Encounter for pre-operative examination DVT prophylaxis Proteinuria Acute HFrEF (heart failure with reduced ejection fraction) Acute decompensated heart failure Hypertensive emergency Elevated troponin (Acute) Alcohol use no use since Feb 2021 per pt Cirrhosis following with [facility] GI Medical History Kidney stones passed on own Hypertension hypertensive emergency with hospitalization, acute HFrEF d/c 03/09/2021, ongoing work-up with [facility] cardio and endocrinology including consideration for pheochromocytoma, outpatient 24 hour urine advised by endo-not yet completed by pt Heart failure hospitalization at [facility] with d/c 03/09/2021, EF 25-29% improved to 49% 03/20/2021, LifeVest, following [facility] cardio Tobacco use disorder Idiopathic cardiomyopathy EF 49% 03/20/2021, 25-59% during acute HFrEF hospitalization at 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 per cardio Surgical History (Updated 05/21/21 @ 07:44 by Rachel Osman, ELAINA) Hx of vasectomy History of esophagogastroduodenoscopy (EGD) History of colonoscopy History of tooth extraction Family History (Updated 05/21/21 @ 07:42 by Rachel Osman RN) Grandmother Diabetes Uncle Diabetes Other Heart disease Social History Smoking Status: Never smoker Tobacco Type: Smokeless Tobacco (Dip or Chew) Second Hand Exposure: No; Do You Dip or Chew Tobacco: Yes; Hx Alcohol Use: Yes Alcohol type: beer Alcohol type Comment: 2 beers 3x/week Hx Substance Use: No Preferred Language: Kazakh Communication Ability: Effective Commercial Technician Required: No Beliefs That Will Affect Care: None marital status: Current Living Situation: Spouse Feels Safe at Home: Yes Assistive Devices: Glasses Review of Systems Review of Systems: All systems reviewed & are unremarkable except as noted in HPI & below Physical Exam Physical Exam: General- Not in acute distress Head- atraumatic Eyes- PERRL, EOMI,no nystagmus seen ENT- oropharynx clear Neck- supple, no JVD. Lungs- clear to auscultation no wheezing or crackles Heart- regular rate and rhythm; no murmur, no gallop. Abdomen- normal bowel sounds, soft, nontender, no distension Extremities- no pretibial edema, no erythema seen Neuro- alert, oriented PERRL, EOMI; no facial palsy; no dysarthria; motor 5/5 bilaterally; no pronator drift, finger nose test normal, normal co ordination of movements, sensations intact, position sense intact Results & Data Results & Data Vital Signs (Past 12 Hours) Vital Signs Temp Pulse Resp BP Pulse Ox O2 Del Method 03/21/24 00:21 61 16 03/21/24 00:12 60 13 03/20/24 23:57 66 17 03/20/24 23:45 160/93 H 03/20/24 23:45 62 15 03/20/24 23:42 61 14 03/20/24 23:40 169/97 H 03/20/24 23:39 70 19 03/20/24 23:35 180/96 H 03/20/24 23:30 69 21 03/20/24 23:30 181/129 H 03/20/24 23:25 172/84 H 03/20/24 23:24 65 17 03/20/24 23:20 155/86 H 03/20/24 23:18 62 17 03/20/24 23:15 67 18 03/20/24 23:15 154/89 H 03/20/24 23:12 65 17 03/20/24 23:10 164/92 H 03/20/24 23:06 65 16 03/20/24 23:05 157/86 H 03/20/24 23:00 163/83 H 03/20/24 22:50 155/80 H 03/20/24 22:45 161/105 H 03/20/24 22:40 179/85 H 03/20/24 22:36 58 L 16 03/20/24 22:35 166/94 H 03/20/24 22:30 158/85 H 03/20/24 22:24 64 17 03/20/24 22:20 179/92 H 03/20/24 22:15 159/87 H 03/20/24 22:15 159/87 H 03/20/24 22:10 171/85 H 03/20/24 22:05 174/100 H 03/20/24 22:00 64 16 172/85 H 03/20/24 21:55 182/86 H 03/20/24 21:35 188/103 H 03/20/24 21:27 58 L 18 03/20/24 21:25 177/89 H 03/20/24 21:24 59 L 17 03/20/24 21:20 182/107 H 03/20/24 21:18 54 L 19 03/20/24 21:15 190/107 H 03/20/24 21:15 61 16 03/20/24 21:12 56 L 19 03/20/24 21:10 200/100 H 03/20/24 21:09 56 L 18 95 03/20/24 21:06 60 19 96 03/20/24 21:05 204/126 H 03/20/24 21:02 98 Room Air 03/20/24 21:02 98 Room Air 03/20/24 21:00 209/113 H 03/20/24 21:00 209/113 H 03/20/24 20:57 50 L 16 96 03/20/24 20:55 216/128 H 03/20/24 20:54 49 L 19 96 03/20/24 20:51 51 L 12 98 03/20/24 20:51 51 L 03/20/24 20:50 181/92 H 03/20/24 20:06 36.8 C 72 16 215/130 H 99 Room Air Diagnostic Findings Laboratory Results WBC 6.28 K/ul (4.8-10.8) 03/20/24 20:14 RBC 4.77 M/uL (4.70-6.10) 03/20/24 20:14 Hgb 14.4 g/dl (14.0-18.0) 03/20/24 20:14 Hct 39.7 % (42.0-52.0) L 03/20/24 20:14 MCV 83.2 fL (80.0-100.0) 03/20/24 20:14 MCH 30.2 pg (25.0-34.0) 03/20/24 20:14 MCHC 36.3 g/dL (32.0-36.0) H 03/20/24 20:14 RDW Std Deviation 37.7 fL (36.4-46.3) 03/20/24 20:14 RDW Coeff of Sri 12.6 % (11.5-14.5) 03/20/24 20:14 Plt Count 183 K/uL (130-400) 03/20/24 20:14 MPV 9.5 fL (9.4-12.4) 03/20/24 20:14 Immature Gran % (Auto) 0.5 % 03/20/24 20:14 Neut % (Auto) 84.8 % 03/20/24 20:14 Lymph % (Auto) 8.9 % 03/20/24 20:14 Meriwether % (Auto) 4.5 % 03/20/24 20:14 Eos % (Auto) 1.0 % 03/20/24 20:14 Baso % (Auto) 0.3 % 03/20/24 20:14 Neut # (Auto) 5.33 K/uL (1.40-6.50) 03/20/24 20:14 Lymph # (Auto) 0.56 K/uL (1.20-3.40) L 03/20/24 20:14 Meriwether # (Auto) 0.28 K/uL (0.11-0.59) 03/20/24 20:14 Eos # (Auto) 0.06 K/uL (0.00-0.50) 03/20/24 20:14 Baso # (Auto) 0.02 K/uL (0.00-0.20) 03/20/24 20:14 Immature Gran # (Auto) 0.03 K/uL (0.01-0.20) 03/20/24 20:14 PT 10.6 Seconds (9.0-12.0) 03/20/24 20:14 INR 1.0 (0.9-1.1) 03/20/24 20:14 APTT 26 Seconds (21-31) 03/20/24 20:14 PTT Ratio 1.0 03/20/24 20:14 Sodium 138 mmol/L (136-145) 03/20/24 20:14 Potassium 4.2 mmol/L (3.5-5.1) 03/20/24 20:14 Chloride 104 mmol/L (98-107) 03/20/24 20:14 Carbon Dioxide 29 mmol/L (21-32) 03/20/24 20:14 Anion Gap 5 (3-11) 03/20/24 20:14 BUN 17 mg/dl (6-23) 03/20/24 20:14 Creatinine 0.86 mg/dl (0.6-1.4) 03/20/24 20:14 Est Cr Clr Drug Dosing Not Reportable 03/20/24 20:14 eGFR 106.14 03/20/24 20:14 BUN/Creatinine Ratio 19.8 (10-20) 03/20/24 20:14 Glucose 132 mg/dl (70-99(Fasting)) H 03/20/24 20:14 Calcium 9.0 mg/dl (8.6-10.3) 03/20/24 20:14 Magnesium 2.0 mg/dl (1.7-2.4) 03/20/24 20:14 Total Bilirubin 0.6 mg/dl (0.2-1.0) 03/20/24 20:14 AST 14 U/L (13-39) 03/20/24 20:14 ALT 12 U/L (7-52) 03/20/24 20:14 Alkaline Phosphatase 71 U/L (34-104) 03/20/24 20:14 Troponin I High Sens 6.1 pg/ml (0-20) 03/20/24 20:14 Total Protein 7.7 gm/dl (6.0-8.3) 03/20/24 20:14 Albumin 4.5 gm/dl (3.4-5.0) 03/20/24 20:14 Globulin 3.2 gm/dl (2.5-4.0) 03/20/24 20:14 Albumin/Globulin Ratio 1.4 (0.9-2) 03/20/24 20:14 TSH 0.813 uIu/ml (0.300-4.500) 03/20/24 20:14 Impressions Chest X-Ray 03/20/24 20:14 Exam(s): XR CXR 1 VIEW EXAM: XR Chest, 1 View CLINICAL HISTORY: Chest pain, nonspecific. TECHNIQUE: Frontal view of the chest. COMPARISON: Chest 2 views dated 03/06/2021 FINDINGS: Lungs: No focal consolidation. The pulmonary vasculature demonstrates no significant radiographic abnormality. Pleural space: Unremarkable. No pneumothorax. No large pleural effusion. Heart: Unremarkable. No cardiomegaly. Mediastinum: No significant abnormality identified. The trachea is midline. Bones/joints: Unremarkable. No acute fracture. IMPRESSION: No focal consolidation or acute cardiopulmonary process identified. Electronically signed by: Garret Caldwell MD 03/20/24 21:[address] 03/20/24 20:24 Exam(s): CT HEAD Without Contrast EXAM: CT Head Without Intravenous Contrast CLINICAL HISTORY: fall, high bp. TECHNIQUE: Axial computed tomography images of the head/brain without intravenous contrast. CTDI is 65.5 mGy and DLP is 1100.35 mGy-cm. Automated exposure control was utilized for the study. A dose lowering technique was utilized adhering to the principles of ALARA. COMPARISON: No relevant prior studies available. FINDINGS: Brain: Unremarkable. No hemorrhage. No significant white matter disease. No edema. Ventricles: Unremarkable. No ventriculomegaly. Bones/joints: Unremarkable. No acute fracture. Soft tissues: No significant overlying acute traumatic soft tissue abnormality. No radiopaque foreign body. Sinuses: Unremarkable as visualized. No acute sinusitis. Mastoid air cells: Unremarkable as visualized. No mastoid effusion. IMPRESSION: No acute intracranial process identified. Electronically signed by: Garret Caldwell MD 03/20/24 22:07 PM ECG Additional Comments: ECG. Normal sinus rhythm rate 66. Left axis deviation. T wave abnormality in lateral leads. QTc 492 Code Status & VTE Plan VTE Prophylaxis Plan VTE Prophylaxis will be ordered: Yes
[2024-03-21] MEDS: VALSARTAN/SACUBITRIL 51/49 MG TAB PO STA (00:56)
--- OUTSIDE RECORDS SUMMARY | 2024-03-21 01:00 | External Medical Summary | Summary of Care ---
Author Name Unknown Organization [facility] [address] [address] Phone [phone] Care Team Providers Care Director [employer] Name Role Phone Unavailable Primary Care Provider Unavailabl e Reason for Visit * Reason Onset Date Comments Forms Request 09/29/2023 Encounter Details Date Type Department Care Team (Late st Contact Info) Description 09/29/2023 Telephone Cardiology, [facility] [address] [place] [id number] Randy Weller, [address] [place] [phone] Forms Request Allergies No known active allergiesdocumented as of this encounter (statuses as of 09/29/2023) Medications Medication Sig Dispensed Refills Start Date End Date Status hydroCHLOROthiazid e 25 MG Oral Tablet (Hydrodiuril) Take 1 Tablet by mouth in the morning. 31 Tablet 5 03/15/2022 Active Additional Information Patient taking differently:25 mg Oral Daily(AM),Indications: using as needed, Reported on 08/29/2023 Entresto 49-51 MG Oral Tablet (sacubitril-valsar zhong 49-51 mg per tab)Indications:HT N, goal below 130/80,Cardiomyopa thy due to hypertension, with heart failure (HCC) Take 1 Tablet by mouth in the morning and 1 Tablet before bedtime. 180 Tablet 3 02/08/2023 Active Carvedilol 12.5 MG Oral Tablet (Coreg)Indications :HTN, goal below 130/80,Cardiomyopa thy due to hypertension, with heart failure (HCC) Take 1 Tablet by mouth 2 times a day with morning and evening meals. 180 Tablet 3 08/17/2023 Active Eplerenone 25 MG Oral Tablet (Inspra) Take 1 Tablet by mouth in the morning. 90 Tablet 3 08/30/2023 Active documented as of this encounter (statuses as of 09/29/2023) Active Problems Problem Noted Date Diagnosed Date Heart failure 07/21/2023 Idiopathic cardiomyopathy 03/11/2021 Cirrhosis of liver 03/11/2021 Polyarthropathy or polyarthritis of multiple sit es 12/19/2014 Tobacco use disorder 11/15/2008 documented as of this encounter (statuses as of 09/29/2023) Resolved Problems Problem Noted Date Diagnosed Date Resolved Date NO KNOWN PROBLEMS 12/17/2014 documented as of this encounter (statuses as of 09/29/2023) Immunizations Name Administration Dates Next Due TDAP, Age 7 and older, IM (Adacel) 11/08/2007 documented as of this encounter Social History Tobacco Use Types Packs/Day Years Used Date Smoking Tobacco: Never Cigarettes Smokeless Tobacco: Current Snuff Comments:2 cans per week Alcohol Use Standard Drinks/Week Comments Yes 8.3 (1 standard drink = 0.6 oz p ure alcohol) maybe one a day Sex and Gender Information Value Date Recorded Sex Assigned at Male 07/20/2023 6:32 PM EDT Gender Identity Male 07/20/2023 6:32 PM EDT Sexual Orientation Not on file Job Start Date Occupation Industry Not on file Not on file Not on file documented as of this encounter Miscellaneous Notes * Telephone Encounter - Elana Sears CMA - 09/29/2023 1:24 PM EDT Form received from [employer] regarding Request for Medical Certification. Form completed by Dr. Weller and faxed to number provided. ): Successful confirmation. Attempted to contact patient to notify, no answer. Left brief message on unidentified VM for patient to return call. documented in this encounter Plan of Treatment Upcoming Encounters Date Type Department Care Team (Late st Contact Info) Description 10/11/2023 10:00 AM EDT Office Visit Cardiology, [facility] [address] [place] [phone] Randy Weller, [address] [place] [phone] Scheduled Procedures Name Priority Associated Diagnoses Date/Ti me COLONOSCOPY FLEXIBLE PROXIMAL DIAGNOSTIC Recall Colon cancer screening Health Maintenance Due Date Last Done Comments Pneumococcal Vaccine: Pediatrics (0 to 5 Years) and At-Risk Patients (6 to 64 Years) (1 of 2 - PCV) 1980 Hepatitis B Vaccine (1 of 3 - 19+ 3-dose series) 1993 Depression Screening 12/25/2013 12/25/2012 DTaP,Tdap,and Td Vaccines (2 - Td or Tdap) 11/07/2017 11/08/2007 Cologuard 11/13/2019 Fecal Occult Blood Test 11/13/2019 12/06/2014 Sigmoidoscopy 11/13/2019 COVID-19 Vaccine ( - 2022-2 4 season) 2022 Influenza Vaccine (FLU shot) (#1) 2023 Colonoscopy 12/10/2024 12/10/2014, 12/10/2014 Colorectal Cancer Screening 12/10/2024 Lipid Panel 08/28/2028 08/29/2023, 12/19/2012 RETIRED - COLONOSCOPY EVERY 10 YEARS,AGES 18-50 Discontinued 12/10/2014, 12/10/2014 HPV (Gardasil) Vaccine Aged Out No lo nger eligible based on patient's age to complete this topic MENINGOCOCCAL (MENACTRA/MENVEO) Aged Out No longer eligible based on patient's age to complete this topic documented as of this encounter Medical Devices Not on filedocumented as of this encounter
--- OUTSIDE RECORDS SUMMARY | 2024-03-21 01:00 | External Medical Summary | Summary of Care ---
Author Name Unknown Organization [facility] Address [address] [place] [address] Phone [phone] Care Team Providers Care Cardio Tech Name Role Phone Unavailable Primary Care Provider Unavailabl e Reason for Visit * Reason Onset Date Comments Appointment 08/29/2023 Encounter Details Date Type Department Care Team (Late st Contact Info) Description 08/29/2023 Telephone Cardiology, [facility] [address] [place] [phone] Randy Weller, [address] [place] [phone] Appointment Allergies No known active allergiesdocumented as of this encounter (statuses as of 11/28/2023) Medications Medication Sig Dispensed Refills Start Date [...] evening meals. 180 Tablet 3 08/17/2023 Active documented as of this encounter (statuses as of 11/28/2023) Active Problems Problem Noted Date Diagnosed Date Heart failure 07/21/2023 Idiopathic cardiomyopathy 03/11/2021 Cirrhosis of liver 03/11/2021 Polyarthropathy or polyarthritis of multiple sit es 12/19/2014 Tobacco use disorder 11/15/2008 documented as of this encounter (statuses as of 11/28/2023) Resolved Problems Problem Noted Date Diagnosed Date Resolved Date NO KNOWN PROBLEMS 12/17/2014 documented as of this encounter (statuses as of 11/28/2023) Immunizations Name Administration Dates Next Due TDAP, [...] encounter Miscellaneous Notes * Telephone Encounter - Luther Banks OSA - 08/29/2023 12:09 PM EDT Patient is ordered a cardiac study, please assist patient to schedule, thank you. NM MYOCARDIAL PERFUSION SPECT MULTIPLE STUDIES [[id number]] (Order [id number]) Provider requests this be done MICHELLE. Patients FU appt with Dr. Weller is on, Tuesday, 10/10 and his ECHO is on 09/12 Thank you. documented in this encounter Plan of Treatment Scheduled Procedures Name Priority Associated Diagnoses Date/Ti me COLONOSCOPY FLEXIBLE PROXIMAL DIAGNOSTIC Recall Colon cancer screening Health Maintenance Due Date Last Done Comments Pneumococcal Vaccine: Pediatrics (0 to 5 Years) and At-Risk Patients (6 to 64 Years) (1 of 2 - PCV) 1980 Hepatitis B Vaccine (1 of 3 - 19+ 3-dose series) 1993 Depression Screening 12/25/2013 12/25/2012 DTap/Tdap Vaccines (2 - Td o r Tdap) 11/07/2017 11/08/2007 Cologuard 11/13/2019 Fecal Occult Blood Test 11/13/2019 12/06/2014 Sigmoidoscopy 11/13/2019 COVID-19 Vaccine (1 - 2023-2 5 season) 2023 Influenza Vaccine (FLU shot) (#1) 2023 Colonoscopy [...]
[2024-03-21] MEDS: carvediloL 12.5 MG TAB PO ONE (01:03)
[2024-03-21] MEDS: GADOBUTROL 65ML VIAL IV ONE (01:40)
[2024-03-21] MEDS ORDERED: LABETALOL HCL IV 5 MG/ML 20ML IV PRN (02:56)
[2024-03-21] MEDS ORDERED: NITROGLYCERIN SL 0.4 MG/TAB TAB SL PRN (02:56)
[2024-03-21] MEDS ORDERED: Patient's HEIGHT &/or WEIGHT Needed SCH (03:15)
[2024-03-21] MEDS ORDERED: Nursing to Pharmacy Communication SCH (03:30)
--- NOTE | 2024-03-21 04:44 | Magnetic Resonance Report ---
EXAM: MR brain wo/w con CLINICAL HISTORY: fell yesterday morning. hypertension. HTN 191/107. dizziness. headache. TECHNIQUE: MRI of the brain was performed with and without 10cc gadavist intravenous contrast administration. Sequences obtained include pre-contrast and post-contrast T1-weighted, T2-weighted, FLAIR (Fluid-Attenuated Inversion Recovery), DWI (Diffusion-Weighted Imaging), and ADC (Apparent Diffusion Coefficient) sequences. COMPARISON: None. FINDINGS: Brain Parenchyma: No evidence of acute infarction or hemorrhage. Multiple foci and small areas of an altered signal are seen involving the bilateral [id number] and left temporal subcortical and periventricular white matter and jolene, eliciting high T2/FLAIR signal intensities, while inconspicuous on T1 WIS, no perifocal edema or mass effect. no corresponding diffusion restriction with isointense and high ADC denoting chronicity. Bilateral deep white matter periventricular confluent areas and sheets of bright T2 and FLAIR signal are seen denoting small arterial disease. Few bilateral cerebellar and cerebral corticomedullary junction tiny foci of SWI blooming suggest hypertensive angiopathy. Post-Contrast Findings: No abnormal enhancement of the brain parenchyma or meninges. Ventricles and Sulci: The ventricular system is within normal limits without evidence of hydrocephalus. Sulci and cisternal spaces are age-appropriate. Brainstem and Cerebellum: Normal appearance of the brainstem and cerebellum without focal lesions or abnormal enhancement. Vessels: Intracranial vessels appear normal without evidence of vascular malformations or aneurysms. Skull and Calvarium: No evidence of skull vault lesions or abnormal marrow signals within the calvarium. Incidental noted of marked left maxillary antrum polypoidal mucosal thickening. IMPRESSION: 1. No evidence of acute infarction or hemorrhage. 2. Bilateral cerebral periventricular and deep subcortical white matter foci and patches of altered signal, chronic microvascular ischemic changes or underlying vasculitis etiology may be considered, needs clinical and lab correlation. 3. Few bilateral cerebellar and cerebral corticomedullary junction tiny foci of SWI blooming suggest hypertensive angiopathy. 4. No abnormal enhancement of the brain parenchyma or meninges. Electronically signed by Sandhya Lama 03-21-2024 04:43 AM
[2024-03-21] MEDS: ACETAMINOPHEN 325 MG TAB PO PRN (04:49)
[2024-03-21] MEDS: ONDANSETRON INJ 2 MG/ML 2 ML VIAL IV PRN (04:49)
[2024-03-21 06:31] LABS: Basophils # (auto) 0.01 K/uL (0.00-0.20); Basophils % (auto) 0.2 %; Eosinophils # (auto) 0.07 K/uL (0.00-0.50); Eosinophils % (auto) 1.3 %; Hematocrit (blood only) 36.9 % (42.0-52.0); Hemoglobin 13.4 g/dl (14.0-18.0); Immature Granulocytes # (auto) 0.02 K/uL (0.01-0.20); Immature Granulocytes % (auto) 0.4 %; Lymphocytes % (auto) 16.6 %; Mean Corpuscular Hemoglobin 30.9 pg (25.0-34.0); Mean Corpuscular Hgb Conc 36.3 g/dL (32.0-36.0); Mean Corpuscular Volume 85.2 fL (80.0-100.0); Mean Platelet Volume 9.8 fL (9.4-12.4); Monocytes # (auto) 0.46 K/uL (0.11-0.59); Monocytes % (auto) 8.5 %; Neutrophils # (auto) 3.97 K/uL (1.40-6.50); Platelet Count 171 K/uL (130-400); RDW Coefficient of Variation 12.7 % (11.5-14.5); RDW Standard Deviation 38.6 fL (36.4-46.3); Red Blood Count 4.33 M/uL (4.70-6.10); White Blood Count 5.43 K/ul (4.8-10.8)
[2024-03-21 06:46] LABS: BUN Creatinine Ratio 17.6 (10-20); Calcium 9.2 mg/dl (8.6-10.3); Creatinine Clr Calc Pharmacy 108.7 ml/min; Potassium 4.1 mmol/L (3.5-5.1)
[2024-03-21 06:53] LABS: Troponin I High Sensitivity 7.8 pg/ml (0-20)
[2024-03-21] MEDS: VALSARTAN/SACUBITRIL 51/49 MG TAB PO SCH (08:51)
[2024-03-21] MEDS: ENOXAPARIN INJ 40 MG/0.4 ML SYR SQ SCH (08:54)
--- NOTE | 2024-03-21 09:09 | Cardiology Consultation ---
Date of Consultation March 21, 2024 Assessment & Plan (1) Hypertensive urgency: (2) Dizziness: (3) Hypertensive heart disease: Plan Patient admitted to [facility] with symptoms of hypertensive urgency, BP > 190/100 at home with dizziness, headache, vomiting. Patient non complaint with home medications including several doses of Entresto and diuretics (HCTZ/eplerenone) Continue carvedilol 12.5 mg BID. HR's 55-65 on telemetry and will not increase. Increase Entresto to 103/97 mg BID. Consider adding amlodipine if needed. Monitor BP. Patient wishes to avoid diuretics due to urination. He would likely not take them at home again. Since admission, labs unremarkable including HS troponin. Head CT was negative for acute process. Brain MRI with findings of microvascular disease and possible hypertensive angiopathy. Neuro was consulted. His Dizziness occurs with positional changes/head rotation. Consider treatment for vertigo as well. Further recommendations pending response to above medicaiton adjustments. Will follow. Case discussed with Dr. Ponce Reddy spent a total of 60 minutes on the date of service in preparation, delivery, and documentation of the care provided to this patient, excluding any time spent in the performance of separately billed services. Liza Mello PA-C Department of Cardiology, [facility] This chart was completed in part utilizing Speech Voice Recognition Software. Grammatical errors, random word insertions, pronoun errors, and incomplete sentences are an occasional consequence of this system due to software limitations, ambient noise, and hardware issues. Any formal questions or concerns about the content, text, or information contained within the body of this dictation should be directly addressed to the provider for clarification. Supervising Physician Co-Signing Physician Notes Patient was seen and evaluated personally. Full assessment and plan as outlined by advanced provider as above. Care and management discussed in detail and recommendations personally endorsed. 48-year-old male with complex history of hypertensive disease, past hypertensive urgency, nonischemic cardiomyopathy presents on referral with dizziness and mar kedly elevated blood pressures. Currently today with positional changes of vertigo question standard vertigo versus cerebellar injury. Neurology evaluation pending. Plans for hypertension management as above. Cardiology will continue to follow History of Present Illness Reason for Consultation: HTN Urgency Requesting Physician: Sofia Gaytan History of Present Illness Patient is a 48 year old male referred to ER yesterday after his called the cardiology clinic with concerns regarding patient's BP. BP > 190/100 with associated headache, dizziness, nausea and vomiting. Upon arrival to the ER, he was treated with IV labetalol and oral home medications resumed including carvedilol 12.5 mg BID and Entresto 50 mg dose BID. Patient was also to be taking HCTZ and eplerenone at home. But compliance was questioned on admission due to urination. He reportedly stopped HCTZ several months ago. He reports only taking eplerenone 'as needed' which was rare. He wishes to avoid diuretic therapy due to urination and his job constraints. Head CT was unremarkable on admission. Labs also unremarkable. HS troponin negative x2. EKG demonstrated NSR with T wave inversion in lateral leads, but this is unchan ged from outpatient EKG in August 2023. Chest xray was clear. Brain MRI completed this morning with concerns regarding microvascular changes and possible hypertensive angiopathy. At time of consult, patient admits to ongoing dizziness/lightheadedness with positional changes and head movements. He has no symptoms laying on his left side, but as he rolls to his right side, the room begins to spin with recurrent symptoms. His headache has improved from admission. BP trending downward but remains above goal. He denies chest pain or SOB. No palpitations. No orthopnea, PND or edema.. Problem List: 1. Hypertension with history of hypertensive emergency, 02/2021 2. 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 Severe concentric LVH - negative amyloid workup a. 24 hr urine and plasma metanephrine levels elevated, normal MRI of the abdomen, PYP full body scan negative for TTR amyloid 4. ETOH use, 12 pk per day- quit February 2020 Allergies Allergy/AdvReac Type Severity Reaction Status Date / Time No Known Allergies Allergy Verified 05/21/21 07:36 Home Medications Medication Instructions Recorded Confirmed Type carvedilol 12.5 mg tablet 12.5 mg PO BID 03/21/24 03/21/24 History eplerenone 25 mg tablet 12.5 mg PO DAILY 03/21/24 03/21/24 History sacubitril 49 mg-valsartan 51 mg 1 tab PO BID 03/21/24 03/21/24 History tablet (Entresto) Patient History Medical History Kidney stones passed on own Hypertension hypertensive emergency with hospitalization, acute [facility] d/c 03/09/2021, ongoing work-up with [facility] cardio and endocrinology including consideration for pheochromocytoma, outpatient 24 hour urine advised by endo-not yet completed by pt Heart failure hospitalization at [facility] with d/c 03/09/2021, EF 25-29% improved to 49% 03/20/2021, LifeVest, following [facility] cardio Tobacco use disorder Idiopathic cardiomyopathy EF 49% 03/20/2021, 25-59% during acute [facility] hospitalization at [facility] d/c 03/09/2021: most suggestive of nonischemic, hypertension related cardiomyopathy with potential TTR amyloid per cardio Surgical History (Updated 05/21/21 @ 07:44 by Rachel Osman, ELAINA) Hx of vasectomy History of esophagogastroduodenoscopy (EGD) History of colonoscopy History of tooth extraction Family History (Updated 05/21/21 @ 07:42 by Rachel Osman, ELAINA) Grandmother Diabetes Uncle Diabetes Other Heart disease Social History Smoking Status: Never smoker Tobacco Type: Smokeless Tobacco (Dip or Chew) Second Hand Exposure: No; Do You Dip or Chew Tobacco: Yes; Hx Alcohol Use: Yes Alcohol type: beer Alcohol type Comment: 2 beers 3x/week Hx Substance Use: No Preferred Language: Greek Communication Ability: Effective Grain Elevator Man Required: No Beliefs That Will Affect Care: None marital status: Current Living Situation: Spouse Feels Safe at Home: Yes Assistive Devices: Glasses Review of Systems Review of Systems: All systems reviewed & are unremarkable except as noted in HPI & below Physical Exam Constitutional: WD/WN, vitals as above average body habitus; no acute distress Neck: normal visual inspection Respiratory: normal respiratory effort Auscultation: lungs clear to auscultation bilaterally Cardiovascular: Rate/Rhythm: regular rate and regular rhythm Heart Sounds: normal S1, normal S2 and + murmur (II/ systolic murmur LSB) Vessels: no JVD Extremities: no edema Gastrointestinal (Abdomen): normal bowel sounds, soft, nontender, no hepatosplenomegaly Neurologic: PERRL, EOMI, accommodation nl, no face palsy, no dysarthria Psychiatric: A+Ox3, euthymic affect Results & Data Vital Signs (Past 12 Hours) Vital Signs Temp Pulse Pulse Resp BP BP BP 03/21/24 08:27 36.7 C 69 17 173/95 H 03/21/24 04:50 36.6 C 64 18 177/99 H 03/21/24 03:14 03/21/24 03:14 68 20 163/84 H 03/21/24 02:08 70 20 178/94 H 03/21/24 00:33 58 L 15 03/21/24 00:30 169/94 H 03/21/24 00:27 76 17 03/21/24 00:21 61 16 03/21/24 00:12 60 13 03/20/24 23:57 66 17 03/20/24 23:45 160/93 H 03/20/24 23:45 62 15 03/20/24 23:42 61 14 03/20/24 23:40 169/97 H 03/20/24 23:39 70 19 03/20/24 23:35 180/96 H 03/20/24 23:30 69 21 03/20/24 23:30 181/129 H 03/20/24 23:25 172/84 H 03/20/24 23:24 65 17 03/20/24 23:20 155/86 H 03/20/24 23:18 62 17 03/20/24 23:15 67 18 03/20/24 23:15 154/89 H 03/20/24 23:12 65 17 03/20/24 23:10 164/92 H 03/20/24 23:06 65 16 03/20/24 23:05 157/86 H 03/20/24 23:00 163/83 H 03/20/24 22:50 155/80 H 03/20/24 22:45 161/105 H 03/20/24 22:40 179/85 H 03/20/24 22:36 58 L 16 03/20/24 22:35 166/94 H 03/20/24 22:30 158/85 H 03/20/24 22:24 64 17 03/20/24 22:20 179/92 H 03/20/24 22:15 159/87 H 03/20/24 22:15 159/87 H 03/20/24 22:10 171/85 H 03/20/24 22:05 174/100 H 03/20/24 22:00 64 16 172/85 H 03/20/24 21:55 182/86 H 03/20/24 21:35 188/103 H 03/20/24 21:27 58 L 18 03/20/24 21:25 177/89 H 03/20/24 21:24 59 L 17 03/20/24 21:20 182/107 H 03/20/24 21:18 54 L 19 03/20/24 21:15 190/107 H 03/20/24 21:15 61 16 03/20/24 21:12 56 L 19 03/20/24 21:10 200/100 H 03/20/24 21:09 56 L 18 03/20/24 21:06 60 19 03/20/24 21:05 204/126 H 03/20/24 21:02 03/20/24 21:02 Pulse Ox Pulse Ox O2 Del Method O2 Del Method 03/21/24 08:27 97 Room Air 03/21/24 04:50 97 Room Air 03/21/24 03:14 92 Room Air 03/21/24 03:14 92 Room Air 03/21/24 02:08 98 Room Air 03/21/24 00:33 03/21/24 00:30 03/21/24 00:27 03/21/24 00:21 03/21/24 00:12 03/20/24 23:57 03/20/24 23:45 03/20/24 23:45 03/20/24 23:42 03/20/24 23:40 03/20/24 23:39 03/20/24 23:35 03/20/24 23:30 03/20/24 23:30 03/20/24 23:25 03/20/24 23:24 03/20/24 23:20 03/20/24 23:18 03/20/24 23:15 03/20/24 23:15 03/20/24 23:12 03/20/24 23:10 03/20/24 23:06 03/20/24 23:05 03/20/24 23:00 03/20/24 22:50 03/20/24 22:45 03/20/24 22:40 03/20/24 22:36 03/20/24 22:35 03/20/24 22:30 03/20/24 22:24 03/20/24 22:20 03/20/24 22:15 03/20/24 22:15 03/20/24 22:10 03/20/24 22:05 03/20/24 22:00 03/20/24 21:55 03/20/24 21:35 03/20/24 21:27 03/20/24 21:25 03/20/24 21:24 03/20/24 21:20 03/20/24 21:18 03/20/24 21:15 03/20/24 21:15 03/20/24 21:12 03/20/24 21:10 03/20/24 21:09 95 03/20/24 21:06 96 03/20/24 21:05 03/20/24 21:02 98 Room Air 03/20/24 21:02 98 Room Air Laboratory Results Cardiac Enzymes 03/20/24 03/21/24 Range/Units 20:14 05:29 AST 14 (13-39) U/L Troponin I High Sens 6.1 7.8 (0-20) pg/ml Coagulation 03/20/24 Range/Units 20:14 PT 10.6 (9.0-12.0) Seconds APTT 26 (21-31) Seconds CBC 03/20/24 03/21/24 Range/Units 20:14 05:29 WBC 6.28 5.43 (4.8-10.8) K/ul RBC 4.77 4.33 L (4.70-6.10) M/uL Hgb 14.4 13.4 L (14.0-18.0) g/dl Hct 39.7 L 36.9 L (42.0-52.0) % Plt Count 183 171 (130-400) K/uL Neut # (Auto) 5.33 3.97 (1.40-6.50) K/uL Lymph # (Auto) 0.56 L 0.90 L (1.20-3.40) K/uL [place] # (Auto) 0.28 0.46 (0.11-0.59) K/uL Eos # (Auto) 0.06 0.07 (0.00-0.50) K/uL Baso # (Auto) 0.02 0.01 (0.00-0.20) K/uL Comprehensive Metabolic Panel 03/20/24 03/21/24 Range/Units 20:14 05:29 Sodium 138 139 (136-145) mmol/L Potassium 4.2 4.1 (3.5-5.1) mmol/L Chloride 104 103 (98-107) mmol/L Carbon Dioxide 29 29 (21-32) mmol/L BUN 17 18 (6-23) mg/dl Creatinine 0.86 1.02 (0.6-1.4) mg/dl Glucose 132 H 115 H (70-99(Fasting)) mg/dl Calcium 9.0 9.2 (8.6-10.3) mg/dl AST 14 (13-39) U/L ALT 12 (7-52) U/L Alkaline Phosphatase 71 (34-104) U/L Total Protein 7.7 (6.0-8.3) gm/dl Albumin 4.5 (3.4-5.0) gm/dl Intake and Output 03/20/24 03/21/24 03/21/24 22:59 06:59 14:59 Other: Other Intake Source sips Weight 102.9 kg Weight Measurement Method Built in [facility] Diagnostic Findings Telemetry reviewed: sinus bradycardia and NSR in the 55-65 bmp range. No concerning arrhythmias. EKG reviewed from 03/20/24: NSR LAD T wave inversion in I, AVL Voltage criteria for LVH Compared with outpatient EKG in August 2023 - Stable findings Chest X-Ray 03/20/24 20:14 IMPRESSION: No focal consolidation or acute cardiopulmonary process identified. Head CT 03/20/24 20:24 IMPRESSION: No acute intracranial process identified. Brain MRI 03/21/24 00:30 IMPRESSION: 1. No evidence of acute infarction or hemorrhage. 2. Bilateral cerebral periventricular and deep subcortical white matter foci and patches of altered signal, chronic microvascular ischemic changes or underlying vasculitis etiology may be considered, needs clinical and lab correlation. 3. Few bilateral cerebellar and cerebral corticomedullary junction tiny foci of SWI blooming suggest hypertensive angiopathy. 4. No abnormal enhancement of the brain parenchyma or meninges. Prior outpatient echo reviewed from August 2023: Interpretation Summary The examination is adequate to evaluate the referral indication. The global longitudinal strain (GLS) is - 11.8 %. Normal left ventricular systolic function is suggested if GLS is -14% to -30%. The LV wall thickness is severely increased (concentric). The left ventricular diastolic function is mildly abnormal (grade I). Mild tricuspid regurgitation is present. There is no evidence of pulmonary hypertension. A small anterior loculated pericardial effusion is present. Cardiac tamponade is absent. The qualitative LV ejection fraction is 50-54% (normal). Nuclear stress test report reviewed dated August 2023: Interpretation Summary [id number]: Pharmacologic Nuclear Stress Spect The left ventricle is moderately dilated at rest. There is global decrease in wall motion. The LV ejection fraction is calculated at 47%. Lexiscan nuclear cardiac stress test negative for ischemia. Medications Administered Current Inpatient Medications Acetaminophen (Acetaminophen 325 Mg Tab) 650 mg PO Q4H PRN PRN Reason: Pain or Fever Stop: 04/20/24 02:55 Last Admin: 03/21/24 04:49 Dose: 650 mg Carvedilol (Carvedilol 12.5 Mg Tab) 12.5 mg PO BID [facility] Stop: 04/20/24 08:59 Last Admin: 03/21/24 10:04 Dose: 12.5 mg Enoxaparin Sodium (Enoxaparin Inj 40 Mg/0.4 Ml Syr) 40 mg SQ Q24H [facility] Stop: 04/20/24 08:59 Last Admin: 03/21/24 08:54 Dose: Not Given Labetalol HCl (Labetalol Hcl Iv 5 Mg/Ml 20ml) 10 mg IV Q4H PRN PRN Reason: Hypertension Stop: 04/20/24 02:55 Miscellaneous (Order Awaiting Action-Eplerenone) 1 each N/A QS [facility] Stop: 04/20/24 07:59 Last Admin: 03/21/24 10:04 Dose: Not Given Nitroglycerin (Nitroglycerin Sl 0.4 Mg/Tab Tab) 0.4 mg SL Q5M PRN PRN Reason: Chest Pain Stop: 04/20/24 02:55 Ondansetron HCl (Ondansetron Inj 2 Mg/Ml 2 Ml Vial) 4 mg IV Q6H PRN PRN Reason: Nausea Stop: 04/20/24 02:55 Last Admin: 03/21/24 04:49 Dose: 4 mg Sacubitril/Valsartan (Valsartan/Sacubitril 103/97mg Tab) 1 tab PO BID [facility] Stop: 04/20/24 20:59
[2024-03-21 09:11] LABS: C Reactive Protein 0.57 mg/dl (0-0.5)
[2024-03-21] MEDS: carvediloL 12.5 MG TAB PO SCH (10:04)
[2024-03-21] MEDS: VALSARTAN/SACUBITRIL 51/49 MG TAB PO ONE (10:28)
[2024-03-21 10:44] LABS: Appearance Urine Cloudy (Clear); Bacteria Urine Automated None Seen (None Seen); Bilirubin Urine Negative (Negative); Blood Urine Negative (Negative); Color Urine Dark Yellow; Epithelial Cell Urine Auto 0-2 /hpf (0-2); Glucose Urine UA Negative (Negative); Ketones Urine Negative (Negative); Leukocyte Esterase Urine Negative (Negative); Nitrite Urine Negative (Negative); Protein Urine Trace (Negative); RBC Urine Automated 0-2 /hpf (0-2); Specific Gravity Urine 1.041 (1.000-1.030); Urobilinogen Urine Negative (Negative); WBC Urine Automated 0-5 /hpf (0-5)
--- NOTE | 2024-03-21 11:41 | Electrocardiogram Report ---
Test Reason : Blood Pressure : */* mmHG Vent. Rate : 66 BPM Atrial Rate : 66 BPM P-R Int : 174 ms QRS Dur : 100 ms QT Int : 470 ms P-R-T Axes : 67 -36 101 degrees QTcB Int : 492 ms Normal sinus rhythm Left axis deviation Moderate voltage criteria for LVH, may be normal variant T wave abnormality, consider lateral ischemia Abnormal ECG When compared with ECG of 03-Mar-2021 05:07, Nonspecific T wave abnormality no longer evident in Inferior leads T wave inversion less evident in Anterolateral leads Confirmed by Reggie Hayes ([id number] on 03/21/2024 11:40:45 AM Referred By: Randy Weller Confirmed By: Reggie Hayes
--- NOTE | 2024-03-21 14:32 | Neurology Consultation ---
Date of Consultation March 21, 2024 Assessment & Plan (1) Dizziness: Recommend continue to monitor and treat symptoms of headache and vertigo Consider LP if headache is not improved with continued treatment Recommend LP if patient demonstrates elevated fever or changes in mentation Continue to monitor for s/s of infection Recommend CTA head & neck to eval vasculature for possible evidence of vasculitis Recommend echocardiogram as part of complete workup Continue frequent neurological assessments Obtain stat CT brain without contrast for any acute neurological decline Continue to monitor orthostatic vital signs Continue to monitor/control blood pressure & blood glucose Continue to monitor telemetry closely Continue to monitor renal and hepatic function, keep euvolemic Metabolic workup should include hgbA1c, fasting lipids Ok from neurology perspective for VTE prophylaxis PT/OT/SLT to eval and treat Telehealth Consultation Telehealth Information Telehealth Information: I performed this visit using a real-time telehealth connection between my location and the patients location ([facility]). After connecting through interactive tele-video, patient was identified by name and date of and/or wristband check.Patient (or authorized healthcare arborist representative) was informed that this was a telemedicine visit and it was being conducted confidentially over secure lines. My office door was closed and no one else was present in the room with me.Patient (or authorized healthcare arborist representative) provided consent to proceed with the visit, expressed an understanding of privacy and security of the telemedicine visit, and gave permission to have a hospital arborist representative in the room in order to assist with the visit and to conduct portions of the visit, as needed. I informed the patient (or authorized healthcare arborist representative) that I reviewed their record and presented the opportunity for them to ask any questions regarding the visit today. The patient agreed to participate. History of Present Illness Reason for Consultation: Abnormal brain MRI, possible vasculitis Requesting Physician: Dr. Toledo Attending Physician: Miguel Toledo MD History of Present Illness 48yo male with significant past medical history of HTN idiopathic cardiomyopathy liver cirrhosis, ETOH reports quit drinking in Feb 2020 and tobacco use disorder presented with headache for almost two weeks and vertigo and nausea. Reports the vertigo and nausea is only been going on for 1 day. Said had difficulty with ambulation prompting ER visit. Arrived with significant HTN emergency. It is now noted that he has not been entirely adherent with BP medication recommendations. He has been admitted in the past with HTN emergency. He has undergone MRI brain depicting no overt evidence of stroke or acute intracranial abnormality. There is evidence supporting chronic microvascular change in this clinical setting. Neurology consulted due to radiology differential including possible vasculitis. I have performed televideo consultation. He is alert & oriented; able to answer all questions appropriately, name objects on televideo monitor, repeat phrases a nd perform complex/embedded commands without deficit. Neurological exam is non lateralizing/nonfocal in terms of motor strength and coordination. He denies fever chills or vomiting. noting some nausea recently as his vertigo has affected him. He denies recent trauma. No reported cervicalgia. He states his cervical ROM is limited due to vertiginous symptoms if he turns his head one way or the other. He states his vertigo symptoms are controlled by laying supine with head turned slightly to the right. He denies ear pain pressure or fullness. no reported changes in hearing. He is agreeable to continued monitoring, BP control and a CTA head & neck. Denies acute complaint at this time. All questions answered. Allergies Allergy/AdvReac Type Severity Reaction Status Date / Time No Known Allergies Allergy Verified 05/21/21 07:36 Home Medications Medication Instructions Recorded Confirmed Type carvedilol 12.5 mg tablet 12.5 mg PO BID 03/21/24 03/21/24 History eplerenone 25 mg tablet 12.5 mg PO DAILY 03/21/24 03/21/24 History sacubitril 49 mg-valsartan 51 mg 1 tab PO BID 03/21/24 03/21/24 History tablet (Entresto) Patient History Medical History Kidney stones passed on own Hypertension hypertensive emergency with hospitalization, acute HFrEF d/c 03/09/2021, ongoing work-up with [facility] cardio and endocrinology including consideration for pheochromocytoma, outpatient 24 hour urine advised by endo-not yet completed by pt Heart failure hospitalization at [facility] with d/c 03/09/2021, EF 25-29% improved to 49% 03/20/2021, LifeVest, following [facility] cardio Tobacco use disorder Idiopathic cardiomyopathy EF 49% 03/20/2021, 25-59% during acute HFrEF hospitalization at [facility] d/c 03/09/2021: most suggestive of nonischemic, hypertension related cardiomyopathy with potential TTR amyloid per cardio Surgical History (Updated 05/21/21 @ 07:44 by Rachel Osman RN) Hx of vasectomy History of esophagogastroduodenoscopy (EGD) History of colonoscopy History of tooth extraction Family History (Updated 05/21/21 @ 07:42 by Rachel Osman RN) Grandmother Diabetes Uncle Diabetes Other Heart disease Social History Smoking Status: Never smoker Tobacco Type: Smokeless Tobacco (Dip or Chew) Second Hand Exposure: No; Do You Dip or Chew Tobacco: Yes; Hx Alcohol Use: Yes Alcohol type: beer Alcohol type Comment: 2 beers 3x/week Hx Substance Use: No Preferred Language: Portuguese Communication Ability: Effective Market Asset Protection Manager Required: No Beliefs That Will Affect Care: None marital status: Current Living Situation: Spouse Feels Safe at Home: Yes Assistive Devices: None Physical Exam Neurological Examination: Mental Status: Awake and alert. Oriented to person, place, and time. Fluency naming repetition and comprehension appear grossly intact. Affect remains appropriate. CN testing: I: Denies changes in ability to smell II:Reports room spinning visual sensation III/IV/: No evidence of gaze preference, hippus, nystagmus or roving eye mo vements V: Facial sensation reportedly grossly intact to light touch bilaterally VII: Facial movements appear without evidence of asymmetry VIII: Hearing appears grossly intact to loud voice bilaterally IX/X: Palate is unable to be accurately visualized XI: Shoulder shrug appears symmetric/ grossly intact bilaterally XII: Tongue protrudes midline without evidence of biting Motor exam: Strength appears grossly intact/symmetric in all extremities Sensory: Sensation is reportedly grossly intact throughout Coordination: Deferred Reflexes: Deferred Gait: Deferred Results & Data Vital Signs (Past 12 Hours) Vital Signs Temp Pulse Pulse Resp BP BP Pulse Ox 03/21/24 11:25 36.7 C 68 19 154/83 H 97 03/21/24 09:06 60 03/21/24 08:27 36.7 C 69 17 173/95 H 97 03/21/24 04:50 36.6 C 64 18 177/99 H 97 03/21/24 03:14 03/21/24 03:14 68 20 163/84 H 92 Pulse Ox O2 Del Method O2 Del Method 03/21/24 11:25 Room Air 03/21/24 09:06 03/21/24 08:27 Room Air 03/21/24 04:50 Room Air 03/21/24 03:14 92 Room Air 03/21/24 03:14 Room Air Laboratory Results Abnormal lab results 03/20/24 03/21/24 03/21/24 Range/Units 20:14 05:29 10:23 RBC 4.33 L (4.70-6.10) M/uL Hgb 13.4 L (14.0-18.0) g/dl Hct 39.7 L 36.9 L (42.0-52.0) % MCHC 36.3 H 36.3 H (32.0-36.0) g/dL Lymph # (Auto) 0.56 L 0.90 L (1.20-3.40) K/uL Glucose 132 H 115 H (70-99(Fasting)) mg/dl C-Reactive Protein 0.57 H (0-0.5) mg/dl Urine Appearance Cloudy A (Clear) Ur Specific Krebs 1.041 H (1.000-1.030) Urine Protein Trace H (Negative) U Hyaline Cast (Auto) 3-5 H (0-2) /lpf Diagnostic Findings Chest X-Ray 03/20/24 20:14 Exam(s): XR CXR 1 VIEW EXAM: XR Chest, 1 View CLINICAL HISTORY: Chest pain, nonspecific. TECHNIQUE: Frontal view of the chest. COMPARISON: Chest 2 views dated 03/06/2021 FINDINGS: Lungs: No focal consolidation. The pulmonary vasculature demonstrates no significant radiographic abnormality. Pleural space: Unremarkable. No pneumothorax. No large pleural effusion. Heart: Unremarkable. No cardiomegaly. Mediastinum: No significant abnormality identified. The trachea is midline. Bones/joints: Unremarkable. No acute fracture. IMPRESSION: No focal consolidation or acute cardiopulmonary process identified. Electronically signed by: Garret Caldwell MD 03/20/24 21:[address] 03/20/24 20:24 Exam(s): CT HEAD Without Contrast EXAM: CT Head Without Intravenous Contrast CLINICAL HISTORY: fall, high bp. TECHNIQUE: Axial computed tomography images of the head/brain without intravenous contrast. CTDI is 65.5 mGy and DLP is 1100.35 mGy-cm. Automated exposure control was utilized for the study. A dose lowering technique was utilized adhering to the principles of ALARA. COMPARISON: No relevant prior studies available. FINDINGS: Brain: Unremarkable. No hemorrhage. No significant white matter disease. No edema. Ventricles: Unremarkable. No ventriculomegaly. Bones/joints: Unremarkable. No acute fracture. Soft tissues: No significant overlying acute traumatic soft tissue abnormality. No radiopaque foreign body. Sinuses: Unremarkable as visualized. No acute sinusitis. Mastoid air cells: Unremarkable as visualized. No mastoid effusion. IMPRESSION: No acute intracranial process identified. Electronically signed by: Garret Caldwell MD 03/20/24 22:07 PM Brain MRI 03/21/24 00:30 EXAM: MR brain wo/w con CLINICAL HISTORY: fell yesterday morning. hypertension. HTN 191/107. dizziness. headache. TECHNIQUE: MRI of the brain was performed with and without 10cc gadavist intravenous contrast administration. Sequences obtained include pre-contrast and post-contrast T1-weighted, T2-weighted, FLAIR (Fluid-Attenuated Inversion Recovery), DWI (Diffusion-Weighted Imaging), and ADC (Apparent Diffusion Coefficient) sequences. COMPARISON: None. FINDINGS: Brain Parenchyma: No evidence of acute infarction or hemorrhage. Multiple foci and small areas of an altered signal are seen involving the bilateral [id number] and left temporal subcortical and periventricular white matter and jolene, eliciting high T2/FLAIR signal intensities, while inconspicuous on T1 WIS, no perifocal edema or mass effect. no corresponding diffusion restriction with isointense and high ADC denoting chronicity. Bilateral deep white matter periventricular confluent areas and sheets of bright T2 and FLAIR signal are seen denoting small arterial disease. Few bilateral cerebellar and cerebral corticomedullary junction tiny foci of SWI blooming suggest hypertensive angiopathy. Post-Contrast Findings: No abnormal enhancement of the brain parenchyma or meninges. Ventricles and Sulci: The ventricular system is within normal limits without evidence of hydrocephalus. Sulci and cisternal spaces are age-appropriate. Brainstem and Cerebellum: Normal appearance of the brainstem and cerebellum without focal lesions or abnormal enhancement. Vessels: Intracranial vessels appear normal without evidence of vascular malformations or aneurysms. Skull and Calvarium: No evidence of skull vault lesions or abnormal marrow signals within the calvarium. Incidental noted of marked left maxillary antrum polypoidal mucosal thickening. IMPRESSION: 1. No evidence of acute infarction or hemorrhage. 2. Bilateral cerebral periventricular and deep subcortical white matter foci and patches of altered signal, chronic microvascular ischemic changes or underlying vasculitis etiology may be considered, needs clinical and lab correlation. 3. Few bilateral cerebellar and cerebral corticomedullary junction tiny foci of SWI blooming suggest hypertensive angiopathy. 4. No abnormal enhancement of the brain parenchyma or meninges. Electronically signed by Sandhya Lama 03-21-2024 04:43 AM Medications Administered Home Medications Medication Instructions Recorded Confirmed Last Taken carvedilol 12.5 mg tablet 12.5 mg PO BID 03/21/24 03/21/24 Unknown eplerenone 25 mg tablet 12.5 mg PO DAILY 03/21/24 03/21/24 Unknown sacubitril 49 mg-valsartan 51 mg 1 tab PO BID 03/21/24 03/21/24 Unknown tablet (Entresto) Active Medications Generic Name Dose Route Start Last Admin Trade Name Freq PRN Reason Stop Dose Admin Acetaminophen 650 mg 03/21/24 02:56 03/21/24 04:49 Acetaminophen 325 Mg Tab PO 04/20/24 02:55 650 mg Q4H PRN Administration Pain or Fever Carvedilol 12.5 mg 03/21/24 09:00 03/21/24 10:04 Carvedilol 12.5 Mg Tab PO 04/20/24 08:59 12.5 mg BID SHONDA Administration Enoxaparin Sodium 40 mg 03/21/24 09:00 03/21/24 08:54 Enoxaparin Inj 40 Mg/0.4 Ml Syr SQ 04/20/24 08:59 Not Given Q24H SHONDA Ondansetron HCl 4 mg 03/21/24 02:56 03/21/24 04:49 Ondansetron Inj 2 Mg/Ml 2 Ml Vial IV 04/20/24 02:55 4 mg Q6H PRN Administration Nausea
--- NOTE | 2024-03-21 14:40 | Hospitalist Progress Note ---
Date of Service March 21, 2024 Assessment & Plan (1) Hypertensive urgency: Plan: per admitting service notes with addendum: 48-year-old male with past medical history significant for hypertension, history of idiopathic cardiomyopathy, history of cirrhosis of liver, polyarthropathy, tobacco use disorder presents with headache, nausea and vertigo and found to have hypertensive urgency. Patient says lights are bothering him. Still has some nausea. Still some headache. Laying down his vertigo is okay. No headache. No sore throat. No cough. No fevers. Today appetite is down. Denies chest pain. Currently resting no shortness of breath. No abdominal pain. Normal bowel and bladder movements. Patient was admitted in February 2021 with hypertensive emergency. At the time admitted to ICU requiring IV nitroglycerin and IV labetalol. Echo showed severe concentric LVH with severe diffuse left ventricular hypokinesis with EF of 25 to 29%. There was a, concern for amyloid cardiomyopathy but amyloid workup was negative. Nuclear stress test was done which was negative for ischemia. And repeat echocardiogram in May 2021 with normalization of EF to 60%. His 24-hour urine and plasma metanephrines levels were also elevated but normal MRI of the abdomen. Currently seems to be on Coreg, eplerenone and Entresto. As per epic he is supposed to also be on hydrochlorothiazide but seems patient not taking. Hypertensive urgency History of Idiopathic Cardiomyopathy Presented with a blood pressure of 215/130 Received IV labetalol Blood pressure improved to 160s Continue home Coreg eplerenone and Entresto IV labetalol as needed 03/21 Cardiology: increased Entresto BP improving monitor BP closely Vertigo Headache Nausea Mostly from above CT head is okay Brain MRI: 1. No evidence of acute infarction or hemorrhage. 2. Bilateral cerebral periventricular and deep subcortical white matter foci and patches of altered signal, chronic microvascular ischemic changes or underlying vasculitis etiology may be considered, needs clinical and lab correlation. 3. Few bilateral cerebellar and cerebral corticomedullary junction tiny foci of SWI blooming suggest hypertensive angiopathy. 4. No abnormal enhancement of the brain parenchyma or meninges. Neurology service consulted BL Carotid doppler studies ordered PT ordered for Carlos's maneuver DVT prophylaxis Lovenox Disposition Telemetry Full code. Admission and Anticipated Discharge Date Admission Date: March 21, 2024 Subjective ff up for htn urgency, headache, dizziness, etc seen resting in bed, not in distress states he is starting to feel better no headache today still has some dizziness- room spinning, when he turns his head on the right side reports some R posterior neck discomfort denies any ear symptoms denies focal weakness or numbness no chest pain, dyspnea, palpitations no other symptoms Review of Systems Review of Systems: all noted and negative except for above Physical Exam Physical Exam: General- oriented x 3, not in distress, speaks in sentences with no effort or accessory muscle use Eyes- anicteric Neck- no JVD Lungs- clear breath sounds bilaterally, no rales/wheezes Heart- normal rate, regular rhythm; no murmurs Abdomen- normal bowel sounds, nondistended, soft, nontender Extremities- no pretibial edema, no calf tenderness Neuro- alert, oriented x 3; no gross focal neurologic deficits Skin- warm & dry Results & Data Results & Data Vital Signs (Past 12 Hours) Vital Signs Temp Pulse Pulse Resp BP BP Pulse Ox 03/21/24 11:25 36.7 C 68 19 154/83 H 97 03/21/24 09:06 60 03/21/24 08:27 36.7 C 69 17 173/95 H 97 03/21/24 04:50 36.6 C 64 18 177/99 H 97 03/21/24 03:14 03/21/24 03:14 68 20 163/84 H 92 Pulse Ox O2 Del Method O2 Del Method 03/21/24 11:25 Room Air 03/21/24 09:06 03/21/24 08:27 Room Air 03/21/24 04:50 Room Air 03/21/24 03:14 92 Room Air 03/21/24 03:14 Room Air all noted and reviewed including below
--- NOTE | 2024-03-21 15:49 | Ultrasound Report ---
ULTRASOUND OF THE CAROTID ARTERIES CLINICAL HISTORY: dizziness, neck pain, r/o dissection TECHNIQUE: Real-time, grayscale, and color Doppler sonography of the bilateral carotid arteries is pe rformed. Images are reviewed in the transverse and longitudinal planes. COMPARISON: None available at the time of this dictation. FINDINGS: The carotid arteries are patent bilaterally and demonstrate antegrade flow. There is no atherosclerot ic plaque on the right and no atherosclerotic plaque on the left. Normal doppler arterial waveforms a re seen throughout. Velocity measurements are listed below. Common carotid peak systolic velocity (cm/sec): RIGHT: 111 LEFT: 77 ICA peak systolic velocity (cm/sec): RIGHT: 49 LEFT: 47 ICA/CC peak systolic ratio: RIGHT: 0.4 LEFT: 0.6 Antegrade flow was shown in the vertebral arteries. The external carotid arteries are patent. IMPRESSION: 1. There is no sonographic evidence of hemodynamically significant stenosis in the right or left car otid arterial system. 2. Antegrade flow is shown in the vertebral arteries. Society of Radiologists in Ultrasound consensus guidelines: Normal: ICA PSV is <125 cm/sec and no plaque or intimal thickening is visible sonographically additional criteria include ICA/CCA PSV ratio <2.0 and ICA EDV <40 cm/sec <50% ICA stenosis: ICA PSV is <125 cm/sec and plaque or intimal thickening is visible sonographically additional criteria include ICA/CCA PSV ratio <2.0 and ICA EDV <40 cm/sec 50-69% ICA stenosis: ICA PSV is 125-230 cm/sec and plaque is visible sonographically additional criteria include ICA/CCA PSV ratio of 2.0-4.0 and ICA EDV of 40-100 cm/sec ?70% ICA stenosis but less than near occlusion: ICA PSV is >230 cm/sec and visible plaque and luminal narrowing are seen at allan-scale and color Dopp ler ultrasound (the higher the Doppler parameters lie above the threshold of 230 cm/sec, the greater the likelihood of severe disease) additional criteria include ICA/CCA PSV ratio >4 and ICA EDV >100 cm/sec ACT 112: Negative or not required by law. Electronically signed by: Bhavesh Bourgeois M.D. 03/21/2024 3:48 PM
[2024-03-21] MEDS: VALSARTAN/SACUBITRIL 103/97MG TAB PO SCH (20:49)
[2024-03-21 22:46] VITALS: RESP 18
[2024-03-22] MEDS: SODIUM CHLORIDE 0.9% 1,000 ML IV SCH (09:18)
[2024-03-22] MEDS: amLODIPine BESYLATE 5 MG TAB PO SCH (09:25)
[2024-03-22 10:30] LABS: BUN Creatinine Ratio 17.2 (10-20); Calcium 8.9 mg/dl (8.6-10.3); Creatinine Clr Calc Pharmacy 95.6 ml/min; Potassium 3.8 mmol/L (3.5-5.1)
[2024-03-22] MEDS: EPLERENONE 25 MG TAB PO SCH (12:44)
--- NOTE | 2024-03-22 13:52 | Electrocardiogram Report ---
Test Reason : Blood Pressure : */* mmHG Vent. Rate : 59 BPM Atrial Rate : 59 BPM P-R Int : 176 ms QRS Dur : 104 ms QT Int : 460 ms P-R-T Axes : -9 92 -42 degrees QTcB Int : 455 ms Sinus bradycardia Rightward axis T wave inversions concerning for ischemia Abnormal ECG When compared with ECG of 20-Mar-2024 20:13, QRS axis Shifted right T wave inversion now evident in Inferior leads T wave inversion no longer evident in Lateral leads Confirmed by Reggie Hayes ([id number]) on 03/22/2024 1:51:48 PM Referred By: Randy Weller Confirmed By: Reggie Hyaes
[2024-03-22] MEDS: OPTIRAY 320 125ml IV ONE (14:12)
--- NOTE | 2024-03-22 14:33 | Cardiology Progress Note ---
Date of Service March 22, 2024 Assessment & Plan (1) Hypertensive urgency: (2) Dizziness: (3) Hypertensive heart disease: Plan 03/21/24 Patient admitted to [facility] with symptoms of hypertensive urgency, BP > 190/100 at home with dizziness, headache, vomiting. Patient non complaint with home medications including several doses of Entresto and diuretics (HCTZ/eplerenone) Continue carvedilol 12.5 mg BID. HR's 55-65 on telemetry and will not increase. Increase Entresto to 103/97 mg BID. Consider adding amlodipine if needed. Monitor BP. Patient wishes to avoid diuretics due to urination. He would likely not take them at home again. Since admission, labs unremarkable including HS troponin. Head CT was negative for acute process. Brain MRI with findings of microvascular disease and possible hypertensive angiopathy. Neuro was consulted. His Dizziness occurs with positional changes/head rotation. Consider treatment for vertigo as well. Further recommendations pending response to above medication adjustments. 03/22/24 Patient with improved symptoms No recurrent headache or dizziness. Dizziness was likely vertigo BP trending downward with increase in Entresto to 103/97 BID. Amlodipine also added this morning at 5 mg daily Continue carvedilol 12.5 mg BID. Patient has not been taking either diuretic at home on a regular basis. he wishes to avoid. Stop eplerenone for now. Will try to control BP without diuretic. BP well controlled this afternoon. Stable for discharge. Will arrange 2-4 week hospital f/u. Case discussed with Dr. Serra I spent a total of 30 minutes on the date of service in preparation, delivery, and documentation of the care provided to this patient, excluding any time spent in the performance of separately billed services. Liza Mello PA-C Department of Cardiology, [facility] This chart was completed in part utilizing Speech Voice Recognition Software. Grammatical errors, random word insertions, pronoun errors, and incomplete sentences are an occasional consequence of this system due to software limitations, ambient noise, and hardware issues. Any formal questions or concerns about the content, text, or information contained within the body of this dictation should be directly addressed to the provider for clarification. Admission and Anticipated Discharge Date Admission Date: March 21, 2024 Supervising Physician Co-Signing Physician Notes Patient was seen and evaluated personally. Full assessment and plan as outlined by advanced provider as above. Care and management discussed in detail and recommendations personally endorsed. Blood pressures trending towards better control. Feels somewhat sluggish today but otherwise no acute complaints. Vertigo issues appear to improved. Amlodipine begun this morning suspect several days to reach full potency Subjective Patient feeling better today. Dizziness has improved. No chest pain or dyspnea. BP trending down. Patient does not want to take diuretics upon discharge. He has been non compliant with them. Review of Systems Review of Systems: All systems reviewed & are unremarkable except as noted in HPI & below Physical Exam Constitutional: WD/WN, vitals as above average body habitus; no acute distress Neck: normal visual inspection Respiratory: normal respiratory effort Auscultation: lungs clear to auscultation bilaterally Cardiovascular: Rate/Rhythm: regular rate and regular rhythm Heart Sounds: normal S1, normal S2 and + murmur (II/ systolic murmur LSB) Vessels: no JVD Extremities: no edema Gastrointestinal (Abdomen): normal bowel sounds, soft, nontender, no hepatosplenomegaly Neurologic: PERRL, EOMI, accommodation nl, no face palsy, no dysarthria Psychiatric: A+Ox3, euthymic affect Results & Data Vital Signs (Past 12 Hours) Vital Signs Temp Pulse Pulse Resp BP Pulse Ox O2 Del Method 03/22/24 11:54 36.7 C 66 18 123/74 98 Room Air 03/22/24 09:03 36.5 C 59 L 18 156/90 H 99 Room Air 03/22/24 07:37 56 L 03/22/24 03:51 36.7 C 62 18 150/82 H 95 Room Air Laboratory Results Comprehensive Metabolic Panel 03/22/24 Range/Units 09:39 Sodium 138 (136-145) mmol/L Potassium 3.8 (3.5-5.1) mmol/L Chloride 103 (98-107) mmol/L Carbon Dioxide 29 (21-32) mmol/L BUN 20 (6-23) mg/dl Creatinine 1.16 (0.6-1.4) mg/dl Glucose 134 H (70-99(Fasting)) mg/dl Calcium 8.9 (8.6-10.3) mg/dl Intake and Output 03/21/24 03/22/24 03/22/24 22:59 06:59 14:59 Intake Total 250 / 670 200 / 670 Balance 250 / 670 200 / 670 Intake: Oral 250 / 670 200 / 670 Diagnostic Findings Telemetry reviewed: NSR. No arrhythmias Medications Administered Current Inpatient Medications Acetaminophen (Acetaminophen 325 Mg Tab) 650 mg PO Q4H PRN PRN Reason: Pain or Fever Stop: 04/20/24 02:55 Last Admin: 03/21/24 04:49 Dose: 650 mg Amlodipine Besylate (Amlodipine Besylate 5 Mg Tab) 5 mg PO QAM [facility] Stop: 04/21/24 08:59 Last Admin: 03/22/24 09:25 Dose: 5 mg Carvedilol (Carvedilol 12.5 Mg Tab) 12.5 mg PO BID [facility] Stop: 04/20/24 08:59 Last Admin: 03/22/24 09:26 Dose: 12.5 mg Enoxaparin Sodium (Enoxaparin Inj 40 Mg/0.4 Ml Syr) 40 mg SQ Q24H [facility] Stop: 04/20/24 08:59 Last Admin: 03/22/24 09:35 Dose: Not Given Sodium Chloride (Nss) 1,000 mls @ 60 mls/hr IV .[id number] [facility] Stop: 03/23/24 01:09 Last Admin: 03/22/24 09:18 Dose: 60 mls/hr Labetalol HCl (Labetalol Hcl Iv 5 Mg/Ml 20ml) 10 mg IV Q4H PRN PRN Reason: Hypertension Stop: 04/20/24 02:55 Nitroglycerin (Nitroglycerin Sl 0.4 Mg/Tab Tab) 0.4 mg SL Q5M PRN PRN Reason: Chest Pain Stop: 04/20/24 02:55 Ondansetron HCl (Ondansetron Inj 2 Mg/Ml 2 Ml Vial) 4 mg IV Q6H PRN PRN Reason: Nausea Stop: 04/20/24 02:55 Last Admin: 03/21/24 04:49 Dose: 4 mg Sacubitril/Valsartan (Valsartan/Sacubitril 103/97mg Tab) 1 tab PO BID [facility] Stop: 04/20/24 20:59 Last Admin: 03/22/24 09:26 Dose: 1 tab
[2024-03-22 14:45] VITALS: BP 174/110; PULSE 68; TEMP 97.9; O2SAT 96
--- NOTE | 2024-03-22 15:11 | CT Scan Report ---
CT angio neck with con CLINICAL HISTORY: 48 years-old Male with r/o vasculitis. Acute headache with vertigo and hypertens ion. Moderate T2/FLAIR hyperintense foci noted throughout the white matter on the comparison MRI.. COMPARISON STUDY: Carotid ultrasound and brain MRI 03/21/2024 TECHNIQUE: Following the IV administration of 119 mL of Optiray, CT angiogram of the neck was perform ed from the aortic arch to the skull base. Images are reviewed in the axial, sagittal, and coronal pl anes. 3-D MIPS images are created and assessed. IV contrast was administered without complication. Al l measurements were calculated based on NASCET criteria. A dose lowering technique was utilized adhe ring to the principles of ALARA. CT DOSE: 496.3 mGy.cm FINDINGS: Three-vessel morphology of the thoracic aorta arch. Patency of the innominate and image subclavian ar teries. The common and internal carotid arteries are widely patent. Minimal mixing artifacts in the r ight carotid bulb, image 51 series 4. No significant atherosclerosis. No aneurysm, dissection, high-g rade stenosis, arterial occlusion or vessel irregularity. The vertebral and basilar arteries are barrientos nt. Lung apices are clear. No pneumothorax. Unremarkable soft tissues. There is severe greater than 75% o pacification of the left maxillary sinus. The mastoid air cells and middle ear cavities are clear. Nu merous dental caries. IMPRESSION:Unremarkable CTA of the neck. ACT 112: Negative or not required by law. The above report was generated using voice recognition software. It may contain grammatical, syntax o r spelling errors. Electronically signed by: Lit Alberts M.D. 03/22/2024 3:09 PM
--- NOTE | 2024-03-22 15:46 | Hospitalist Progress Note ---
Date of Service March 22, 2024 Assessment & Plan (1) Hypertensive urgency: Plan: per admitting service notes with addendum: 48-year-old male with past medical history significant for hypertension, history of idiopathic cardiomyopathy, history of cirrhosis of liver, polyarthropathy, tobacco use disorder presents with headache, nausea and vertigo and found to have hypertensive urgency. Patient says lights are bothering him. Still has some nausea. Still some headache. Laying down his vertigo is okay. No headache. No sore throat. No cough. No fevers. Today appetite is down. Denies chest pain. Currently resting no shortness of breath. No abdominal pain. Normal bowel and bladder movements. Patient was admitted in February 2021 with hypertensive emergency. At the time admitted to ICU requiring IV nitroglycerin and IV labetalol. Echo showed severe concentric LVH with severe diffuse left ventricular hypokinesis with EF of 25 to 29%. There was a, concern for amyloid cardiomyopathy but amyloid workup was negative. Nuclear stress test was done which was negative for ischemia. And repeat echocardiogram in May 2021 with normalization of EF to 60%. His 24-hour urine and plasma metanephrines levels were also elevated but normal MRI of the abdomen. Currently seems to be on Coreg, eplerenone and Entresto. As per epic he is supposed to also be on hydrochlorothiazide but seems patient not taking. Hypertensive urgency History of Idiopathic Cardiomyopathy Presented with a blood pressure of 215/130 Received IV labetalol Blood pressure improved to 160s Continue home Coreg eplerenone and Entresto IV labetalol as needed 03/21 Cardiology: increased Entresto BP improving monitor BP closely Vertigo Headache Nausea Mostly from above CT head is okay Brain MRI: 1. No evidence of acute infarction or hemorrhage. 2. Bilateral cerebral periventricular and deep subcortical white matter foci and patches of altered signal, chronic microvascular ischemic changes or underlying vasculitis etiology may be considered, needs clinical and lab correlation. 3. Few bilateral cerebellar and cerebral corticomedullary junction tiny foci of SWI blooming suggest hypertensive angiopathy. 4. No abnormal enhancement of the brain parenchyma or meninges. Neurology service consulted [place] Carotid doppler studies ordered PT ordered for Carlos's maneuver DVT prophylaxis Lovenox Disposition Telemetry Full code. Admission and Anticipated Discharge Date Admission Date: March 21, 2024 Subjective ff up for headache, hypertensive urgency, etc seen resting in bed, comfortable states he feels fine overall Results & Data Results & Data Vital Signs (Past 12 Hours) Vital Signs Temp Pulse Pulse Resp BP Pulse Ox O2 Del Method 03/22/24 14:43 36.6 C 68 18 174/110 H 96 Room Air 03/22/24 11:54 36.7 C 66 18 123/74 98 Room Air 03/22/24 09:03 36.5 C 59 L 18 156/90 H 99 Room Air 03/22/24 07:37 56 L 03/22/24 03:51 36.7 C 62 18 150/82 H 95 Room Air
--- NOTE | 2024-03-22 18:27 | Discharge Summary ---
Discharge Summary Date of Service March 22, 2024 Principal Dx & Hospital Course #1 = Principal Diagnosis (1) Hypertensive urgency: per admitting service notes with addendum: 48-year-old male with past medical history significant for hypertension, history of idiopathic cardiomyopathy, history of cirrhosis of liver, polyarthropathy, tobacco use disorder presents with headache, nausea and vertigo and found to have hypertensive urgency. Patient says lights are bothering him. Still has some nausea. Still some headache. Laying down his vertigo is okay. No headache. No sore throat. No cough. No fevers. Today appetite is down. Denies chest pain. Currently resting no shortness of breath. No abdominal pain. Normal bowel and bladder movements. Patient was admitted in February 2021 with hypertensive emergency. At the time admitted to ICU requiring IV nitroglycerin and IV labetalol. Echo showed severe concentric LVH with severe diffuse left ventricular hypokinesis with EF of 25 to 29%. There was a, concern for amyloid cardiomyopathy but amyloid workup was negative. Nuclear stress test was done which was negative for ischemia. And repeat echocardiogram in May 2021 with normalization of EF to 60%. His 24-hour urine and plasma metanephrines levels were also elevated but normal MRI of the abdomen. Currently seems to be on Coreg, eplerenone and Entresto. As per epic he is supposed to also be on hydrochlorothiazide but seems patient not taking. Hypertensive urgency History of Idiopathic Cardiomyopathy Presented with a blood pressure of 215/130 Received IV labetalol Blood pressure improved to 160s Continue home Coreg eplerenone and Entresto IV labetalol as needed 03/21 Cardiology: increased Entresto BP improving monitor BP closely Vertigo Headache Nausea Mostly from above CT head is okay Brain MRI: 1. No evidence of acute infarction or hemorrhage. 2. Bilateral cerebral periventricular and deep subcortical white matter foci and patches of altered signal, chronic microvascular ischemic changes or underlying vasculitis etiology may be considered, needs clinical and lab correlation. 3. Few bilateral cerebellar and cerebral corticomedullary junction tiny foci of SWI blooming suggest hypertensive angiopathy. 4. No abnormal enhancement of the brain parenchyma or meninges. Neurology service consulted [place] Carotid doppler studies ordered PT ordered for Carlos's maneuver DVT prophylaxis Lovenox Disposition Telemetry Full code. Admission HPI Per Admitting Provider 48-year-old male with past medical history significant for hypertension, history of idiopathic cardiomyopathy, history of cirrhosis of liver, polyarthropathy, tobacco use disorder presents with headache, nausea and vertigo and found to have hypertensive urgency. Patient says lights are bothering him. Still has some nausea. Still some headache. Laying down his vertigo is okay. No headache. No sore throat. No cough. No fevers. Today appetite is down. Denies chest pain. Currently resting no shortness of breath. No abdominal pain. Normal bowel and bladder movements. Patient was admitted in February 2021 with hypertensive emergency. At the time admitted to ICU requiring IV nitroglycerin and IV labetalol. Echo showed severe concentric LVH with severe diffuse left ventricular hypokinesis with EF of 25 to 29%. There was a, concern for amyloid cardiomyopathy but amyloid workup was negative. Nuclear stress test was done which was negative for ischemia. And repeat echocardiogram in May 2021 with normalization of EF to 60%. His 24-hour urine and plasma metanephrines levels were also elevated but normal MRI of the abdomen. Currently seems to be on Coreg, eplerenone and Entresto. As per epic he is supposed to also be on hydrochlorothiazide but seems patient not taking. Past medical history. As mentioned above Past surgical history. Colonoscopy and EGD. Social history. . Snuff tobacco. Current alcohol use occasional. No drug use. . Family history. Father had a heart disease in his 40s. Maternal grandfather passed in his 50s from heart disorder. Paternal grandfather passed in 50s from heart disorder. Updated Medication List Medication Instructions Recorded Confirmed Type carvedilol 12.5 mg tablet 12.5 mg PO BID 03/21/24 03/21/24 History amlodipine 5 mg tablet (Norvasc) 5 mg PO QAM 30 days #30 tabs 03/22/24 Rx amoxicillin 875 mg-potassium 1 tab PO BID 10 days #20 tabs 03/22/24 Rx clavulanate 125 mg tablet sacubitril 97 mg-valsartan 103 mg 1 tab PO BID 30 days #60 tabs 03/22/24 Rx tablet (Entresto) Hospital Stay Data Consultations 03/20/24 23:01 ED Decision to Admit Stat 03/21/24 07:34 Consult Neurology Routine 03/21/24 08:00 Consult Cardiology Routine Diagnostic Imagining Performed 03/20/24 20:24 CT head/brain wo con Stat 03/21/24 00:30 MRI Brain [MR brain wo/w con] Urgent 03/21/24 14:04 Carotid duplex [US carotid doppler BI] Routine 03/22/24 11:07 CT angio neck with con Routine Pending Results Patient Have Any Pending Studies at Discharge: No Discharge Instructions Given to Patient (Per Discharging Provider) PLEASE REFER TO YOUR NEW MEDICATION LIST AND FOLLOW INSTRUCTIONS CAREFULLY. Increase Entresto to 103/97mg BID Start Amlodipine 5mg po daily. Stop taking Eplerenone. Start Augmentin- antibiotic for Left maxillary sinusitis. Take a probiotic daily x 1 month. PLEASE CALL YOUR PRIMARY CARE PHYSICIAN OR RETURN TO THE ER IF WITH WORSENING OF SYMPTOMS, INCLUDING headache, dizziness, chest pain, shortness of breath, etc FOLLOW UP WITH PRIMARY CARE PHYSICIAN IN 1 WEEK. FOLLOW UP WITH BILINGUAL INTERPRETER IN 2 WEEKS.
== END 2024-03-22 16:14 | disposition home or self-care (01) | DRG 305 ==
LOC: ED 19:58 → EDINP 03-21 00:17 → 4W 03-21 02:58